=== PATIENT | male | born 1950 | race Caucasian/White ===

== ENCOUNTER 2019-06-12 20:52 | Inpatient (IN) | payer OTHER, MEDICARE, SELFPAY ==
[2019-06-12 20:54] VITALS: BP 170/90; PULSE 85; RESP 18; TEMP 36.6; O2SAT 93; BMI 27.1
--- NOTE | 2019-06-12 21:01 | ED_ITS ---
Entered by Sherry Nick, acting as scribe for Jethro Pinto MD, [facility] [place] H[place] - Fall General: Chief Complaint: Fall Stated Complaint: Confusion/Fall Time Seen by Provider: 06/12/19 21:01 Source: patient Mode of arrival: EMS Limitations: no limitations History of Present Illness: HPI Narrative: 68 yo Male presents to ED with complaint of fall and altered mental status. Pt states that he is feeling bad and he thinks it is because of his left foot. Pt states that it isn't getting any blood and he is getting ready to have it cut off. Pt states that he is here to find out if he has blood poisoning. Pt states that he was supposed to go to the vascular surgeon on May 31 but it was the holidays so they didn't go. Pt states that he fell trying to transfer from the wheelchair to the bed because he is really weak. complaint: fall Fall from: wheelchair Fall witnessed: yes, by family Place fall occurred: home Loss of consciousness: None Prolonged down time: no Symptoms prior to fall: none Associated symptoms-after fall: Reports weakness Review of Systems General: Reports: 10 or more systems reviewed and unremarkable except in HPI and below Musc: Reports: extremity pain Neuro: Reports: weakness in extremities PFSH ED PFSH: Statuses (acute, chronic, etc) shown below reflect problem list status as previously entered and may not be historically accurate Medical History (Updated 06/12/19 @ 22:37 by Agustín Fritz DO) CAD (coronary artery disease) (Chronic) CHF (congestive heart failure) (Chronic) CVA (cerebral vascular accident) (Acute) Diabetes (Chronic) Gout (Acute) HTN (hypertension) (Chronic) Hyperkalemia (Acute) Myocardial infarction (Acute) Osteomyelitis (Chronic) Pneumonia (Acute) Renal failure (Chronic) Sickle cell disease (Acute) Surgical History (Updated 06/12/19 @ 21:20 by Sherry Nick) Hx of right BKA (Acute) Social History Smoking and tobacco status: never smoked Physical Exam Const: COMMON NORMALS: no apparent distress, average body habitus, oriented x3, no limitations, healthy appearing, alert and well nourished HENMT: COMMON NORMALS: normocephalic, head/scalp atraumatic, hearing grossly normal bilaterally, external ears normal, EAC's normal, TM's normal bilaterally, external nose normal, nasal mucous membranes and turbinates normal, moist oral mucous membranes, oropharynx normal, dentition normal and gingiva normal HEAD & SCALP: normocephalic and atraumatic NOSE: external nose normal and nasal mucous membranes and turbinates normal EXTERNAL EAR: Yes external ears normal EXTERNAL AUDITORY CANAL: EAC's normal TYMPANIC MEMBRANE: TM's normal bilaterally Eye: COMMON NORMALS: PERRL, EOMs intact bilaterally, conjunctivae normal, no scleral icterus, no papilledema, normal visual lanza by confrontation and fundi normal bilaterally CONJUNCTIVA: Yes conjunctivae normal PUPIL: Yes PERRL DIRECT OPHTHALMOSCOPY: Yes no papilledema and Yes fundi normal bilaterally Neck/C-Spine: COMMON NORMALS: full ROM, supple, no meningeal signs, no JVD and no carotid bruits Chest: COMMONS NORMALS: inspection of chest normal and palpation of chest normal Resp: COMMON NORMALS: normal respiratory effort, no retractions, no use of accessory muscles, clear to auscultation bilaterally and percussion normal AUSCULTATION: clear to auscultation bilaterally PERCUSSION: percussion normal Cardio: COMMON NORMALS: no JVD, regular rate, regular rhythm, S1 normal heart sound, S2 normal heart sound, no gallops, no clicks, no murmurs, no rub and peripheral pulses 2+ throughout RATE: regular rate RHYTHM: regular rhythm HEART SOUNDS: S1 normal and S2 normal PERIPHERAL PULSES: pulses 2+ throughout GI: COMMON NORMALS: normal to inspection, nondistended, normoactive bowel sounds, soft to palpation, non-tender, no hepatosplenomegaly, no masses and no bruits PALPATION: Yes soft and Yes no hepatosplenomegaly : COMMON NORMALS: Yes no CVA tenderness BLADDER/KIDNEY EXAM: Yes no CVA tenderness Back/Pelvis: COMMON NORMALS: no CVA tenderness Extremity: COMMON NORMALS: normal to inspection, full ROM, normal capillary refill, no joint enlargement, no clubbing, cyanosis or edema, no calf tenderness and no pedal edema RIGHT LOWER EXTREMITY: Yes lower leg (Right BKA) LEFT LOWER EXTREMITY: Yes lower leg (Left lower extremity is warm to touch when co mpared to the right, mildly tender. There is a necrotizing ulcer on the heel of the left foot with foul-smelling drainage. Dorsalis pedis difficult to palpate.) Neuro: COMMON NORMALS: oriented x3 SENSORIUM/ORIENTATION: Yes alert MENINGEAL SIGNS: Yes no meningeal signs Skin: COMMON NORMALS: no rashes or lesions noted, no wounds, skin turgor normal, no jaundice, no petechiae and no mottling GENERAL SKIN EXAM: no rashes or lesions noted and turgor normal Course Consultations: Consultation #1: Discussed with Dr. Fritz and she kindly accepted the patient to her service. Time: 22:33 Vital Signs: Vital signs: Vital Signs Temperature 97.8 F 06/12/19 20:54 Pulse Rate 84 06/12/19 21:25 Respiratory Rate 18 06/12/19 22:36 Blood Pressure 180/66 06/12/19 21:25 Pulse Oximetry 94 06/12/19 21:25 MDM - Fall MDM Narrative: Medical decision making narrative: Patient was brought into the emergency department with concerns of altered mental status. In the emergency department he was alert and oriented however he has a chronic ulcer on his left heel. On going through his records at [facility] I see he has had an arterial duplex as well as vascular evaluation of his aorta and lower extremity arteries. He does have blockage of the left popliteal, all the arteries above that are patent. I also saw an MRI from April which showed he has osteomyelitis of the calcaneus bone on the left. He apparently had been on antibiotics until recently. In the records he was advised to have a left below-knee amputation which the patient was open to but his apparently was hesitant. These nights the patient also told me that he believes he needs an amputation and he is ready for this. He is therefore admitted for IV antibiotics for the osteomyelitis and consultation with orthopedic surgery/podiatry for evaluation and to see if the patient is a candidate for a left below-knee amputation. The patient also has a history of end-stage renal disease and he is on hemodialysis Wednesdays and Fridays. No imaging was done of his lower extremity because he already has diagnosed peripheral artery disease as well as osteomyelitis. Medical Records: Attestation: I reviewed the patient's medical records. Medical records narrative: Percutaneous angiogram and intervention done on 05/03/2019 at [facility] in [place]. Angiographic findings include aorta are widely patent, renal artery origins are widely patent iliacs common iliac artery bilaterally widely patent, internal iliac arteries patent. Femoral vessels common femoral artery bilaterally widely patent, bilateral profunda femoral arteries widely patent left superficial femoral artery widely patent. Popliteal left severe stenosis right above knee joint. Tibial vessels left posterior tibial occluded, peroneal occluded. MRI of the ankle without contrast on the left performed at [facility] in [place] on 04/27/2019. Impression among other things include osteomyelitis involving the posterior superior lateral aspect of the posterior process of the calcaneus. Ultrasound duplex arterial of the left leg showed severe arterial insufficiency at rest involving the left lower extremity. Lab Data: Attestation: I reviewed the patient's lab results. Labs: Lab Results 06/12/19 06/12/19 06/12/19 Range/Units 21:18 21:18 21:18 WBC 8.2 (4.0-10.0) 10^3/ uL RBC 3.14 L (4.1-5.3) 10^6/u L Hgb 8.9 L (11.7-16.6) g/dL Hct 28.7 L (42.0-52.0) % MCV 91.4 (80-94) fL MCH 28.3 (28.0-34.0) pg MCHC 31.0 (30.0-36.0) g/dL RDW 14.4 (12.1-15.1) % Plt Count 200 (130-400) 10^3/c mm MPV 10.0 (7.4-10.4) fL Neut % (Auto) 81.5 % Lymph % (Auto) 6.0 % [place] % (Auto) 10.5 % Eos % (Auto) 1.1 % Baso % (Auto) 0.4 % Neut # (Auto) 6.7 (1.8-7.7) 10^3/u L Lymph # (Auto) 0.5 L (0.8-4.8) 10^3/u L [place] # (Auto) 0.9 (0.2-0.9) 10^3/u L Eos # (Auto) 0.1 (0.0-0.8) 10^3/u L Baso # (Auto) 0.0 (0.0-0.1) 10^3/u L Nucleated RBC % (a uto) 0 % Nucleated RBCs # 0.0 /100WBC Sodium 146 H (136-145) mmol/L Potassium 4.4 (3.5-5.1) mmol/L Chloride 96 L (98-107) mmol/L Carbon Dioxide 27 (22-29) mmol/L Anion Gap 27.4 H (5-19) BUN 48 H (8-23) mg/dL Creatinine 6.4 H* (0.7-1.2) mg/dL GFR Calculation 8.7 L (90-130) mL/min Glucose 140 H (74-106) mg/dL Lactate 2.7 H (0.5-2.2) mmol/L Calcium 9.7 (8.8-10.2) mg/Dl Total Bilirubin 0.4 (0.15-1.2) mg/dL AST 18 (0-40) U/L ALT 11 (0-41) U/L Alkaline Phosphata se 181 H (40-130) IU/L C-Reactive Protein 120.9 H (0.0-4.9) mg/L Total Protein 7.5 (6.6-8.7) g/dL Albumin 3.7 (3.5-5.2) g/dL Globulin 3.8 (1.3-4.6) g/dL Discharge Plan Discharge Admit Provider: Agustín Fritz Prescriptions: No Action Adult Low Dose Aspirin 81 mg Tablet,Delayed Release (Dr/Ec) 81 mg PO DAILY RF: 0 clopidogrel 75 mg Tablet 75 mg PO DAILY RF: 0 sevelamer HCl 800 mg Tablet 800 mg PO TID RF: 0 tramadol 50 mg Tablet 50 mg PO Q4H PRN (Reason: Pain) RF: 0 isosorbide mononitrate 120 mg Tablet Extended Release 24 Hr 120 mg PO DAILY RF: 0 pravastatin 80 mg Tablet 80 mg PO BEDTIME RF: 0 amlodipine 10 mg Tablet 10 mg PO DAILY RF: 0 levofloxacin 750 mg Tablet 750 mg PO DAILY RF: 0 naloxone 4 mg/actuation [place],Non-Aerosol 4 mg INTRANASAL UNK RF: 0 Coding Level of Care Code ED Tailercpa for Chg Fwd Exam Problem Focused The documentation recorded by the Sandoval hennessy Carmen, accurately reflects the service I personally performed and the decisions made by Millie bee Adegoke I, MD, [facility] [place] Jun 12, 2019 20:52
[2019-06-12 21:25] VITALS: BP 180/66; PULSE 84; RESP 21; O2SAT 94
[2019-06-12 21:41] LABS: Basophils % 0.4 %; Eosinophils # 0.1 10^3/uL (0.0-0.8); Eosinophils % 1.1 %; Hematocrit 28.7 % (42.0-52.0); Hemoglobin 8.9 g/dL (11.7-16.6); Lymphocytes # 0.5 10^3/uL (0.8-4.8); Mean Corpuscular Hemoglobin 28.3 pg (28.0-34.0); Mean Corpuscular Volume 91.4 fL (80-94); Monocytes # 0.9 10^3/uL (0.2-0.9); Monocytes % 10.5 %; Neutrophils # 6.7 10^3/uL (1.8-7.7); Neutrophils % 81.5 %; Nucleated Red Blood Cells % 0 %; Platelet Count 200 10^3/cmm (130-400); Red Blood Count 3.14 10^6/uL (4.1-5.3); Red Cell Distribution Width 14.4 % (12.1-15.1); White Blood Count 8.2 10^3/uL (4.0-10.0)
[2019-06-12 22:01] LABS: Lactate (Lactic Acid level) 2.7 mmol/L (0.5-2.2)
[2019-06-12 22:02] LABS: Alanine Aminotransferase 11 U/L (0-41); Albumin Level 3.7 g/dL (3.5-5.2); Alkaline Phosphatase 181 IU/L (40-130); Anion Gap 27.4 (5-19); Aspartate Amino Transferase 18 U/L (0-40); Blood Urea Nitrogen 48 mg/dL (8-23); C Reactive Protein 120.9 mg/L (0.0-4.9); Calcium 9.7 mg/Dl (8.8-10.2); Carbon Dioxide 27 mmol/L (22-29); Chloride 96 mmol/L (98-107); Globulin 3.8 g/dL (1.3-4.6); Glomerular Filtration Rate 8.7 mL/min (90-130); Glucose 140 mg/dL (74-106); Potassium 4.4 mmol/L (3.5-5.1); Sodium 146 mmol/L (136-145); Total Bilirubin 0.4 mg/dL (0.15-1.2); Total Protein 7.5 g/dL (6.6-8.7)
--- NOTE | 2019-06-12 22:15 | PC.NURSE ---
Spoke with pt over the phone. Home medication list collected - NKDA. Pt states pt has had an increase of confusion over the past 2-3 days with nausea and poor appetite. unsure if pt hit head during fall, pt was found in floor by and pt is poor historian. states pt is being seen in [facility] [place] by surgeon for pending left foot amputation. states last dialysis treatment was Thursday, and is due for dialysis tomorrow.
--- NOTE | 2019-06-12 22:34 | P.HP_ITS ---
Providers/Chief Complaint Chief Complaint: OSTEOMYELITIS RIGHT CALCANEOUS History of Present Illness Neel Austin is a 68 year old male with past medical history of ESRD on hemodialysis MWF, CHF, hypertension, COPD, DMII, severe peripheral vascular disease status post right BKA and severe peripheral vascular disease on the left, recently diagnosed osteomyelitis on antibiotics since April presents with left foot nonhealing ulcer. Patient was advised to get left BKA at his previous facility but his initially declined. Patient was diagnosed with Osteomyelitis of the left foot based on an MRI done in April and has been on antibiotics since (ran out yesterday as per report). Patient now presents with altered mental status and left heel ulcer that is foul-smelling. Patient unable to give proper history so history obtained from chart and EMR. As per ED, patient's found him on the floor very confused. He has been more altered than his baseline for the past couple of days. Noted to have sepsis with elevated lactate and foul-smelling ulcer on the left foot Review of Systems Narrative: Unable to obtain due to mental status refer to HPI Medications/Allergies Home Medications Medication Instructions Recorded Confirmed Last Taken Type amlodipine 10 mg PO DAILY 06/12/19 06/12/19 Unknown History aspirin [Adult Low Dose Aspirin] 81 mg PO DAILY 06/12/19 06/12/19 Unknown History clopidogrel 75 mg PO DAILY 06/12/19 06/12/19 Unknown History isosorbide mononitrate 120 mg PO DAILY 06/12/19 06/12/19 Unknown History levofloxacin 750 mg PO DAILY 06/12/19 06/12/19 1 Day Ago History ~06/11/19 naloxone 4 mg INTRANASAL UNK 06/12/19 06/12/19 Unknown History pravastatin 80 mg PO BEDTIME 06/12/19 06/12/19 Unknown History sevelamer HCl 800 mg PO TID 06/12/19 06/12/19 Unknown History tramadol 50 mg PO Q4H PRN 06/12/19 06/12/19 Unknown History Allergies Allergy/AdvReac Type Severity Reaction Status Date / Time No Known Allergies Allergy Verified 06/12/19 21:29 PFSH Acute PFSH: Statuses (acute, chronic, etc) shown below reflect problem list status as previously entered and may not be historically accurate Medical History CAD (coronary artery disease) (Chronic) CHF (congestive heart failure) (Chronic) CVA (cerebral vascular accident) (Acute) Diabetes (Chronic) Gout (Acute) HTN (hypertension) (Chronic) Hyperkalemia (Acute) Myocardial infarction (Acute) Osteomyelitis (Chronic) Pneumonia (Acute) Renal failure (Chronic) Sickle cell disease (Acute) Surgical History Hx of right BKA (Acute) Social History Smoking and tobacco status: never smoked Vitals/I&O/Wt Last Vital Signs Temp 97.8 F 06/12/19 20:54 Pulse 84 06/12/19 21:25 Resp 21 H 06/12/19 21:25 BP 180/66 06/12/19 21:25 Pulse Ox 94 06/12/19 21:25 Weight last 48 hrs Weight 90.718 kg Physical Exam Const: COMMON NORMALS: no apparent distress EXAM LIMITATIONS: altered mental status Neck/C-Spine: COMMON NORMALS: supple Resp: COMMON NORMALS: normal respiratory effort AUSCULTATION: clear to auscultation bilaterally Cardio: RATE: tachycardic HEART SOUNDS: S1 normal and S2 normal GI: COMMON NORMALS: normal to inspection, nondistended, normoactive bowel sounds Extremity: OTHER: + Right BKA,+ left heel ulcer foul-smelling and black, erythematous Skin: OTHER: + + L foot ulcer black and foul smelling Data : 06/12/19 21:18 06/12/19 21:18 Micro: Microbiology 06/12/19 21:22 Blood Culture - Preliminary Blood SPECIMEN COLLECTED 06/12/19 21:18 Blood Culture - Preliminary Blood SPECIMEN COLLECTED A&P Assessment and plan (1) CAD (coronary artery disease): Status: Chronic Code(s): I25.10 - Atherosclerotic heart disease of [place] coronary artery without angina pectoris (2) CHF (congestive heart failure): Status: Chronic Code(s): I50.9 - Heart failure, unspecified (3) Diabetes: Status: Chronic Code(s): E11.9 - Type 2 diabetes mellitus without complications (4) Renal failure: Status: Chronic Code(s): N19 - Unspecified kidney failure (5) Osteomyelitis: Status: Chronic Code(s): M86.9 - Osteomyelitis, unspecified (6) HTN (hypertension): Status: Chronic Code(s): I10 - Essential (primary) hypertension (7) Sepsis: #Altered mental status 2/2 osteomyelitis of the left heel with sepsis (elevated lactate, tachycardia, altered mental status) ?IV Vanco and Zosyn ?ESR CRP ?Podiatry follow-up for amputation of left leg Trend lactate ?IV fluids with caution in setting of ESRD and CHF #ESRD on hemodialysis Thursday ?Dialysis tomorrow #Hypertension ?Continue with home medication #DMII - ISS #Continue with rest of chronic home medications # DVT ppx: Heparing subq Status: Acute Code(s): A41.9 - Sepsis, unspecified organism Attestations Medical Necessity Statement*: Patient requires more than 2 midnights of hospitalization inpatient for osteomyelitis of the left foot and altered mental status Coding Level of Care Code Acute [employer] for [facility] Diagnoses CAD (coronary artery disease) I25.10 CHF (congestive heart failure) I50.9 Diabetes E11.9 Renal failure N19 Osteomyelitis M86.9 HTN (hypertension) I10 Sepsis A41.9
[2019-06-12 22:36] VITALS: RESP 18
[2019-06-12] MEDS: morphine 4 mg/mL SDV 1 mL 6 MG IVP (22:36)
[2019-06-12] MEDS: cefTRIAXone 2,000 MG in sodium chloride 0.9% (plus) 50 ML 100 MG IV (22:55)
[2019-06-12] MEDS: vancomycin 1,000 MG in sodium chloride 0.9% 250 ML 250 MG IV (23:29)
--- NOTE | 2019-06-12 23:50 | PC.NURSE ---
PT ARRIVED TO ROOM VIA GURNEY FROM ER. INTRODUCTION OF STAFF AND AIDET. ADMISSION AND PHYSICAL ASSESSMENTS COMPLETED AT THIS TIME. PT ORIENTED TO ROOM, BED, TV, AND CALL LIGHT SYSTEMS. NOTED THAT PT HAS LARGE ABRASION TO LEFT ELBOW, SEVERAL ABRASIONS TO LEFT KNEE, TOP OF FOOT AND TOES. ALSO NOTED THAT PT HAS A FULLY INVOLVED PRESSURE SORE TO LEFT HEEL, NECROTIC TISSUE NOTED COVERING HEEL. NO DRAINAGE NOTED AT THIS TIME, BUT DOES HAVE A FOUL ODOR EMITTING FROM HEEL. PT ALSO NOTED WITH RIGHT BELOW THE KNEE AMPUTATION.
[2019-06-12 23:53] VITALS: BP 166/93; PULSE 80; RESP 18; TEMP 36.8; O2SAT 92
[2019-06-13] VITALS (7 sets, daily range): BP systolic 171–205; BP diastolic 77–119; PULSE 79–87; RESP 18–20; TEMP 36.6–37.1; O2SAT 90–96
--- NOTE | 2019-06-13 00:31 | PC.PHAR ---
This dialysis patient received Vancomycin 1gm IVPB in ER on 06/12/19 and will receive 1gm Vancomycin IVPB after his dialysis session on Thursday06/13/19 and then will have a Vancomycin level obtained before his dialysis session on 06/15/19 to determine if dosage adjustment is needed.
[2019-06-13] MEDS: atorvastatin 40 mg Tablet 20 MG PO ×2 (04:11→22:41)
[2019-06-13] MEDS: sodium chloride 0.9% 1,000 ML 75 ML IV (04:12)
[2019-06-13] MEDS: heparin 5,000 unit/mL INJ 1 mL 5000 UNIT SUBCUT ×3 (04:12→22:43)
[2019-06-13 06:23] LABS: Basophils % 0.3 %; Eosinophils # 0.1 10^3/uL (0.0-0.8); Eosinophils % 0.7 %; Hemoglobin 9.6 g/dL (11.7-16.6); Lymphocytes # 0.6 10^3/uL (0.8-4.8); Lymphocytes % 6.9 %; Mean Corpuscular Hemoglobin 29.2 pg (28.0-34.0); Mean Corpuscular Volume 94.2 fL (80-94); Mean Platelet Volume 9.9 fL (7.4-10.4); Monocytes # 0.8 10^3/uL (0.2-0.9); Monocytes % 8.9 %; Neutrophils # 7.3 10^3/uL (1.8-7.7); Neutrophils % 82.5 %; Nucleated Red Blood Cells % 0 %; Platelet Count 201 10^3/cmm (130-400); Red Blood Count 3.29 10^6/uL (4.1-5.3); Red Cell Distribution Width 14.2 % (12.1-15.1); White Blood Count 8.8 10^3/uL (4.0-10.0)
[2019-06-13 06:34] LABS: Alanine Aminotransferase 90 U/L (0-41); Albumin Level 3.6 g/dL (3.5-5.2); Alkaline Phosphatase 158 IU/L (40-130); Anion Gap 24.7 (5-19); Aspartate Amino Transferase 127 U/L (0-40); Blood Urea Nitrogen 51 mg/dL (8-23); Calcium 9.7 mg/Dl (8.8-10.2); Carbon Dioxide 25 mmol/L (22-29); Chloride 89 mmol/L (98-107); Globulin 3.1 g/dL (1.3-4.6); Glomerular Filtration Rate 7.7 mL/min (90-130); Glucose 95 mg/dL (74-106); Potassium 4.7 mmol/L (3.5-5.1); Sodium 134 mmol/L (136-145); Total Bilirubin 0.6 mg/dL (0.15-1.2); Total Protein 6.7 g/dL (6.6-8.7)
[2019-06-13 08:20] LABS: Vancomycin Trough 14.4 ug/mL (10-15)
[2019-06-13] MEDS: sevelamer 800 mg Tablet PO ×3 (09:00→22:40)
[2019-06-13] MEDS: isosorbide mononitrate 20 mg Tablet 120 MG PO (09:01)
[2019-06-13] MEDS: clopidogrel 75 mg Tablet PO (09:01)
[2019-06-13] MEDS: amlodipine 10 mg Tablet PO (09:01)
[2019-06-13] MEDS: aspirin 81 mg EC Tablet PO (09:01)
[2019-06-13] MEDS: piperacillin-tazobactam 3.375 GM in sodium chloride 0.9% (plus) 50 ML IV ×2 (09:08→22:40)
--- NOTE | 2019-06-13 13:47 | P.PN_ITS ---
Subjective Subjective: Interval history: admitted overnight. NO acute events. Denies any CP, N/V, headache. States he is waiting for his leg to be chopped off. Vitals/I&O/Wt Last Vital Signs Temp 98.0 F 06/13/19 11:46 Pulse 86 06/13/19 11:46 Resp 20 H 06/13/19 11:46 BP 175/89 06/13/19 11:46 Pulse Ox 91 06/13/19 11:46 06/12/19 06/13/19 06/13/19 22:59 06:59 14:59 Intake Total 50 / 50 Balance 50 / 50 Weight last 48 hrs Weight 89.386 kg Weight 87.317 kg Weight 90.718 kg Physical Exam Narrative: EXAM NARRATIVE: General: No acute distress, AO x3 HEENT: PERRLA, pupils bilaterally equal and reactive Chest: Normal vesicular breath sounds, no added sounds, equal good air entry bilaterally CVS: S1-S2 regular, no murmurs, no tachycardia, no gallops, no rubs Abdomen: Soft, nontender, no organomegaly, bowel sounds present Neuro: No focal deficits, no facial deformity, AO x3, power 5/5 in all limbs Ext: right BKA, left heel bandaged. Pulses faint, foot dry. Data Micro: Micro: Microbiology 06/12/19 21:22 Blood Culture - Pr eliminary Blood SPE[facility]IMEN [facility] 06/12/19 21:18 Blood Culture - Pr eliminary Blood SPECIMEN [facility] Imaging^: Echo: Radiologist's impression: 06/19 FINDINGS Left Ventricle Diffuse hypokinesia left ventricle with ejection fraction around 40%. Moderate concentric left ventricular hypertrophy.Grade III/IV diastolic dysfunction (restrictive filling pattern), severely elevated filling pressures. Right Ventricle The right ventricle is normal in size and function. Right Atrium The right atrium is normal in size. Left Atrium Mildly increased left atrial size. Mitral Valve Thickened mitral valve. Moderate mitral annular calcification. Mild to moderate mitral valve regurgitation. Aortic Valve Thickened and stenotic aortic valve.trace aortic valve regurgitation. Aortic valve sclerosis. Tricuspid Valve Trace to mild tricuspid valve regurgitation. Estimated pulmonary artery peak systolic pressure of 39 mmHg Pulmonic Valve Structurally normal pulmonic valve without significant stenosis. There is no pulmonic regurgitation. Pericardium Normal pericardium without effusion. Aorta Normal ascending aorta dimension. CONCLUSIONS #1. Normal LV size with a diminished ejection fraction of 40%. #2. Wall motion abnormality as mentioned above. #3. Moderate concentric left hypertrophy. #4. Features of grade 3 left ventricular diastolic dysfunction. #5. Mild left atrial enlargement. #6. Moderate mitral annular calcification with a mild to moderate mitral regurgitation. #7. Features of aortic valve sclerosis. #8. Trace to mild tricuspid with a trace of aortic valve regurgitation. There is no pericardial effusion. There are no intracardiac masses. No previous study is available for comparison. Other Data: Other data: Cathh 06/19 Diagnostic Cath Status: Elective Diagnostic Findings The left main was a medium caliber vessel with a diffuse disease. The distal left main was found to have around 30% narrowing. The left and descending artery is a medium caliber vessel which appears to wrap around the LV apex minimally. The mid LAD was found to have around 60% diffuse narrowing. The left internal mammary artery graft was found to be attached distal to the lesion. Competitive blood flow was noted in the distal LAD. The first to diagonal branch was found to have for mild to moderate diffuse disease. The artery gives off multiple small septal perforators which were found to have moderate to severe disease, in the proximal segments, involving the ostium. There is a high diagonal branch, appears to be intermedius artery, found to have around 95% segmental stenosis in the mid segment. Moderate diffuse disease was noted in the proximal segment of the artery. The left circumflex artery was found to have moderately severe diffuse disease in the proximal and midsegment. Just before the first obtuse marginal branch, there was a high-grade around 80% lesion. The first obtuse marginal artery was found to have moderate diffuse disease in the proximal segment. The distal circumflex artery was found to have moderate to severe diffuse disease. The right coronary artery was found to be extensively stented in the proximal and mid segments. Overlapping stents were noted proximally. There is an area of in stent stenosis of around 50%, in the proximal stented segment of the artery. The PDA branch was found to have moderate to severe diffuse disease .Mld to moderate diffuse disease was noted in the PLV branch of the right coronary artery. The BURLESON to the LAD was found to be patent. No significant stenotic lesions were noted in the BURLESON. The LAD distal to the anastomosis was found to have mild diffuse disease. The LVEDP was around 23 mmHg.. LM: Mild 30% stenosis, JAYDEN: 3 flow. mLAD to dLAD: Moderate 60% stenosis, JAYDEN: 3 flow. Proximal Circumflex Coronary Artery: Severe 90% stenosis, JAYDEN: 2 flow. Proximal Circumflex Coronary Artery: Severe 85% stenosis, JAYDEN: 2 flow. Mid Circumflex Coronary Artery to dCIRC: Moderate 70% stenosis, JAYDEN: 3 flow. 1st OM: Moderate 50% stenosis, JAYDEN: 3 flow. Ramus: Severe 95% stenosis, JAYDEN: 3 flow. pRCA to dRCA: Minimal luminal irregularities, JAYDEN: 3 flow. RPDA: Moderate 65% stenosis, JAYDEN: 3 flow. One graft visualized. BURLESON to dLAD: patent. Coronary angiography shows right dominance. PCI Status: Elective PCI Indication: NSTE - ACS Interventional Findings Successful balloon angioplasty followed by drug-eluting stent placement in proximal and mid left circumflex artery. These were tight calcified lesions with napkin ring nature. Both lesions were treated first with AB TREK 2.0X12 mm balloon followed by [place] 2.5x12 and 2.5x8 mm stent placement in mid and proximal segment of the Left Circumflex artery. Conclusions -year-old white male with history of coronary disease, status post single vessel coronary to bypass surgery in June 2017, end stage renal disease, on hemodialysis, presented wi an episode of syncope/hypotension. Elevated troponin I. Abnormal myocardial perfusion imaging. Cardiac catheterization revealing the following. There is severe coronary artery disease with five vessel disease. 30% stenosis in the distal left main. Cystoscopy percent diffuse narrowing in the mid LAD. High-grade lesion in the proximal to mid left circumflex artery. High-grade lesion in the intermedius artery(high diagonal branch), off around 95%. Moderately severe diffuse disease in the distal circumflex artery of around 60-70%. Mild to moderate diffuse disease in the other vessels. Patent BURLESON to the distal LAD. LVEDP around 23 mmHg. Recommendations I discussed and reviewed the cardiac catheterization data with Dr. Arthur. It was thought to be appropriate to consider PCI of the circumflex artery lesions and possible intervention of the intermedius artery. Dr. Arthur took over further management of this patient this point. Diagnostic RX Recommendation: PCI w/o planned CABG A&P Assessment and plan (1) Osteomyelitis: Status: Acute Code(s): M86.9 - Osteomyelitis, unspecified (2) Renal failure: Status: Acute Code(s): N19 - Unspecified kidney failure (3) Sepsis: Status: Acute Code(s): A41.9 - Sepsis, unspecified organism (4) Renal failure: Status: Chronic Code(s): N19 - Unspecified kidney failure (5) Diabetes: Status: Chronic Code(s): E11.9 - Type 2 diabetes mellitus without complications (6) CHF (congestive heart failure): Status: Chronic Code(s): I50.9 - Heart failure, unspecified (7) CAD (coronary artery disease): Status: Chronic Code(s): I25.10 - Atherosclerotic heart disease of [place] coronary artery without angina pectoris (8) HTN (hypertension): Status: Chronic Code(s): I10 - Essential (primary) hypertension Additional A&P Information Additional A&P Information: Altered mental status improved, patient back at baseline. Doubt that chronic osteomyelitis (>1 year) was contributing to the picture of metabolic encephalopathy. Most likely dehydration, elevated sugars and CKD. Chronic left heel osteomyelitis. With exposure of tendons and bones. With h/o CAD can have significant PAD as well. Will get RAFAEL and arterial duplex. Consult podiatry. Pt wants BKA as does not want to have this lifestyle anymore. #ESRD on hemodialysis Thursday ?Dialysis per nephrology. #Hypertension ?Continue with home medication #DMII fingersticks are currently well controlled. HbA1c in the morning. - ISS #Continue with rest of chronic home medications # DVT ppx: Heparing subq Attestations Medical Necessity Statement*: Chronic osteo Time Spent in Patient Care: 16 - 35 minutes Coding Level of Care Code Acute Instructor Bridge for g Fwd Diagnoses Osteomyelitis M86.9 Renal failure N19 Sepsis A41.9 Renal failure N19 Diabetes E11.9 CHF (congestive heart failure) I50.9 CAD (coronary artery disease) I25.10 HTN (hypertension) I10
[2019-06-13 13:54] LABS: Glucose Point of Care 78 mg/dL (70-110)
--- NOTE | 2019-06-13 14:09 | XR_ITS ---
WS: [id number] FOOT LEFT TECHNIQUE: 2 views of the left foot CLINICAL INFORMATION: r/o osteo COMPARISON: None. FINDINGS: Osteopenia. Amputation second digit. No evidence of osteomyelitis. Degenerative arthritis midfoot and IP joints. Vascular calcification. Plantar calcaneal spurring. XR/XR foot LT 2V [id number] IMPRESSION: Amputation second digit. No evidence of osteomyelitis.
--- NOTE | 2019-06-13 14:11 | USCV_ITS ---
Neel Austin Age: 68 Gender: M : 1950 Exam Date: 06/13/2019 15:14 Ordering Phys: Yimi Pollack MD Technologist: Bautista Garcia [place] [facility] [place] Risk Factors: Previous Vascular Surgery: RIGHT LEFT BP: 130.0 / 80.00 BP: 130.0/ 80.00 0 0 Waveform Velocity (cm/s) Velocity (cm/s) Waveform Iliac Prox 76.9 Biphasic Iliac Mid 80.0 Biphasic Iliac Distal 74.6 Biphasic CAR LOT ATTENDANT 72.2 Biphasic SFA Prox 66.0 Monophasic SFA Mid 80.0 Monophasic SFA Dist 73.0 Biphasic POP 81.6 Monophasic CHARGE ENTRY CLERK 22.5 60 DPA 76.1 90 RAFAEL 0.7 FINDINGS Abnormal resting RAFAEL on the left side Monophasic, low velocity continuous waveform in the posterior tibial artery on the left side CONCLUSIONS Diminished resting RAFAEL on the left side, suggestive of moderate peripheral artery disease. Features of collateral filling in the posterior tibial artery on the left side Dr Anna Stubbs MD FACC (Electronically Signed) Final Date: 13 June 2019 19:16 S
--- NOTE | 2019-06-13 14:52 | PM.CONSULT ---
Providers/Reason For Consult Consulting Physican/Specialty*: shanda menchaca md telenephrology Reason for Consult*: ESRD management Attending Physician: Yimi Pollack MD History of Present Illness History of Present Illness Neel Austin is a 68 year old male admitted w/ Left foot OM. pt has ESRD on HD MWF, he has htn, dm, both systolic and diastolic CHF. Pt here w/ weakness and left foot OM Review of Systems Eyes: Reports: blurry vision ENMT: Reports: other Card: Reports: palpitations, edema and swelling of feet/ankles Resp: Reports: shortness of breath GI: Reports: nausea, constipation and other Musc: Reports: extremity swelling and joint pain Psych: Reports: anxiety and depression Meds/Allergies Home Medications and Allergies Home Medications Medication Instructions Recorded Confirmed Type amlodipine 10 mg PO DAILY 06/12/19 06/12/19 History aspirin [Adult Low Dose Aspirin] 81 mg PO DAILY 06/12/19 06/12/19 History clopidogrel 75 mg PO DAILY 06/12/19 06/12/19 History isosorbide mononitrate 120 mg PO DAILY 06/12/19 06/12/19 History levofloxacin 750 mg PO DAILY 06/12/19 06/12/19 History naloxone 4 mg INTRANASAL UNK 06/12/19 06/12/19 History pravastatin 80 mg PO BEDTIME 06/12/19 06/12/19 History sevelamer HCl 800 mg PO TID 06/12/19 06/12/19 History tramadol 50 mg PO Q4H PRN 06/12/19 06/12/19 History Allergies Allergy/AdvReac Type Severity Reaction Status Date / Time No Known Allergies Allergy Verified 06/12/19 21:29 Current Medications Current Medications Generic Name Dose Route Start Last Admin Trade Name Freq PRN Reason Stop Dose Admin Amlodipine Besylate 10 mg 06/13/19 09:00 06/13/19 09:01 Norvasc PO 10 mg DAILY MONSTER Administration Aspirin 81 mg 06/13/19 09:00 06/13/19 09:01 Aspirin Ec PO 81 mg DAILY MONSTER Administration Atorvastatin Calcium 20 mg 06/13/19 00:15 06/13/19 04:11 Lipitor PO 20 mg BEDTIME MONSTER Administration Clopidogrel Bisulfate 75 mg 06/13/19 09:00 06/13/19 09:01 Plavix PO 75 mg DAILY MONSTER Administration Heparin Sodium (Beef Lung) 5,000 unit 06/13/19 00:15 06/13/19 12:46 Heparin SUBCUT 5,000 unit Q12H MONSTER Administration Isosorbide Mononitrate 120 mg 06/13/19 09:00 06/13/19 09:01 Ismo PO 120 mg DAILY MONSTER Administration Sevelamer Carbonate 800 mg 06/13/19 09:00 06/13/19 09:00 Renvela PO 800 mg TID MONSTER Administration PFSH Acute PFSH: Statuses (acute, chronic, etc) shown below reflect problem list status as previously entered and may not be historically accurate Medical History CAD (coronary artery disease) (Chronic) CHF (congestive heart failure) (Chronic) CVA (cerebral vascular accident) (Acute) Diabetes (Chronic) Gout (Acute) HTN (hypertension) (Chronic) Hyperkalemia (Acute) Myocardial infarction (Acute) Osteomyelitis (Chronic) Pneumonia (Acute) Renal failure (Chronic) Sickle cell disease (Acute) Surgical History Hx of right BKA (Acute) Social History Smoking and tobacco status: never smoked Vitals/I&O/Wt Last Vital Signs Temp 98.0 F 06/13/19 11:46 Pulse 86 06/13/19 11:46 Resp 20 H 06/13/19 11:46 BP 175/89 06/13/19 11:46 Pulse Ox 91 06/13/19 11:46 06/12/19 06/13/19 06/13/19 22:59 06:59 14:59 Intake Total 50 / 50 Balance 50 / 50 Weight last 48 hrs Weight 89.386 kg Weight 87.317 kg Weight 90.718 kg Physical Exam Narrative: EXAM NARRATIVE: obese, nard Const: COMMON NORMALS: oriented x3 HENMT: COMMON NORMALS: normocephalic HEAD & SCALP: normocephalic FACE & SINUS: normal facial exam Neck/C-Spine: COMMON NORMALS: no JVD Chest: COMMONS NORMALS: inspection of chest normal Resp: COMMON NORMALS: normal respiratory effort AUSCULTATION: crackles Cardio: COMMON NORMALS: no JVD, regular rate, S1 normal heart sound, S2 normal heart sound and no clicks RATE: regular rate HEART SOUNDS: S1 normal, S2 normal and murmur Extremity: NARRATIVE EXTREMITY EXAM: lle bandaged. b/l legs 1+ edema Neuro: COMMON NORMALS: oriented x3 Data Micro: Micro: Microbiology 06/12/19 21:22 Blood Culture - Pr eliminary Blood SPECIMEN [facility] 06/12/19 21:18 Blood Culture - Pr eliminary Blood SPE[facility] A&P Additional A&P Information Additional A&P Information: 1. ESRD- HJD MWF- hd now 3.5 hrs, 3k, rmeove 2.5 l 2. leg infection per pmd 3. monitor bp, phos, and hgb Coding Level of Care Code Acute Vascular Physician for Angel Winn
[2019-06-13 15:46] LABS: Iron 106 ug/dL (59-158); Percent Saturation 58.5 % (20-50); Total Iron Binding Capacity 181 mg/dL; Unsaturated Iron Binding 75 ug/dL (112-347)
[2019-06-13] MEDS: vancomycin 1,000 MG in sodium chloride 0.9% 250 ML 250 MG IV (15:51)
[2019-06-13 16:22] LABS: Lactic Acid 3.2 mmol/L (0.5-2.2)
[2019-06-13 16:57] LABS: Erythrocyte Sedimentation Rate 55 mm/hr (0-10)
[2019-06-13 17:18] LABS: Hepatitis B Surface Antigen. Non-Reactive (Nonreactive)
[2019-06-13 17:54] LABS: Hepatitis C Virus Antibody Non-Reactive (Nonreactive)
--- NOTE | 2019-06-13 19:13 | PC.NURSE ---
Introduction of staff to family, report received, aidet. Pt continues to be dialysis at this time.
--- NOTE | 2019-06-13 20:54 | PC.NURSE ---
Pt back to room at this time. No complaints of pain voiced.
[2019-06-13 22:39] LABS: Glucose Point of Care 72 mg/dL (70-110)
[2019-06-14] VITALS: BP 199/64; PULSE 79; RESP 22; TEMP 36.4; O2SAT 93
[2019-06-14 03:27] LABS: Glucose Point of Care 77 mg/dL (70-110)
[2019-06-14 03:37] LABS: Alanine Aminotransferase 389 U/L (0-41); Albumin Level 3.7 g/dL (3.5-5.2); Alkaline Phosphatase 162 IU/L (40-130); Anion Gap 20.5 (5-19); Aspartate Amino Transferase 467 U/L (0-40); Blood Urea Nitrogen 31 mg/dL (8-23); Calcium 9.6 mg/Dl (8.8-10.2); Carbon Dioxide 25 mmol/L (22-29); Chloride 94 mmol/L (98-107); Globulin 3.7 g/dL (1.3-4.6); Glomerular Filtration Rate 12.1 mL/min (90-130); Glucose 80 mg/dL (74-106); Potassium 4.5 mmol/L (3.5-5.1); Sodium 135 mmol/L (136-145); Total Bilirubin 0.6 mg/dL (0.15-1.2); Total Protein 7.4 g/dL (6.6-8.7)
[2019-06-14 03:56] LABS: Basophils % 0.5 %; Eosinophils # 0.1 10^3/uL (0.0-0.8); Eosinophils % 1.8 %; Hematocrit 31.6 % (42.0-52.0); Hemoglobin 9.9 g/dL (11.7-16.6); Lymphocytes # 0.5 10^3/uL (0.8-4.8); Lymphocytes % 6.4 %; Mean Corpuscular HGB Conc 31.3 g/dL (30.0-36.0); Mean Corpuscular Volume 92.7 fL (80-94); Mean Platelet Volume 10.6 fL (7.4-10.4); Monocytes # 0.6 10^3/uL (0.2-0.9); Monocytes % 7.7 %; Neutrophils # 6.5 10^3/uL (1.8-7.7); Neutrophils % 82.8 %; Nucleated Red Blood Cells % 0 %; Platelet Count 197 10^3/cmm (130-400); Red Blood Count 3.41 10^6/uL (4.1-5.3); Red Cell Distribution Width 14.5 % (12.1-15.1); White Blood Count 7.8 10^3/uL (4.0-10.0)
[2019-06-14 04:00] VITALS: BP 184/108; PULSE 79; RESP 20; TEMP 36.6; O2SAT 94
[2019-06-14] MEDS: TRAMadol 50 mg Tablet PO ×2 (04:28)
[2019-06-14 06:38] LABS: Glucose Point of Care 87 mg/dL (70-110)
--- NOTE | 2019-06-14 06:56 | P.PN_ITS ---
Subjective Subjective: Interval history: c/o foot pain and nausea w/ pain meds. Medications: Reviewed: Yes Vitals/I&O/Wt Last Vital Signs Temp 97.9 F 06/14/19 04:00 Pulse 79 06/14/19 04:00 Resp 20 H 06/14/19 04:00 BP 184/108 06/14/19 04:00 Pulse Ox 94 06/14/19 04:00 06/13/19 06/13/19 06/14/19 14:59 22:59 06:59 Intake Total 730 / 730 500 / 1230 Balance 730 / 730 500 / 1230 Weight last 48 hrs Weight 84.822 kg Weight 89.386 kg Weight 87.317 kg Weight 90.718 kg Physical Exam Narrative: EXAM NARRATIVE: comfortable, nard Const: GENERAL APPEARANCE: cooperative, comfortable and well kempt NUTRITIONAL APPEARANCE: overweight ORIENTATION/CONSCIOUSNESS: Yes awake, Yes oriented to person, Yes oriented to place and Yes oriented to time HENMT: COMMON NORMALS: normocephalic HEAD & SCALP: normocephalic Neck/C-Spine: COMMON NORMALS: full ROM and no JVD Resp: COMMON NORMALS: normal respiratory effort, no use of accessory muscles and clear to auscultation bilaterally AUSCULTATION: clear to auscultation bilaterally Cardio: COMMON NORMALS: no JVD, regular rate, regular rhythm, S1 normal heart sound and S2 normal heart sound RATE: regular rate RHYTHM: regular rhythm HEART SOUNDS: S1 normal, S2 normal and no murmurs GI: COMMON NORMALS: normal to inspection, nondistended, normoactive bowel sounds, soft to palpation, non-tender and no hepatosplenomegaly AUSCULTATION: Yes normoactive bowel sounds PALPATION: Yes soft and Yes no hepatosplenomegaly Extremity: NARRATIVE EXTREMITY EXAM: rt bka, left foot bandaged Neuro: SENSORIUM/ORIENTATION: Yes oriented to person, Yes oriented to place and Yes oriented to time Psych: APPEARANCE: Yes well kempt Data Micro: Micro: Microbiology 06/12/19 21:22 Blood Culture - Pr eliminary Blood NEGATIVE TO ASTRID E 06/12/19 21:18 Blood Culture - Pr eliminary Blood NEGATIVE TO ASTRID E A&P Additional A&P Information 1. esrd- hd in am 2. anemia- epo. high iron sat 3. htn- 4. monitor phos 5. OM- vanco by levels. keep trough under 19 6. DM control Attestations Medical Necessity Statement*: dm w/ OM -iv abx Time Spent in Patient Care: 16 - 35 minutes Coding Level of Care Code Acute Sales Development Representative for Angel Winn
--- NOTE | 2019-06-14 07:25 | PC.NURSE ---
Patient refused to let staff take his Vitals
--- NOTE | 2019-06-14 08:08 | P.CONIM_ITS ---
Providers/Reason For Consult Consulting Physican/Specialty*: Dr. Pollack Reason for Consult*: Chronic left heel ulcer Attending Physician: Selin Tracey MD History of Present Illness History of Present Illness Neel Austin is a 68 year old diabetic male with chronic nonhealing wound left heel exposed to tendon and bone. Patient also has history of right below-knee amputation approximately 3 years ago. Left second toe amputation approximately 5 years ago. He states he was recently hospitalized at [facility] where he received an MRI confirming osteomyelitis at his left heel. He has been receiving antibiotics since April 2019. Patient reports pain, drainage and foul odor from his left heel wound. Of note patient has end-stage renal failure dialysis Thursday and Thursday, congestive heart failure, hypertension, COPD. He was admitted to [facility] through emergency department for altered mental status his found him on the floor. Review of Systems Const: Denies: fever, chills or change in appetite Eyes: Denies: eye discharge Card: Reports: leg pain with exertion; Denies: chest pain or palpitations GI: Reports: diarrhea; Denies: nausea Musc: Reports: extremity pain, limited range of motion and deformity Skin/Breast: Reports: sores (Left heel ulcer), changes in skin color, dry skin and nail changes Neuro: Reports: numbness in extremities, changes in sensation and difficulty walking Psych: Reports: homicidal ideation Meds/Allergies Home Medications and Allergies Home Medications Medication Instructions Recorded Confirmed Type amlodipine 10 mg PO DAILY 06/12/19 06/12/19 History aspirin [Adult Low Dose Aspirin] 81 mg PO DAILY 06/12/19 06/12/19 History clopidogrel 75 mg PO DAILY 06/12/19 06/12/19 History isosorbide mononitrate 120 mg PO DAILY 06/12/19 06/12/19 History levofloxacin 750 mg PO DAILY 06/12/19 06/12/19 History naloxone 4 mg INTRANASAL UNK 06/12/19 06/12/19 History pravastatin 80 mg PO BEDTIME 06/12/19 06/12/19 History sevelamer HCl 800 mg PO TID 06/12/19 06/12/19 History tramadol 50 mg PO Q4H PRN 06/12/19 06/12/19 History Allergies Allergy/AdvReac Type Severity Reaction Status Date / Time No Known Allergies Allergy Verified 06/12/19 21:29 Current Medications Current Medications Generic Name Dose Route Start Last Admin Trade Name Freq PRN Reason Stop Dose Admin Amlodipine Besylate 10 mg 06/13/19 09:00 06/13/19 09:01 Norvasc PO 10 mg DAILY MONSTER Administration Aspirin 81 mg 06/13/19 09:00 06/13/19 09:01 Aspirin Ec PO 81 mg DAILY MONSTER Administration Atorvastatin Calcium 20 mg 06/13/19 00:15 06/13/19 22:41 Lipitor PO 20 mg BEDTIME MONSTER Administration Clopidogrel Bisulfate 75 mg 06/13/19 09:00 06/13/19 09:01 Plavix PO 75 mg DAILY MONSTER Administration Heparin Sodium (Beef Lung) 5,000 unit 06/13/19 00:15 06/13/19 22:43 Heparin SUBCUT 5,000 unit Q12H MONSTER Administration Piperacillin Sod/Tazobactam 50 mls @ 12.5 mls/hr 06/13/19 21:00 06/13/19 22:40 Sod 3.375 gm/ Sodium Chloride IV 12.5 mls/hr Q12H MONSTER Administration Protocol Vancomycin HCl 1,000 mg/ 250 mls @ 250 mls/hr 06/13/19 14:15 06/13/19 17:00 Sodium Chloride IV Infused QMWF MONSTER Infusion Protocol Insulin Aspart 0 unit 06/13/19 21:00 06/13/19 22:50 Novolog SUBCUT Not Given BEDTIME MONSTER Protocol Insulin Aspart 0 unit 06/13/19 18:00 06/13/19 21:21 Novolog SUBCUT Not Given TIDWM MONSTER Protocol Isosorbide Mononitrate 120 mg 06/13/19 09:00 06/13/19 09:01 Ismo PO 120 mg DAILY MONSTER Administration Sevelamer Carbonate 800 mg 06/13/19 09:00 06/13/19 22:40 Renvela PO 800 mg TID MONSTER Administration Tramadol HCl 50 mg 06/13/19 23:42 06/14/19 04:28 Ultram PO 50 mg Q4H PRN Administration MODERATE PAIN PFSH Acute PFSH: Statuses (acute, chronic, etc) shown below reflect problem list status as previously entered and may not be historically accurate Medical History (Updated 06/14/19 @ 08:42 by Wally Lyle DPM) CAD (coronary artery disease) (Chronic) CHF (congestive heart failure) (Chronic) CVA (cerebral vascular accident) (Acute) Diabetes (Chronic) Gout (Acute) HTN (hypertension) (Chronic) Hyperkalemia (Acute) Myocardial infarction (Acute) Osteomyelitis (Chronic) Pneumonia (Acute) Renal failure (Chronic) Sickle cell disease (Acute) Surgical History Hx of right BKA (Acute) Social History Smoking and tobacco status: never smoked Vitals/I&O/Wt Last Vital Signs Temp 97.9 F 06/14/19 04:00 Pulse 79 06/14/19 04:00 Resp 20 H 06/14/19 04:00 BP 184/108 06/14/19 04:00 Pulse Ox 94 06/14/19 04:00 06/13/19 06/14/19 06/14/19 22:59 06:59 14:59 Intake Total 730 / 730 500 / 1230 Balance 730 / 730 500 / 1230 Weight last 48 hrs Weight 187 lb Weight 197 lb 1 oz Weight 192 lb 8 oz Weight 200 lb Physical Exam Narrative: EXAM NARRATIVE: GENERAL: Patient is alert and oriented ?3 and in no acute distress. The following is a focused left lower extremity exam. VASCULAR: Dorsalis pedis and posterior tibial arteries nonpalpable.. Faintly palpable popliteal pulse left Capillary refill time less than 5 seconds to the distal hallux bilaterally. Calf is supple and nontender proximally and distally. Decreased pedal hair growth left lower extremity. NEUROLOGICAL: Protective sensation intact 0/10 sites, tested with Eldora Korey carl monofilament to bilateral feet. DERMATOLOGICAL: Full-thickness wound exposed to Achilles tendon and bone posterior calcaneus left lower extremity. Epithelialized wound margin no periwound erythema or proximal lymphangitic streaking at this time. Mild purulence with malodor. Lower extremity integument is diffusely dry, thin and atrophic. Dystrophic toenails 1, 3, 4 and 5 left foot. MUSCULOSKELETAL: Tenderness to palpation at the left posterior heel wound. Status post right below-knee amputation. Status post left second toe amputation. Remaining lesser toes have digital contractures with sagittal plane dominance. Ankle joint dorsiflexion to neutral left. 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 Had a dennys conversation with the patient regarding his left heel wound which has been nonhealing since April. Discussed his arterial studies concerning for monophasic waveforms at left lower extremity popliteal artery and posterior tibial artery and RAFAEL of 0.7 consistent with moderate peripheral arterial disease. Discussed limb salvage efforts which would require partial calcanectomy, surgical debridement of Achilles tendon and wound VAC application, with bone biopsy for culture to guide IV antibiotic therapy long-term. Patient is very [id number] about the situation. States he does not wish to pursue any limb salvage efforts. He does not wish to prolong the process any further. He would like to avoid any unnecessary hospitalization, clinical visits or further limb salvage treatment. He is requesting a left below-knee amputation. He states that his right below-knee amputation has been a durable amputation and has served him well and he would like the left to match. 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
[2019-06-14] MEDS: isosorbide mononitrate 20 mg Tablet 120 MG PO (08:27)
[2019-06-14] MEDS: sevelamer 800 mg Tablet PO ×3 (08:27→20:48)
[2019-06-14] MEDS: aspirin 81 mg EC Tablet PO (08:27)
[2019-06-14] MEDS: piperacillin-tazobactam 3.375 GM in sodium chloride 0.9% (plus) 50 ML IV ×2 (08:28→20:49)
[2019-06-14] MEDS: clopidogrel 75 mg Tablet PO (08:28)
[2019-06-14] MEDS: amlodipine 10 mg Tablet PO (08:28)
[2019-06-14 09:43] LABS: Glucose Point of Care 98 mg/dL (70-110)
[2019-06-14 11:08] VITALS: BP 140/68; PULSE 62; RESP 18; TEMP 36.9; O2SAT 98
[2019-06-14 11:23] LABS: Glucose Point of Care 114 mg/dL (70-110)
[2019-06-14 15:00] VITALS: BP 165/82; PULSE 81; RESP 18; TEMP 36.6; O2SAT 94
--- NOTE | 2019-06-14 15:07 | PC.CHAP ---
Pastoral Care Encounter/Spiritual Assessment Type of Contact [] Declined behavioral health consultant visit [] Patient/Family/Request visit [] Outpatient visits Pastoral Care Encounter/Spiritual Assessment Type of Contact [] Declined behavioral health consultant visit [] Patient/Family/Request visit [] Outpatient visit [x] Follow-up visit [] Physician referral [] Code/Alert [] Routine visit [] Staff referral [] Actively dying [] Patient sleeping [] Family support [] [] Out of room [] Palliative care [] [] Receiving care in room [] Pre-surgical visit [] Trauma [] Long length of stay [] ICU visit [] Other: Relational/Emotional Strength [] Patient feels connected with others/family/visitors/staff [] Distress [] Loneliness/isolation [] Abandonment Spirituality of Patient [] Person of Polina [] Attends Restorationism of their Polina [] Believes in Prayer [] Reads Bible or Anabaptist materials [] There are Spiritual issues to be addressed Ross Lift Operator Interventions [] Prayer [] Active listening [] Non-anxious presence [] Spiritual/emotional support [] Crisis/trauma care [] Spiritual counseling [] Bereavement support [] Provided bereavement packet [] Provided Bible/devotional materials [] Provided toy/stuffed animal, coloring book to patient or family member [] Completed spiritual assessment [] Provided Communion [] Anointing/[place] [] Salvation [] Other: Impact on Illness or Injury [] Angry [] Fearful [] Anxious [] Often cries [] Exhaustion [] Unable to work [] Unable to attend congregational [] Unable to walk/stand [] Unable to read [] Unable to drive [] Unable to eat/drink [] Unable to sleep [] Unable to be with family [] Other: Summary patient asleep needs follow up [place] Time spent with patient x[x] Follow-up visit [] Physician referral [] Code/Alert [] Routine visit [] Staff referral [] Actively dying [] Patient sleeping [] Family support [] [] Out of room [] Palliative care [] [] Receiving care in room [] Pre-surgical visit [] Trauma [] Long length of stay [] ICU visit [] Other: Relational/Emotional Strength [] Patient feels connected with others/family/visitors/staff [] Distress [] Loneliness/isolation [] Abandonment Spirituality of Patient [] Person of Polina [] Attends Restorationism of their [place]ina [] Believes in Prayer [] Reads Bible or Anabaptist materials [] There are Spiritual issues to be addressed Ross Lift Operator Interventions [] Prayer [] Active listening [] Non-anxious presence [] Spiritual/emotional support [] Crisis/trauma care [] Spiritual counseling [] Bereavement support [] Provided bereavement packet [] Provided Bible/devotional materials [] Provided toy/stuffed animal, coloring book to patient or family member [] Completed spiritual assessment [] Provided Communion [] Anointing/[place] [] Salvation [] Other: Impact on Illness or Injury [] Angry [] Fearful [] Anxious [] Often cries [] Exhaustion [] Unable to work [] Unable to attend congregational [] Unable to walk/stand [] Unable to read [] Unable to drive [] Unable to eat/drink [] Unable to sleep [] Unable to be with family [] Other: Summary Time spent with patient
[2019-06-14 16:32] LABS: Glucose Point of Care 144 mg/dL (70-110)
--- NOTE | 2019-06-14 17:27 | P.CONIM_ITS ---
Providers/Reason For Consult Consulting Physican/Specialty*: Dr. Tracey Reason for Consult*: Nonhealing left calcaneal ulcer with peripheral vascular disease and end-stage renal disease on hemodialysis Attending Physician: Selin Tracey MD History of Present Illness History of Present Illness Neel Austin is a 68 year old male with end-stage renal disease on hemodialysis Thursday and Thursday. He has a nonhealing left calcaneal ulcer for over 1 year with previous documentation for osteomyelitis. This has failed to hear by medical management. He has requested below-knee amputation. He does have peripheral vascular disease with his last RAFAEL being noted at 0.6. His other history which is significant includes diabetes mellitus, COPD, hypertension, congestive heart failure, and prior right below-knee amputation. He was initially felt to have been presented in sepsis with altered mental status was placed on vancomycin and Zosyn. Initially podiatric medicine was consulted to consider amputation, they requested that I be consulted. Review of Systems Const: Reports: fever; Denies: chills Card: Denies: chest pain or palpitations Resp: Denies: shortness of breath GI: Denies: abdominal pain Neuro: Denies: headache Psych: Denies: anxiety or depression Meds/Allergies Home Medications and Allergies Home Medications Medication Instructions Recorded Confirmed Type amlodipine 10 mg PO DAILY 06/12/19 06/12/19 History aspirin [Adult Low Dose Aspirin] 81 mg PO DAILY 06/12/19 06/12/19 History clopidogrel 75 mg PO DAILY 06/12/19 06/12/19 History isosorbide mononitrate 120 mg PO DAILY 06/12/19 06/12/19 History levofloxacin 750 mg PO DAILY 06/12/19 06/12/19 History naloxone 4 mg INTRANASAL UNK 06/12/19 06/12/19 History pravastatin 80 mg PO BEDTIME 06/12/19 06/12/19 History sevelamer HCl 800 mg PO TID 06/12/19 06/12/19 History tramadol 50 mg PO Q4H PRN 06/12/19 06/12/19 History Allergies Allergy/AdvReac Type Severity Reaction Status Date / Time No Known Allergies Allergy Verified 06/12/19 21:29 Current Medications Current Medications Generic Name Dose Route Start Last Admin Trade Name Freq PRN Reason Stop Dose Admin Amlodipine Besylate 10 mg 06/13/19 09:00 06/14/19 08:28 Norvasc PO 10 mg DAILY MONSTER Administration Aspirin 81 mg 06/13/19 09:00 06/14/19 08:27 Aspirin Ec PO 81 mg DAILY MONSTER Administration Atorvastatin Calcium 20 mg 06/13/19 00:15 06/13/19 22:41 Lipitor PO 20 mg BEDTIME MONSTER Administration Clopidogrel Bisulfate 75 mg 06/13/19 09:00 06/14/19 08:28 Plavix PO 75 mg DAILY MONSTER Administration Heparin Sodium (Beef Lung) 5,000 unit 06/13/19 00:15 06/14/19 15:59 Heparin SUBCUT Not Given Q12H MONSTER Piperacillin Sod/Tazobactam 50 mls @ 12.5 mls/hr 06/13/19 21:00 06/14/19 08:28 Sod 3.375 gm/ Sodium Chloride IV 12.5 mls/hr Q12H MONSTER Administration Protocol Vancomycin HCl 1,000 mg/ 250 mls @ 250 mls/hr 06/13/19 14:15 06/13/19 17:00 Sodium Chloride IV Infused QMWF MONSTER Infusion Protocol Insulin Aspart 0 unit 06/13/19 21:00 06/13/19 22:50 Novolog SUBCUT Not Given BEDTIME MONSTER Protocol Insulin Aspart 0 unit 06/13/19 18:00 06/14/19 12:08 Novolog SUBCUT Not Given TIDWM [facility] Protocol Isosorbide Mononitrate 120 mg 06/13/19 09:00 06/14/19 08:27 Ismo PO 120 mg DAILY MONSTER Administration Sevelamer Carbonate 800 mg 06/13/19 09:00 06/14/19 15:57 Renvela PO 800 mg TID MONSTER Administration Tramadol HCl 50 mg 06/13/19 23:42 06/14/19 04:28 Ultram PO 50 mg Q4H PRN Administration MODERATE PAIN PFSH Acute PFSH: Statuses (acute, chronic, etc) shown below reflect problem list status as previously entered and may not be historically accurate Social History Smoking and tobacco status: never smoked Vitals/I&O/Wt Last Vital Signs Temp 97.9 F 06/14/19 15:00 Pulse 81 06/14/19 15:00 Resp 18 06/14/19 15:00 BP 165/82 06/14/19 15:00 Pulse Ox 94 06/14/19 15:00 06/14/19 06/14/19 06/14/19 06:59 14:59 22:59 Intake Total 550 / 1280 480 / 480 Balance 550 / 1280 480 / 480 Weight last 48 hrs Weight 187 lb Weight 197 lb 1 oz Weight 192 lb 8 oz Weight 200 lb Physical Exam Const: COMMON NORMALS: no apparent distress and average body habitus GENERAL APPEARANCE: cooperative, comfortable and well developed ORIENTATION/CONSCIOUSNESS: Yes awake, Yes oriented to person, Yes oriented to place and Yes oriented to time HENMT: COMMON NORMALS: normocephalic HEAD & SCALP: normal to inspection and normocephalic Neck/C-Spine: COMMON NORMALS: negative for full ROM GENERAL: No JVD Chest: COMMONS NORMALS: negative for inspection of chest normal (Prior sternotomy with CABG and subsequent localized breakdown requiring pectoral flap) Resp: COMMON NORMALS: normal respiratory effort, no retractions, no use of accessory muscles and clear to auscultation bilaterally EFFORT & INSPECTION: Yes symmetric chest movement AUSCULTATION: clear to auscultation bilaterally Cardio: COMMON NORMALS: regular rate and regular rhythm RATE: regular rate RHYTHM: regular rhythm HEART SOUNDS: murmur (Left parasternal border 3/6) Extremity: OTHER: Left foot and ankle are wrapped and had been previously recorded to have gangrenous changes with localized erythema and nonhealing calcaneal ulcer He also has some eschared regions in the mid leg region, though I do feel there is a line available to consider left BKA. Right lower extremity has well-healed BKA Neuro: SENSORIUM/ORIENTATION: Yes oriented to person, Yes oriented to place and Yes oriented to time Data Micro: Micro: Microbiology 06/13/19 14:15 MRSA Culture - Fin al Nose 06/12/19 21:22 Blood Culture - Pr eliminary Blood NEGATIVE TO ASTRID E 06/12/19 21:18 Blood Culture - Pr eliminary Blood NEGATIVE TO ASTRID E A&P Assessment and plan (1) Osteomyelitis: 68-year-old gentleman with multiple medical problem including end-stage renal disease on hemodialysis, osteomyelitis of the left calcaneus, diabetes mellitus, peripheral vascular disease, CHF, and prior right BKA. Left BKA has been recommended due to nonhealing calcaneal ulcer for over 1 year. Rationale for this was carefully discussed with Mr. Austin. Increased risk for wound complications and failure related to severe peripheral vascular disease, end- stage renal disease requiring hemodialysis, active ulceration, and diabetes mellitus were frankly discussed. He states understanding and wishes to proceed with plans for surgery. Status: Acute Code(s): M86.9 - Osteomyelitis, unspecified Consult Attestations Medical Necessity Statement: Nonhealing left calcaneal ulcer with severe peripheral vascular disease and diabetes mellitus Time Spent in Patient Care: Greater than 35 minutes Coding Level of Care Code Acute Hand Spring Former for Chg Fwd History Detailed Exam Detailed Medical Decision Making Moderate Complexity Diagnoses Osteomyelitis M86.9 Time Spent (min) 45
--- NOTE | 2019-06-14 17:41 | XR_ITS ---
WS: [id number] PORTABLE CHEST HISTORY: preop left bka COMPARISON: 07/19/2018 RIGHT dialysis catheter with tips overlying the RIGHT heart. Mild interstitial thickening throughout both lungs. Small LEFT pleural effusion similar to the prior study. Pulmonary vasculature is very minimally prominent. Cardiac size: Moderately enlarged cardiac silhouette. Mediastinum/Aorta: Normal mediastinum. No osseous abnormality seen. XR/XR chest 1V portable [id number] IMPRESSION: 1. Small LEFT pleural effusion and mild cardiomegaly. Similar to the prior gerhard dy. 2. Mild interstitial edema. Slightly progressed since 07/19/2018.
--- NOTE | 2019-06-14 18:09 | PM.PN ---
Subjective Subjective: Interval history: Acute events overnight. Patient was seen by audio visual aids director. Option of salvage and further management by way of debridement wound VAC antibiotics based on bone biopsy cultures etc. were discussed with the patient, however he is more keen on undergoing a left-sided below-knee amputation as he feels this will be better for his quality of life overall. Surgery was consulted for further assessment for BKA, hyper is recommended to also consult vascular surgery as patient is known to have peripheral artery disease. Medications: Reviewed: Yes Vitals/I&O/Wt Last Vital Signs Temp 97.9 F 06/14/19 15:00 Pulse 81 06/14/19 15:00 Resp 18 06/14/19 15:00 BP 165/82 06/14/19 15:00 Pulse Ox 94 06/14/19 15:00 06/14/19 06/14/19 06/14/19 06:59 14:59 22:59 Intake Total 550 / 1280 480 / 480 Output Total 375 / 375 Balance 550 / 1280 480 / 480 -375 / 105 Weight last 48 hrs Weight 84.822 kg Weight 89.386 kg Weight 87.317 kg Weight 90.718 kg Physical Exam Narrative: EXAM NARRATIVE: General: No acute distress, AO x3 HEENT: PERRLA, pupils bilaterally equal and reactive Chest: Normal vesicular breath sounds, no added sounds, equal good air entry bilaterally CVS: S1-S2 regular, no murmurs, no tachycardia, no gallops, no rubs Abdomen: Soft, nontender, no organomegaly, bowel sounds present Neuro: No focal deficits Ext: right BKA, left heel bandaged, exam per podiatry note. Not opened for examination by me today. Data Micro: Micro: Microbiology 06/13/19 14:15 MRSA Culture - Fin al Nose 06/12/19 21:22 Blood Culture - Pr eliminary Blood NEGATIVE TO ASTRID E 06/12/19 21:18 Blood Culture - Pr eliminary Blood NEGATIVE TO ASTRID E A&P Assessment and plan (1) Osteomyelitis: Status: Acute Code(s): M86.9 - Osteomyelitis, unspecified (2) Renal failure: Status: Acute Code(s): N19 - Unspecified kidney failure (3) Sepsis: Status: Acute Code(s): A41.9 - Sepsis, unspecified organism (4) Diabetes: Status: Chronic Code(s): E11.9 - Type 2 diabetes mellitus without complications (5) CHF (congestive heart failure): Status: Chronic Code(s): I50.9 - Heart failure, unspecified (6) CAD (coronary artery disease): Status: Chronic Code(s): I25.10 - Atherosclerotic heart disease of [place] coronary artery without angina pectoris (7) HTN (hypertension): Status: Chronic Code(s): I10 - Essential (primary) hypertension Additional A&P Information Altered mental status improved today, patient back at baseline. Doubt that chronic osteomyelitis (>1 year) was contributing to the picture of sepsis. More likely it was related to uremia and patient's mental status is currently back to baseline after undergoing dialysis earlier today. Chronic left heel osteomyelitis. With exposure of tendons and bones. Extensive discussion between patient and podiatry team today. Options of limb salvage with I&D wound VAC placement and culture directed antibiotic prolonged treatment was discussed. At this time patient states that he has been undergoing antibiotic treatment for about a year now with no significant improvement, and in fact worsening in the size of the ulcer. According to him this impacts his quality of life tremendously and he would prefer to undergo a below-knee amputation rather than attempt to salvage the limb. For this reason surgery service was consulted today for possible BKA. It was recommended to get vascular surgery on board for the amputation in view of known peripheral artery disease. #ESRD on hemodialysis Thursday ?Dialysis by nephrology. #Hypertension ?Continue with home medication #DMII fingersticks are currently well controlled. HbA1c in the morning. - ISS #Continue with rest of chronic home medications # DVT ppx: Heparing subq Attestations Medical Necessity Statement*: Admitted for evaluation of left heel osteomyelitis and possible BKA Coding Level of Care Code Acute Channel Worker for [facility] Fwd Diagnoses Osteomyelitis M86.9 Renal failure N19 Sepsis A41.9 Diabetes E11.9 CHF (congestive heart failure) I50.9 CAD (coronary artery disease) I25.10 HTN (hypertension) I10
[2019-06-14 20:00] VITALS: BP 146/72; PULSE 78; RESP 20; TEMP 36.3; O2SAT 92
[2019-06-14] MEDS: atorvastatin 40 mg Tablet 20 MG PO (20:48)
[2019-06-14 21:37] LABS: Glucose Point of Care 198 mg/dL (70-110)
[2019-06-15] VITALS (20 sets, daily range): BP systolic 112–201; BP diastolic 56–95; PULSE 65–103; RESP 15–24; TEMP 36.3–37.1; O2SAT 91–99
[2019-06-15 06:10] LABS: Basophils # 0.1 10^3/uL (0.0-0.1); Basophils % 0.5 %; Eosinophils # 0.2 10^3/uL (0.0-0.8); Eosinophils % 1.4 %; Hematocrit 33.5 % (42.0-52.0); Hemoglobin 10.2 g/dL (11.7-16.6); Lymphocytes # 0.5 10^3/uL (0.8-4.8); Lymphocytes % 4.4 %; Mean Corpuscular HGB Conc 30.4 g/dL (30.0-36.0); Mean Corpuscular Hemoglobin 28.9 pg (28.0-34.0); Mean Corpuscular Volume 94.9 fL (80-94); Mean Platelet Volume 10.4 fL (7.4-10.4); Monocytes # 1.1 10^3/uL (0.2-0.9); Monocytes % 10.6 %; Neutrophils # 8.7 10^3/uL (1.8-7.7); Neutrophils % 82.4 %; Nucleated Red Blood Cells % 0.2 %; Platelet Count 201 10^3/cmm (130-400); Red Blood Count 3.53 10^6/uL (4.1-5.3); Red Cell Distribution Width 14.5 % (12.1-15.1); White Blood Count 10.6 10^3/uL (4.0-10.0)
[2019-06-15 06:34] LABS: Alanine Aminotransferase 289 U/L (0-41); Albumin Level 3.5 g/dL (3.5-5.2); Alkaline Phosphatase 158 IU/L (40-130); Anion Gap 24.5 (5-19); Aspartate Amino Transferase 123 U/L (0-40); Blood Urea Nitrogen 50 mg/dL (8-23); Calcium 9.9 mg/Dl (8.8-10.2); Carbon Dioxide 22 mmol/L (22-29); Chloride 94 mmol/L (98-107); Globulin 3.8 g/dL (1.3-4.6); Glomerular Filtration Rate 8.2 mL/min (90-130); Glucose 152 mg/dL (74-106); Magnesium 2.4 mg/dL (1.7-2.3); Potassium 4.5 mmol/L (3.5-5.1); Sodium 136 mmol/L (136-145); Total Bilirubin 0.6 mg/dL (0.15-1.2); Total Protein 7.3 g/dL (6.6-8.7); Vancomycin Random 13.9 ug/mL (20.0-40.0)
--- NOTE | 2019-06-15 06:44 | P.PN_ITS ---
Subjective Subjective: Interval history: Mr. Austin was sleeping on rounds this morning. Nursing service reports no concerns overnight. Vitals/I&O/Wt Last Vital Signs Temp 97.8 F 06/15/19 03:50 Pulse 71 06/15/19 03:50 Resp 18 06/15/19 03:50 BP 186/95 06/15/19 03:50 Pulse Ox 92 06/15/19 03:50 06/14/19 06/14/19 06/15/19 14:59 22:59 06:59 Intake Total 530 / 530 610 / 1140 50 / 1190 Output Total 375 / 375 0 / 375 Balance 530 / 530 235 / 765 50 / 815 Weight last 48 hrs Weight 190 lb 3 oz Weight 187 lb Physical Exam Narrative: EXAM NARRATIVE: Left foot remains with dressing in place. The left leg below the knee remains warm, though it is now that he has substantial peripheral vascular disease. 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 I have discussed this previously with Mr. Austin who is eager to have this performed due to the chronic nature of this left calcaneal ulcer. Potential for wound complications were frankly discussed. He stated understanding. 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
[2019-06-15 06:46] LABS: Glucose Point of Care 180 mg/dL (70-110)
--- NOTE | 2019-06-15 06:55 | PM.PN ---
Subjective Subjective: Interval history: foot pain, confusion. for Left BKA today Vitals/I&O/Wt Last Vital Signs Temp 97.8 F 06/15/19 03:50 Pulse 71 06/15/19 03:50 Resp 18 06/15/19 03:50 BP 186/95 06/15/19 03:50 Pulse Ox 92 06/15/19 03:50 06/14/19 06/14/19 06/15/19 14:59 22:59 06:59 Intake Total 530 / 530 610 / 1140 50 / 1190 Output Total 375 / 375 0 / 375 Balance 530 / 530 235 / 765 50 / 815 Weight last 48 hrs Weight 86.268 kg Weight 84.822 kg Physical Exam Narrative: EXAM NARRATIVE: comfortable in bed, nard vs noted- bp elevated heent- nc/at, eomi neck supple, no jvp lungs- cta b/l heart reg, +YOSHI abd soft nt, nd, +BS ext left foot bandaged neuro- a,a,o x 1, moves all ext dialysis access is Rt IJ PC no rashes mood normal Data Micro: Micro: Microbiology 06/13/19 14:15 MRSA Culture - Fin al Nose A&P Additional A&P Information 1. left foot om abx renal dose -redose vanco 1 gm today -for BKA -dm control 2. phos binders 3. anemia 4. ESRD- hd today- timing to be worked out w/ Dr. Goode 3.5 hrs, 2k, remove 2l Attestations Medical Necessity Statement*: per hospitalist and surgery. 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
[2019-06-15 06:57] LABS: Estmated Average Glucose 148; Hemoglobin A1C 6.8 % (4.0-6.0)
[2019-06-15] MEDS: isosorbide mononitrate 20 mg Tablet 120 MG PO (08:45)
[2019-06-15] MEDS: piperacillin-tazobactam 3.375 GM in sodium chloride 0.9% (plus) 50 ML IV (08:46)
[2019-06-15] MEDS: amlodipine 10 mg Tablet PO (08:46)
--- NOTE | 2019-06-15 08:57 | P.PN_ITS ---
Subjective Subjective: Interval history: Planned for L BKA today. No acute overnight events Medications: Reviewed: Yes Vitals/I&O/Wt Last Vital Signs Temp 97.6 F 06/15/19 08:00 Pulse 80 06/15/19 08:00 Resp 20 H 06/15/19 08:00 BP 173/89 06/15/19 08:00 Pulse Ox 91 06/15/19 08:00 06/14/19 06/15/19 06/15/19 22:59 06:59 14:59 Intake Total 610 / 1140 50 / 1190 Output Total 375 / 375 0 / 375 Balance 235 / 765 50 / 815 Weight last 48 hrs Weight 86.268 kg Weight 84.822 kg Physical Exam Narrative: EXAM NARRATIVE: General: No acute distress HEENT: PERRLA, pupils bilaterally equal and reactive Chest: Normal vesicular breath sounds, no added sounds, equal good air entry bilaterally CVS: S1-S2 regular, no murmurs, no tachycardia, no gallops, no rubs Abdomen: Soft, nontender, no organomegaly, bowel sounds present Neuro: No focal deficits Ext: right BKA, left heel bandaged Data Micro: Micro: Microbiology 06/13/19 14:15 MRSA Culture - Fin al Nose A&P Assessment and plan (1) Osteomyelitis: Status: Acute Code(s): M86.9 - Osteomyelitis, unspecified (2) Renal failure: Status: Acute Code(s): N19 - Unspecified kidney failure (3) Sepsis: Status: Acute Code(s): A41.9 - Sepsis, unspecified organism (4) Diabetes: Status: Chronic Code(s): E11.9 - Type 2 diabetes mellitus without complications (5) CHF (congestive heart failure): Status: Chronic Code(s): I50.9 - Heart failure, unspecified (6) CAD (coronary artery disease): Status: Chronic Code(s): I25.10 - Atherosclerotic heart disease of [place] coronary artery without angina pectoris (7) HTN (hypertension): Status: Chronic Code(s): I10 - Essential (primary) hypertension Additional A&P Information Altered mental status improved, patient back at baseline. Doubt that chronic osteomyelitis (>1 year) was contributing to the picture of metabolic encephalopathy. Chronic left heel osteomyelitis. With exposure of tendons and bones. Patient elected to proceed with left-sided BKA for better quality of life according to him. He declined attempts at limb salvage. He is planned for left BKA today. Continue antibiotics for now. #ESRD on hemodialysis Thursday ?Dialysis per nephrology. #Hypertension ?Continue with home medication #DMII fingersticks are currently well controlled. HbA1c in the morning. - ISS #Continue with rest of chronic home medications # DVT ppx: Heparing subq Attestations Medical Necessity Statement*: Left BKA today. 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
--- NOTE | 2019-06-15 09:37 | P.ANES_ITS ---
Pre-Anesthetic Assessment Pre-Anesthetic Assessment: Height/Weight: Height 1.83 m Weight 86.268 kg Temp Pulse Resp BP Pulse Ox 97.6 F 80 20 H 173/89 91 06/15/19 08:00 06/15/19 08:00 06/15/19 08:00 06/15/19 08:00 06/15/19 08:00 Preop Diagnosis: left nonhealing calcaneous ulcer Proposed Procedure: Operation Date: 06/15/19 11:30 Proposed Procedures p BKA (Below Knee Amputation)(Left) - Jonathan Goode MD Last intake: Intake Last Liquid Date 06/14/19 Last Liquid Time 23:00 Last Solid Date 06/14/19 Last Solid Time 20:00 Last Intake: 18:00 Exam: Pre-Anes Outpt Exam: alert and oriented x 3 Airway: Submandibular: WNL Cervical ROM: Other MP: 2 CV/HEM: CV/HEM: CAD, CHF and HTN Comments: s/p CABG : : Chronic renal failure Comments: dialysis x 2 years, dialyzed 06/13 Metabolic: Metabolic: DM Comments: rx'd x 50 years, normally 120-180 Neuropsych: Neuropsych: 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) Anesthetic Plan: ASA status: III Anesthesia: General Meds/Allergies Current Medications: Current Medications Generic Name Dose Route Start Last Admin Trade Name Marcela PRN Reason Stop Dose Admin Amlodipine Besylat e 10 mg 06/13/19 09:00 06/15/19 08:46 Norvasc PO 10 mg DAILY MONSTER Administration Aspirin 81 mg 06/13/19 09:00 06/15/19 08:51 Aspirin Ec PO Not Given DAILY MONSTER Atorvastatin Calci um 20 mg 06/13/19 00:15 06/14/19 20:48 Lipitor PO 20 mg BEDTIME MONSTER Administration Clopidogrel Bisulf ate 75 mg 06/13/19 09:00 06/14/19 08:28 Plavix PO 75 mg DAILY MONSTER Administration Heparin Sodium (Be ef Lung) 5,000 unit 06/13/19 00:15 06/14/19 15:59 Heparin SUBCUT Not Given Q12H MONSTER Piperacillin Sod/T azobactam 50 mls @ 12.5 mls /hr 06/13/19 21:00 06/15/19 08:46 Sod 3.375 gm/ So dium Chloride IV 12.5 mls/hr Q12H MONSTER Administration Protocol Vancomycin HCl 1,0 00 mg/ 250 mls @ 250 mls /hr 06/13/19 14:15 06/13/19 17:00 Sodium Chloride IV Infused QMWF MONSTER Infusion Protocol Insulin Aspart 0 unit 06/13/19 21:00 06/14/19 22:44 Novolog SUBCUT Not Given BEDTIME MONSTER Protocol Insulin Aspart 0 unit 06/13/19 18:00 06/15/19 08:05 Novolog SUBCUT Not Given TIDWM MONSTER Protocol Isosorbide Mononit rate 120 mg 06/13/19 09:00 06/15/19 08:45 Ismo PO 120 mg DAILY MONSTER Administration Sevelamer Carbonat e 800 mg 06/13/19 09:00 06/15/19 08:51 Renvela PO Not Given TID MONSTER Tramadol HCl 50 mg 06/13/19 23:42 06/14/19 04:28 Ultram PO 50 mg Q4H PRN Administration MODERATE PAIN PFSH Anesthesia PFSH: Social History Smoking and tobacco status: never smoked Data Anesthesia CBC & Chem 7: 06/15/19 05:25 06/15/19 05:25 Other Labs: Laboratory Results - last 48 hr 06/13/19 06/13/19 06/13/19 05:48 05:48 13:51 WBC RBC Hgb Hct MCV MCH MCHC RDW Plt Count MPV Neut % (Auto) Lymph % (Auto) [place] % (Auto) Eos % (Auto) Baso % (Auto) Neut # (Auto) Lymph # (Auto) [place] # (Auto) Eos # (Auto) Baso # (Auto) Nucleated RBC % (auto) Nucleated RBCs # ESR Sodium Potassium Chloride Carbon Dioxide Anion Gap BUN Creatinine GFR Calculation Glucose POC Glucose 78 Estimat Average Glucose Hemoglobin A1c Lactic Acid Calcium Phosphorus Magnesium Iron TIBC % Saturation Unsat Iron Binding Total Bilirubin AST ALT Alkaline Phosphatase Total Protein Albumin Globulin Random Vancomycin Hep Bs Antigen Non-reactive Hep B Core Total Ab Non-reactive Hepatitis C Antibody Non-reactive Blood Type Antibody Screen Crossmatch 06/13/19 06/13/19 06/13/19 14:24 14:24 15:45 WBC RBC Hgb Hct MCV MCH MCHC RDW Plt Count MPV Neut % (Auto) Lymph % (Auto) [place] % (Auto) Eos % (Auto) Baso % (Auto) Neut # (Auto) Lymph # (Auto) [place] # (Auto) Eos # (Auto) Baso # (Auto) Nucleated RBC % (auto) Nucleated RBCs # ESR 55 H Sodium Potassium Chloride Carbon Dioxide Anion Gap BUN Creatinine GFR Calculation Glucose POC Glucose Estimat Average Glucose Hemoglobin A1c Lactic Acid 3.2 H Calcium Phosphorus Magnesium Iron 106 TIBC 181 % Saturation 58.5 H Unsat Iron Binding 75 L Total Bilirubin AST ALT Alkaline Phosphatase Total Protein Albumin Globulin Random Vancomycin Hep Bs Antigen Hep B Core Total Ab Hepatitis C Antibody Blood Type Antibody Screen Crossmatch 06/13/19 06/14/19 06/14/19 22:17 02:36 02:36 WBC 7.8 RBC 3.41 L Hgb 9.9 L Hct 31.6 L MCV 92.7 MCH 29.0 MCHC 31.3 RDW 14.5 Plt Count 197 MPV 10.6 H Neut % (Auto) 82.8 Lymph % (Auto) 6.4 [place] % (Auto) 7.7 Eos % (Auto) 1.8 Baso % (Auto) 0.5 Neut # (Auto) 6.5 Lymph # (Auto) 0.5 L [place] # (Auto) 0.6 Eos # (Auto) 0.1 Baso # (Auto) 0.0 Nucleated RBC % (auto) 0 Nucleated RBCs # 0.0 ESR Sodium 135 L Potassium 4.5 Chloride 94 L Carbon Dioxide 25 Anion Gap 20.5 H BUN 31 H Creatinine 4.8 H GFR Calculation 12.1 L Glucose 80 POC Glucose 72 Estimat Average Glucose Hemoglobin A1c Lactic Acid Calcium 9.6 Phosphorus Magnesium Iron TIBC % Saturation Unsat Iron Binding Total Bilirubin 0.6 AST 467 H ALT 389 H Alkaline Phosphatase 162 H Total Protein 7.4 Albumin 3.7 Globulin 3.7 Random Vancomycin Hep Bs Antigen Hep B Core Total Ab Hepatitis C Antibody Blood Type Antibody Screen Crossmatch 06/14/19 06/14/19 06/14/19 03:23 06:35 09:41 WBC RBC Hgb Hct MCV MCH MCHC RDW Plt Count MPV Neut % (Auto) Lymph % (Auto) [place] % (Auto) Eos % (Auto) Baso % (Auto) Neut # (Auto) Lymph # (Auto) [place] # (Auto) Eos # (Auto) Baso # (Auto) Nucleated RBC % (auto) Nucleated RBCs # ESR Sodium Potassium Chloride Carbon Dioxide Anion Gap BUN Creatinine GFR Calculation Glucose POC Glucose 77 87 98 Estimat Average Glucose Hemoglobin A1c Lactic Acid Calcium Phosphorus Magnesium Iron TIBC % Saturation Unsat Iron Binding Total Bilirubin AST ALT Alkaline Phosphatase Total Protein Albumin Globulin Random Vancomycin Hep Bs Antigen Hep B Core Total Ab Hepatitis C Antibody Blood Type Antibody Screen Crossmatch 06/14/19 06/14/19 06/14/19 11:07 16:17 18:49 WBC RBC Hgb Hct MCV MCH MCHC RDW Plt Count MPV Neut % (Auto) Lymph % (Auto) [place] % (Auto) Eos % (Auto) Baso % (Auto) Neut # (Auto) Lymph # (Auto) [place] # (Auto) Eos # (Auto) Baso # (Auto) Nucleated RBC % (auto) Nucleated RBCs # ESR Sodium Potassium Chloride Carbon Dioxide Anion Gap BUN Creatinine GFR Calculation Glucose POC Glucose 114 144 Estimat Average Glucose Hemoglobin A1c Lactic Acid Calcium Phosphorus Magnesium Iron TIBC % Saturation Unsat Iron Binding Total Bilirubin AST ALT Alkaline Phosphatase Total Protein Albumin Globulin Random Vancomycin Hep Bs Antigen Hep B Core Total Ab Hepatitis C Antibody Blood Type A Negative Antibody Screen Negative Crossmatch See Detail 06/14/19 06/15/19 06/15/19 21:23 05:25 05:25 WBC 10.6 H RBC 3.53 L Hgb 10.2 L Hct 33.5 L MCV 94.9 H MCH 28.9 MCHC 30.4 RDW 14.5 Plt Count 201 MPV 10.4 Neut % (Auto) 82.4 Lymph % (Auto) 4.4 [place] % (Auto) 10.6 Eos % (Auto) 1.4 Baso % (Auto) 0.5 Neut # (Auto) 8.7 H Lymph # (Auto) 0.5 L [place] # (Auto) 1.1 H Eos # (Auto) 0.2 Baso # (Auto) 0.1 Nucleated RBC % (auto) 0.2 Nucleated RBCs # 0.0 ESR Sodium 136 Potassium 4.5 Chloride 94 L Carbon Dioxide 22 Anion Gap 24.5 H BUN 50 H Creatinine 6.7 H* GFR Calculation 8.2 L Glucose 152 H POC Glucose 198 Estimat Average Glucose Hemoglobin A1c Lactic Acid Calcium 9.9 Phosphorus 5.0 H Magnesium 2.4 H Iron TIBC % Saturation Unsat Iron Binding Total Bilirubin 0.6 AST 123 H ALT 289 H Alkaline Phosphatase 158 H Total Protein 7.3 Albumin 3.5 Globulin 3.8 Random Vancomycin 13.9 L Hep Bs Antigen Hep B Core Total Ab Hepatitis C Antibody Blood Type Antibody Screen Crossmatch 06/15/19 06/15/19 05:25 06:38 WBC RBC Hgb Hct MCV MCH MCHC RDW Plt Count MPV Neut % (Auto) Lymph % (Auto) [place] % (Auto) Eos % (Auto) Baso % (Auto) Neut # (Auto) Lymph # (Auto) [place] # (Auto) Eos # (Auto) Baso # (Auto) Nucleated RBC % (auto) Nucleated RBCs # ESR Sodium Potassium Chloride Carbon Dioxide Anion Gap BUN Creatinine GFR Calculation Glucose POC Glucose 180 Estimat Average Glucose 148 Hemoglobin A1c 6.8 H Lactic Acid Calcium Phosphorus Magnesium Iron TIBC % Saturation Unsat Iron Binding Total Bilirubin AST ALT Alkaline Phosphatase Total Protein Albumin Globulin Random Vancomycin Hep Bs Antigen Hep B Core Total Ab Hepatitis C Antibody Blood Type Antibody Screen Crossmatch Micro: Microbiology 06/13/19 14:15 MRSA Culture - Final Nose Cardiac Studies: No Data to Display
--- NOTE | 2019-06-15 10:48 | PC.SOCIAL ---
IMM Not Given Attempted to give page 2 of IMM, however patient is off the unit in surgery. SS to follow up.
[2019-06-15] MEDS: vancomycin 1,000 MG SDV 1000 MG IRRIGATION (12:16)
[2019-06-15] MEDS: HYDROcodone-acetaminophen 5-325 mg Tablet 1 TAB PO ×2 (13:46→22:02)
[2019-06-15] MEDS: morphine 4 mg/mL SDV 1 mL 2 MG IVP ×3 (13:46→22:46)
--- NOTE | 2019-06-15 13:50 | PC.NURSE ---
Pt arrived back to the floor at 1325. and daughter at bedside. LBKA dressing clean, dry, and intact. Covered with bulky justice dressing and brace. Hemovac in place. Pt requesting pain medication. Daughter requesting pt to receive home dose of ativan. Dr. Tracey made aware. PRN morphine and norco administered as ordered. Post op SpO2 86%. Placed on 2 LPM via NC. Sats above 92%.
[2019-06-15] MEDS: sevelamer 800 mg Tablet PO ×2 (14:17→22:01)
[2019-06-15 14:18] LABS: Vancomycin Trough 13.5 ug/mL (10-15)
--- NOTE | 2019-06-15 14:30 | PC.SOCIAL ---
IMM Page 2 of IMM explained to and signed by patient's family. Patient/family verbalize understanding. Initialed, dated, and timed and placed in chart. Copy provided to patient.
[2019-06-15 16:51] LABS: Glucose Point of Care 110 mg/dL (70-110)
--- NOTE | 2019-06-15 19:00 | PC.NURSE ---
Pt off unit in dialysis at this time.
--- NOTE | 2019-06-15 19:58 | P.OP_ITS ---
Operative Report Date of procedure: 06/15/19 Preop Diagnosis: left nonhealing calcaneous ulcer Post-op diagnosis: same Procedure Done: Left below-knee amputation Implants: Hemovac drain Specimens removed/disposition: Left below-knee amputation delivered to pathology department Pathology: other (Left below-knee amputation) Surgeon: Jonathan Goode Anesthesia: general Estimated blood loss (mL): 150 IV fluids (mL): 500 Complications: None Condition: stable Disposition: PACU Brief History: Pleasant 68-year-old gentleman with history of peripheral vascular disease and a prior history for right below-knee amputation. He has a nonhealing left calcaneal ulcer which is been present for at least 1 year and ac tually has necrosis of bone. Likelihood of healing is felt to be quite low and after discussions, he wishes for a left below-knee amputation. Details and risks of the procedure were carefully and frankly discussed. Appropriate consents have been reviewed and signed. Procedure: His entire left lower extremity was sterilely prepped and draped. Marking pen was utilized to determine our lines of transection to include a generous posterior flap. #10 scalpel blade was utilized to incise the skin circumferentially along the previously placed planned line of transection. Saphenous vein was controlled medially and secured prior to division. This was continued down to the tibia where periosteal elevator was utilized to strip periosteum proximally. This was done circumferentially. Next, transection of the tibia was performed utilizing powered saw. Anterior surface of the tibia was beveled utilizing saw and rasp Scalpel blade was utilized continue further transection of musculature and fascia down to the fibula, which was also isolated and periosteum elevated proximally. Again, powered saw was utilized to perform transection proximally. Amputation was then completed utilizing amputation knife. Areas of bleeding were controlled utilizing careful case of cautery or suture ligature. Remaining bulk of musculature on the posterior flap was beveled to allow for appropriate closure with elevation to the anterior transection line. Wound was then irrigated with antibiotic solution and hemostasis confirmed. A large Hemovac drain was placed and secured. Fascia was reapproximated with interrupted 2-0 Vicryl suture. Subcutaneous layer was reapproximated with running 3-0 Vicryl suture. Skin was then reapproximated utilizing 3-0 m onofilament suture in an interrupted in interrupted mattress fashion. Xeroform gauze was applied followed by appropriate padded dressings. Knee was placed in an immobilizer. Mr. Austin was awakened from anesthesia and extubated without difficulty and taken to the postoperative care unit.
--- NOTE | 2019-06-15 20:55 | PC.NURSE ---
Pt retrieved from dialysis at this time. Pt noted with increased confusion. Pt keeps asking who gave you the right to cut my leg off and give it to someone else? Call the highway patrol, you're going to lose your job! I'm not going home! You're going to group home! Continues with his confusion and outbursts once placed in room. O2 per n/c placed. Attempt made to reorient pt without success.
[2019-06-15 21:27] LABS: Glucose Point of Care 103 mg/dL (70-110)
[2019-06-15] MEDS: atorvastatin 40 mg Tablet 20 MG PO (22:03)
[2019-06-15] MEDS: vancomycin 1,000 MG in sodium chloride 0.9% 250 ML 250 MG IV (22:04)
[2019-06-16] VITALS (11 sets, daily range): BP systolic 118–144; BP diastolic 60–88; PULSE 68–88; RESP 17–24; TEMP 36.6–37.1; O2SAT 92–98
[2019-06-16] MEDS: morphine 4 mg/mL SDV 1 mL 2 MG IVP ×4 (01:25→14:19)
--- NOTE | 2019-06-16 02:15 | PC.PHAR ---
Renal dosing for Levaquin 750mg daily to 500 mg Q48H due to crcl of 11
[2019-06-16 06:44] LABS: Glucose Point of Care 97 mg/dL (70-110)
[2019-06-16] MEDS: amlodipine 10 mg Tablet PO (08:03)
[2019-06-16] MEDS: isosorbide mononitrate 20 mg Tablet 120 MG PO (08:03)
[2019-06-16] MEDS: levoFLOXacin 500 mg Tablet PO (08:03)
[2019-06-16] MEDS: aspirin 81 mg EC Tablet PO (08:03)
[2019-06-16] MEDS: HYDROcodone-acetaminophen 5-325 mg Tablet 1 TAB PO ×3 (08:04→22:20)
[2019-06-16] MEDS: sevelamer 800 mg Tablet PO ×3 (08:04→21:09)
--- NOTE | 2019-06-16 09:08 | P.PN_ITS ---
Subjective Subjective: Interval history: Postop day #1 status post left below-knee amputation Surgical dressings remain in place. Hemovac drain output, as reported by nurses, only 10 cc overnight Vitals/I&O/Wt Last Vital Signs Temp 98.7 F 06/16/19 07:48 Pulse 78 06/16/19 07:48 Resp 18 06/16/19 08:04 BP 144/88 06/16/19 07:48 Pulse Ox 95 06/16/19 07:48 06/15/19 06/16/19 06/16/19 22:59 06:59 14:59 Intake Total 730 / 730 240 / 240 Balance 730 / 580 240 / 240 Weight last 48 hrs Weight 184 lb 4 oz Weight 190 lb 3 oz Physical Exam Extremity: OTHER: Surgical dressings and splint remain in place on left BKA A&P Assessment and plan (1) Status post below-knee amputation of left lower extremity: I will plan to remove surgical dressings and splint this evening and remove the Hemovac drain as it has low output. Status: Acute Code(s): Z89.512 - Acquired absence of left leg below knee Attestations Medical Necessity Statement*: Nonhealing left calcaneal wound, postop day #1 status post left below-knee amputation. 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
--- NOTE | 2019-06-16 10:34 | P.PN_ITS ---
Subjective Subjective: Interval history: confused. s/p left bka- leg hurts. not eating well. no sob. Medications: Reviewed: Yes Vitals/I&O/Wt Last Vital Signs Temp 98.7 F 06/16/19 07:48 Pulse 78 06/16/19 07:48 Resp 18 06/16/19 08:04 BP 144/88 06/16/19 07:48 Pulse Ox 95 06/16/19 07:48 06/15/19 06/16/19 06/16/19 22:59 06:59 14:59 Intake Total 730 / 730 240 / 240 Balance 730 / 580 240 / 240 Weight last 48 hrs Weight 83.574 kg Weight 86.268 kg Physical Exam Narrative: EXAM NARRATIVE: vss noted comfortable in bed, nard heent- nc/at, eomi neck no jvp lungs clear b/l heart reg, no rubs, +YOSHI abd soft, + bs ext left bka rt 1+ edema neuro- a,a, o x 1+ no rash Const: GENERAL APPEARANCE: cooperative, comfortable and well kempt NUTRITIONAL APPEARANCE: overweight ORIENTATION/CONSCIOUSNESS: Yes awake and Yes oriented to person HENMT: COMMON NORMALS: normocephalic HEAD & SCALP: normocephalic FACE & SINUS: normal facial exam Neck/C-Spine: COMMON NORMALS: full ROM and no JVD Chest: COMMONS NORMALS: inspection of chest normal Resp: COMMON NORMALS: normal respiratory effort, no use of accessory muscles and clear to auscultation bilaterally AUSCULTATION: clear to auscultation bilaterally and crackles Cardio: COMMON NORMALS: no JVD, regular rate, regular rhythm, S1 normal heart sound, S2 normal heart sound and no clicks RATE: regular rate RHYTHM: regular rhythm HEART SOUNDS: S1 normal, S2 normal and no murmurs GI: COMMON NORMALS: normal to inspection, nondistended, normoactive bowel sounds, soft to palpation, non-tender and no hepatosplenomegaly AUSCULTATION: Yes normoactive bowel sounds PALPATION: Yes soft and Yes no hepatosplenomegaly Extremity: NARRATIVE EXTREMITY EXAM: rt bka, left bka Neuro: SENSORIUM/ORIENTATION: Yes oriented to person Psych: APPEARANCE: Yes well kempt A&P Additional A&P Information 1. left foot om abx renal dose -s/p left Left BKA on 06/15/19 -redose vanco per level -dm control 2. phos binders 3. anemia - hgb okay -high iron sat hold epo for now 4. ESRD- hd in am 3.5 hrs, 2k, remove 2l 5. bp stable Attestations Medical Necessity Statement*: esrd, pvd s/p left bka Time Spent in Patient Care: 16 - 35 minutes Coding Level of Care Code Acute Assistance Specialist for [facility] Pa
--- NOTE | 2019-06-16 10:56 | PM.PN ---
Subjective Subjective: Interval history: s/p L BKA, POD 1. ~10cc output in hemovac drain. Noted to be drowsy, however wakes up easily to calling name and answers basic questions. Medications: Reviewed: Yes Vitals/I&O/Wt Last Vital Signs Temp 98.7 F 06/16/19 07:48 Pulse 78 06/16/19 07:48 Resp 18 06/16/19 08:04 BP 144/88 06/16/19 07:48 Pulse Ox 95 06/16/19 07:48 06/15/19 06/16/19 06/16/19 22:59 06:59 14:59 Intake Total 730 / 730 240 / 240 Balance 730 / 580 240 / 240 Weight last 48 hrs Weight 83.574 kg Weight 86.268 kg Physical Exam Narrative: EXAM NARRATIVE: General: Asleep when first seen, wakes up easily to calling name, answers simple questions pertaining to pain, etc. HEENT: PERRLA, pupils bilaterally equal and reactive Chest: Normal vesicular breath sounds, no added sounds, equal good air entry bilaterally CVS: S1-S2 regular, no murmurs, no tachycardia, no gallops, no rubs Abdomen: Soft, nontender, no organomegaly, bowel sounds present Neuro: No focal deficits Ext: right BKA, left BKA POD 1, surgicalwound not opened for exam. hemovac+. A&P Assessment and plan (1) Osteomyelitis: Status: Acute Code(s): M86.9 - Osteomyelitis, unspecified (2) Renal failure: Status: Acute Code(s): N19 - Unspecified kidney failure (3) Sepsis: Status: Acute Code(s): A41.9 - Sepsis, unspecified organism (4) Diabetes: Status: Chronic Code(s): E11.9 - Type 2 diabetes mellitus without complications (5) CHF (congestive heart failure): Status: Chronic Code(s): I50.9 - Heart failure, unspecified (6) CAD (coronary artery disease): Status: Chronic Code(s): I25.10 - Atherosclerotic heart disease of [place] coronary artery without angina pectoris (7) HTN (hypertension): Status: Chronic Code(s): I10 - Essential (primary) hypertension Additional A&P Information Chronic left heel osteomyelitis. With exposure of tendons and bones. Patient elected to undergo left BKA in spite of being offered limb salvage options as he beleived that his quality of life will be better. he has previously had a R BKA for the same reason and feels that he has been more comfortable since getting BKA and does not wish to go through repeated cycles of I&D, antibiotics etc. S/P L BKA POD 1. Drain and wound management per surgical team. Pain adequately controlled. Patient has underlying CKD, will need to be careful and conservative with opiates. He appears to be oversedated today. pupils are not pinpoint. Stop iv morphine. Reduce [place] frequency from q4h prn to q8h prn Prefer to use po Tramadol with prn iv tylenol if needed #ESRD on hemodialysis Thursday ?Dialysis per nephrology. #Hypertension ?Continue with home medication. Currently controlled. #DMII fingersticks are currently well controlled. HbA1c in the morning. - ISS #Continue with rest of chronic home medications # DVT ppx: Heparing subq Attestations Medical Necessity Statement*: s/p BKA POD 1, ongoing monitoring Coding Level of Care Code Acute Printed Circuit Board Assembly Repairer for g Fwd Diagnoses Osteomyelitis M86.9 Renal failure N19 Sepsis A41.9 Diabetes E11.9 CHF (congestive heart failure) I50.9 CAD (coronary artery disease) I25.10 HTN (hypertension) I10
[2019-06-16 11:16] LABS: Glucose Point of Care 110 mg/dL (70-110)
--- NOTE | 2019-06-16 11:43 | PC.NURSE ---
IV to left forearm/wrist area removed intact. Tolerated well. Covered with 2x2 and coban. New IV to left forearm. Attempted x1 with 20 gauge. Pt tolerated well. Covered with venaguard and coban.
--- NOTE | 2019-06-16 12:45 | ANE.PACU ---
 Inpatient post-anesthesia follow up: Airway intact: Yes Vital signs: Temperature 97.9 F Pulse Rate [Left D orsalis 87 Pedis] Pulse Rate [Bilate ral Radial] 74 Pulse Rate [Monito r] 82 Pulse Rate 72 Respiratory Rate 18 Blood Pressure [Ri ght Arm] 126/74 Blood Pressure 166/93 Pulse Oximetry 98 Oxygen Delivery Me thod [ Nasal Cannula Current Rate & Del panda] Oxygen Delivery Me thod Room Air Oxygen Flow Rate [ Current Rate 3 & Delivery] Fraction of Inspir ed Oxygen Hydration adequate: Yes Nausea and vomiting: No Mental status: Baseline
[2019-06-16 16:08] LABS: Glucose Point of Care 94 mg/dL (70-110)
[2019-06-16] MEDS: atorvastatin 40 mg Tablet 20 MG PO (21:09)
[2019-06-16 21:20] LABS: Glucose Point of Care 101 mg/dL (70-110)
[2019-06-17] VITALS (10 sets, daily range): BP systolic 117–167; BP diastolic 61–84; PULSE 68–91; RESP 16–19; TEMP 36.6–36.9; O2SAT 85–97; BMI 24.3
[2019-06-17] MEDS: HYDROcodone-acetaminophen 5-325 mg Tablet 1 TAB PO ×2 (04:56→13:50)
[2019-06-17 05:32] LABS: Basophils % 0.2 %; Eosinophils # 0.3 10^3/uL (0.0-0.8); Eosinophils % 2.5 %; Hematocrit 24.9 % (42.0-52.0); Hemoglobin 7.5 g/dL (11.7-16.6); Lymphocytes # 0.6 10^3/uL (0.8-4.8); Lymphocytes % 5.7 %; Mean Corpuscular HGB Conc 30.1 g/dL (30.0-36.0); Mean Corpuscular Hemoglobin 28.2 pg (28.0-34.0); Mean Corpuscular Volume 93.6 fL (80-94); Mean Platelet Volume 10.2 fL (7.4-10.4); Monocytes # 1.5 10^3/uL (0.2-0.9); Monocytes % 14.6 %; Neutrophils # 7.6 10^3/uL (1.8-7.7); Neutrophils % 76.4 %; Nucleated Red Blood Cells % 0 %; Platelet Count 208 10^3/cmm (130-400); Red Blood Count 2.66 10^6/uL (4.1-5.3); Red Cell Distribution Width 15.2 % (12.1-15.1)
[2019-06-17 05:50] LABS: Alanine Aminotransferase 261 U/L (0-41); Albumin Level 3.5 g/dL (3.5-5.2); Alkaline Phosphatase 118 IU/L (40-130); Anion Gap 22.4 (5-19); Aspartate Amino Transferase 113 U/L (0-40); Blood Urea Nitrogen 39 mg/dL (8-23); Calcium 9.4 mg/Dl (8.8-10.2); Carbon Dioxide 24 mmol/L (22-29); Chloride 96 mmol/L (98-107); Globulin 3.4 g/dL (1.3-4.6); Glomerular Filtration Rate 8.7 mL/min (90-130); Glucose 85 mg/dL (74-106); Potassium 4.4 mmol/L (3.5-5.1); Sodium 138 mmol/L (136-145); Total Bilirubin 0.5 mg/dL (0.15-1.2); Total Protein 6.9 g/dL (6.6-8.7)
[2019-06-17] MEDS: TRAMadol 50 mg Tablet PO ×3 (07:02→20:28)
[2019-06-17 07:08] LABS: Glucose Point of Care 113 mg/dL (70-110)
--- NOTE | 2019-06-17 09:23 | US_ITS ---
WS: [id number] ULTRASOUND ABDOMEN LIMITED CLINICAL INFORMATION: transaminitis COMPARISON: None. FINDINGS: Liver Size: Normal. Craniocaudal length: 15.2 cm. Echogenicity: Normal. Surface nodularity: None. Mass (size and location): None. Bile ducts Intrahepatic ducts: Normal. Common bile duct diameter: 2.7 mm. Gallbladder Mild wall thickening measuring 3.6 mm Gallstones: None. Gallbladder sludge: None. Gallbladder wall thickenin.6 mm Pericholecystic fluid: None. Sonographic Sahni sign: Absent. Pancreas Normal as visualized. Right kidney: Normal. Hydronephrosis: None. Size: 9.8 cm x 3.5 cm x 4.7 cm. Abdominal aorta and IVC Visualized portions are normal. Ascites: None. US/US abdomen limited [id number] IMPRESSION: 1. Liver is normal in appearance. 2. Mild gallbladder wall thickening measuring 3.6 mm. No pericholecystic fluid . No cholelithiasis. 3. Normal common bile duct. 4. No hydronephrosis in right kidney.
--- NOTE | 2019-06-17 09:27 | P.PN_ITS ---
Subjective Subjective: Interval history: seein in dialysis this morning. Reports 10/10 pain. Awake, alert and oriented this morning, likely due to reducing opiates. Medications: Reviewed: Yes Vitals/I&O/Wt Last Vital Signs Temp 97.8 F 06/17/19 04:00 Pulse 78 06/17/19 04:00 Resp 19 H 06/17/19 04:00 BP 129/61 06/17/19 04:00 Pulse Ox 91 06/17/19 04:00 06/16/19 06/17/19 06/17/19 22:59 06:59 14:59 Intake Total 240 / 720 500 / 1220 Balance 240 / 720 500 / 1220 Weight last 48 hrs Weight 81.25 kg Weight 83.574 kg Physical Exam Narrative: EXAM NARRATIVE: General: Asleep when first seen, wakes up easily to calling name, answers simple questions pertaining to pain, etc. HEENT: PERRLA, pupils bilaterally equal and reactive Chest: Normal vesicular breath sounds, no added sounds, equal good air entry bilaterally CVS: S1-S2 regular, no murmurs, no tachycardia, no gallops, no rubs Abdomen: Soft, nontender, no organomegaly, bowel sounds present Neuro: No focal deficits Ext: right BKA, left BKA POD 2, surgicalwound healing well, sutures intact, no discharge Data : 06/17/19 14:35 06/17/19 05:13 A&P Assessment and plan (1) Osteomyelitis: Status: Acute Code(s): M86.9 - Osteomyelitis, unspecified (2) Renal failure: Status: Acute Code(s): N19 - Unspecified kidney failure (3) Sepsis: Status: Acute Code(s): A41.9 - Sepsis, unspecified organism (4) Diabetes: Status: Chronic Code(s): E11.9 - Type 2 diabetes mellitus without complications (5) CHF (congestive heart failure): Status: Chronic Code(s): I50.9 - Heart failure, unspecified (6) CAD (coronary artery disease): Status: Chronic Code(s): I25.10 - Atherosclerotic heart disease of [place] coronary artery without angina pectoris (7) HTN (hypertension): Status: Chronic Code(s): I10 - Essential (primary) hypertension Additional A&P Information Chronic left heel osteomyelitis. With exposure of tendons and bones. Patient elected to undergo left BKA in spite of being offered limb salvage options as he beleived that his quality of life will be better. he has previously had a R BKA for the same reason and feels that he has been more comfortable since getting BKA and does not wish to go through repeated cycles of I&D, antibiotics etc. S/P L BKA POD 2.Drain removed. Wound appears to be healing well Pain this morning, morphine given 1mg x 1 with relief. Patient has underlying CKD, will need to be careful and conservative with opiates. Prefer to use po Tramadol Transaminitis on labs since 06/14, appears to have stabilized. RUQ USG to ascertain cause #ESRD on hemodialysis Thursday ?Dialysis per nephrology. #Hypertension ?Continue with home medication. Currently controlled. #DMII fingersticks are currently well controlled. ISS #Continue with rest of chronic home medications # DVT ppx: Heparing subq Attestations Medical Necessity Statement*: post op monitoring, getting HD today Coding Level of Care Code Acute Asphalt Machine Operator for g Fwd Diagnoses Osteomyelitis M86.9 Renal failure N19 Sepsis A41.9 Diabetes E11.9 CHF (congestive heart failure) I50.9 CAD (coronary artery disease) I25.10 HTN (hypertension) I10
[2019-06-17] MEDS: morphine 4 mg/mL SDV 1 mL 1 MG IVP (09:30)
--- NOTE | 2019-06-17 09:56 | PC.OT ---
PATIENT IN DIALYSIS THIS MORNING; UNAVAILABLE FOR SKILLED OT TREATMENT
--- NOTE | 2019-06-17 10:15 | PC.NURSE ---
Pt in dialysis at this time. Dr. Tracey rounding and assessed pt LLE. Dressing changed per order by this nurse. One unit of PRBC retrieved from lab and handed off to SAMPSON Morton in dialysis. Double checks completed and blood administration performed by Selene.
[2019-06-17 12:10] LABS: Glucose Point of Care 80 mg/dL (70-110)
[2019-06-17] MEDS: isosorbide mononitrate 20 mg Tablet 120 MG PO (12:11)
[2019-06-17] MEDS: amlodipine 10 mg Tablet PO (12:12)
[2019-06-17] MEDS: sevelamer 800 mg Tablet PO ×2 (12:13→22:35)
[2019-06-17] MEDS: aspirin 81 mg EC Tablet PO (12:14)
--- NOTE | 2019-06-17 12:22 | PC.NURSE ---
Pt arrived back to floor from dialysis requesting pain medication. This nurse at [facility] retrieving medication. PIPE COVERER entered room to check pt blood sugar. Pt began cursing and yelling at PIPE COVERER. Allowed for her to complete blood sugar check. US arrived for abd. Pt refused stating I want my pain medicine first and lunch . Pt educated that he cannot eat until the ultrasound is completed. Pain medication administered as ordered. Pt continues to yell obscenities stating you're a fucking bitch and liar and you'll listen to me .
--- NOTE | 2019-06-17 12:44 | PM.PN ---
Subjective Subjective: Interval history: Just returned from hemodialysis. No specific complaints. Vitals/I&O/Wt Last Vital Signs Temp 98.4 F 06/17/19 10:45 Pulse 70 06/17/19 10:15 Resp 16 06/17/19 10:45 BP 167/64 06/17/19 10:45 Pulse Ox 91 06/17/19 04:00 06/16/19 06/17/19 06/17/19 22:59 06:59 14:59 Intake Total 240 / 720 500 / 1220 Balance 240 / 720 500 / 1220 Weight last 48 hrs Weight 179 lb 2 oz Weight 184 lb 4 oz Data : 06/17/19 05:13 06/17/19 05:13 A&P Assessment and plan (1) Status post below-knee amputation of left lower extremity: Dressings remain in place. Dressings were changed earlier and reviewed by Dr. Tracey and nursing staff. No concerns noted. I have conferred with Dr. Tracey patient may be discharged, and has refused SNF. I will confirm that home health is arranged to allow for incision inspection and dressing changes as needed. He will be at increased risk for refusing custodial care. Status: Acute Code(s): Z89.512 - Acquired absence of left leg below knee Attestations Medical Necessity Statement*: Status post left BKA Time Spent in Patient Care: less than 15 minutes Coding Level of Care Code Acute Gusset Maker for Chg Fwd Diagnoses Status post below-knee amputation of left lower extremity Z89.512
--- NOTE | 2019-06-17 12:46 | PC.NURSE ---
Pt continues to yell in his room and call this nurse a fucking liar and bitch stating you said something about shoving something up your ass . This nurse attempted to reorientated pt to situation. Pt stated take me back to my room . This nurse explained that he was in his room and had received his pain medication. Continues to yell at this nurse. This nurse exited room. Dr. Tracey made aware.
[2019-06-17 14:48] LABS: Hematocrit 25.7 % (42.0-52.0); Hemoglobin 7.8 g/dL (11.7-16.6)
--- NOTE | 2019-06-17 14:56 | DCPLANNER ---
*IMM* Updated, signed by screen writer and placed in the chart.
[2019-06-17 16:16] LABS: Glucose Point of Care 89 mg/dL (70-110)
--- NOTE | 2019-06-17 17:09 | PC.NURSE ---
THIS NURSE ANSWERED HIS CALL LIGHT AND PT STATED HE WANTED FOOD, ANTIBIOTICS, AND PAIN MEDICATION THIS NURSE STATED SHE WOULD SEE WHEN HIS NEXT MEDICATIONS ARE DUE AND WILL LET HIM KNOW, HE THEN PRECEDED TO ASK THIS NURSE IF SHE WAS TOO DUMB THAT YOU HAD TO WAIT ON THE DR TO TELL YOU WHAT TO FEED PEOPLE , THIS NURSE HAD PREVIOUSLY STATED THAT I WAS WAITING FOR THE DR TO CHANGE ORDERS FOR FOOD. HE STATED I WAS STARVING HIM AND HE NEEDED FOOD, THIS HOSPITAL WAS HORRIBLE , AND HE WANTED ME TO BE THERE WHEN HE TOLD THE DR.
--- NOTE | 2019-06-17 19:07 | PM.PN ---
Subjective Subjective: Interval history: He's confused, but he appears to be generally comfortable. No edema. Received dialysis today. BPs look good Vitals/I&O/Wt Last Vital Signs Temp 98.4 F 06/17/19 16:00 Pulse 80 06/17/19 16:00 Resp 17 06/17/19 16:00 BP 142/80 06/17/19 16:00 Pulse Ox 97 06/17/19 16:00 06/17/19 06/17/19 06/17/19 06:59 14:59 22:59 Intake Total 500 / 1220 Balance 500 / 1220 Weight last 48 hrs Weight 81.25 kg Weight 83.574 kg Physical Exam Const: COMMON NORMALS: no apparent distress Neck/C-Spine: COMMON NORMALS: no JVD Lymph: LYMPHATIC: no lymphadenopathy noted and no lymphedema noted Chest: COMMONS NORMALS: inspection of chest normal and palpation of chest normal Resp: COMMON NORMALS: normal respiratory effort and no retractions Cardio: COMMON NORMALS: no JVD and regular rate RATE: regular rate : COMMON NORMALS: Yes no CVA tenderness and Yes external exam normal BLADDER/KIDNEY EXAM: Yes no CVA tenderness Back/Pelvis: COMMON NORMALS: no CVA tenderness Data : 06/17/19 14:35 06/17/19 05:13 A&P Additional A&P Information 1. ESRD - MWF schedule - dose meds for eGFR < 15 on dialysis 2. S/p BKA - per ortho - analgesics - PT/OT 3. Anemia - will give EPO 4. Hemodynamics look good Attestations Medical Necessity Statement*: eval and mgmt of ESRD Coding Level of Care Code Acute Distribution Center Administrator for [facility]
[2019-06-17] MEDS: atorvastatin 40 mg Tablet 20 MG PO (20:23)
[2019-06-17 21:33] LABS: Glucose Point of Care 144 mg/dL (70-110)
[2019-06-18] VITALS (7 sets, daily range): BP systolic 122–160; BP diastolic 67–81; PULSE 67–77; RESP 18–19; TEMP 36.4–36.8; O2SAT 90–99
[2019-06-18 06:40] LABS: Glucose Point of Care 129 mg/dL (70-110)
[2019-06-18] MEDS: aspirin 81 mg EC Tablet PO (08:55)
[2019-06-18] MEDS: isosorbide mononitrate 20 mg Tablet 120 MG PO (08:55)
[2019-06-18] MEDS: sevelamer 800 mg Tablet PO ×3 (08:55→22:09)
[2019-06-18] MEDS: levoFLOXacin 500 mg Tablet PO (08:55)
[2019-06-18] MEDS: amlodipine 10 mg Tablet PO (08:55)
--- NOTE | 2019-06-18 10:27 | P.PN_ITS ---
Subjective Subjective: Interval history: Postop day #3 status post left BKA. Nursing service reports some intermittent episodes of confusion, though on my conversation with him this morning, he did seem to be appropriate. He has initially refused shelter care. I spoke with that to him this morning, and he now is agreeable to skilled care. Dressing change was performed on his left BKA. The flap closure looks very good. Vitals/I&O/Wt Last Vital Signs Temp 98 F 06/18/19 07:52 Pulse 71 06/18/19 07:52 Resp 18 06/18/19 07:52 BP 160/81 06/18/19 07:52 Pulse Ox 97 06/18/19 07:52 06/17/19 06/18/19 06/18/19 22:59 06:59 14:59 Intake Total 0 / 0 240 / 240 Output Total 0 / 0 Balance 0 / 0 240 / 240 Weight last 48 hrs Weight 179 lb 2 oz Physical Exam Extremity: COMMON NORMALS: normal to inspection NARRATIVE EXTREMITY EXAM: Left BKA closure appears to be intact with only modest edema. Flap looks very good. Incision line remains intact. Dressing was replaced. Data : 06/17/19 14:35 06/17/19 05:13 Micro: Microbiology 06/12/19 21:22 Blood Culture - Final Blood NO GROWTH AFTER 5 DAYS 06/12/19 21:18 Blood Culture - Final Blood NO GROWTH AFTER 5 DAYS A&P Assessment and plan (1) Status post below-knee amputation of left lower extremity: Postop #3 status post left BKA closure. Patient has agreed to shelter care at discharge Daily dressing changes to be performed by nursing service. Status: Acute Code(s): Z89.512 - Acquired absence of left leg below knee Attestations Medical Necessity Statement*: Postop day #3 status post left BKA due to nonhealing chronic left foot ulcer Coding Level of Care Code Acute Fire Extinguisher Sprinkler Inspector for [facility] Fwd Diagnoses Status post below-knee amputation of left lower extremity Z89.512
[2019-06-18 12:36] LABS: Glucose Point of Care 281 mg/dL (70-110)
[2019-06-18 13:12] LABS: Basophils % 0.1 %; Eosinophils # 0.2 10^3/uL (0.0-0.8); Eosinophils % 2.3 %; Hematocrit 25.8 % (42.0-52.0); Hemoglobin 7.9 g/dL (11.7-16.6); Lymphocytes # 0.4 10^3/uL (0.8-4.8); Lymphocytes % 4.4 %; Mean Corpuscular HGB Conc 30.6 g/dL (30.0-36.0); Mean Corpuscular Hemoglobin 27.7 pg (28.0-34.0); Mean Corpuscular Volume 90.5 fL (80-94); Mean Platelet Volume 10.3 fL (7.4-10.4); Monocytes # 1.2 10^3/uL (0.2-0.9); Monocytes % 14.9 %; Neutrophils # 6.5 10^3/uL (1.8-7.7); Neutrophils % 77.7 %; Nucleated Red Blood Cells % 0 %; Platelet Count 202 10^3/cmm (130-400); Red Blood Count 2.85 10^6/uL (4.1-5.3); Red Cell Distribution Width 17.2 % (12.1-15.1); White Blood Count 8.3 10^3/uL (4.0-10.0)
[2019-06-18 13:19] LABS: Alanine Aminotransferase 177 U/L (0-41); Albumin Level 3.3 g/dL (3.5-5.2); Alkaline Phosphatase 153 IU/L (40-130); Anion Gap 18.9 (5-19); Aspartate Amino Transferase 50 U/L (0-40); Blood Urea Nitrogen 28 mg/dL (8-23); Calcium 9.2 mg/Dl (8.8-10.2); Carbon Dioxide 26 mmol/L (22-29); Chloride 93 mmol/L (98-107); Globulin 3.3 g/dL (1.3-4.6); Glomerular Filtration Rate 10.8 mL/min (90-130); Glucose 199 mg/dL (74-106); Potassium 3.9 mmol/L (3.5-5.1); Sodium 134 mmol/L (136-145); Total Bilirubin 0.5 mg/dL (0.15-1.2); Total Protein 6.6 g/dL (6.6-8.7)
[2019-06-18 17:11] LABS: Glucose Point of Care 105 mg/dL (70-110)
--- NOTE | 2019-06-18 17:27 | P.PN_ITS ---
Subjective Subjective: Interval history: Postop day #3 status post left BKA. Pain is currently well controlled. Patient is completely alert and awake this morning. Nursing staff has reported that he has been verbally abusive towards them and often cursing. Initially this has been attributed to confusion and some underlying dementia. I am uncertain if this is indeed confusion as patient has been completely alert awake and appropriate during all of my conversations with him. It is possible that he is exhibiting different behaviors with the nursing staff and with the physicians. Medications: Reviewed: Yes Vitals/I&O/Wt Last Vital Signs Temp 98.1 F 06/18/19 15:55 Pulse 70 06/18/19 15:55 Resp 18 06/18/19 15:55 BP 122/72 06/18/19 15:55 Pulse Ox 99 06/18/19 15:55 06/18/19 06/18/19 06/18/19 06:59 14:59 22:59 Intake Total 240 / 240 Output Total 0 / 0 Balance 240 / 240 Weight last 48 hrs Weight 81.25 kg Physical Exam Narrative: EXAM NARRATIVE: General: Alert awake oriented, family at bedside he is conversing appropriately HEENT: PERRLA, pupils bilaterally equal and reactive Chest: Normal vesicular breath sounds, no added sounds, equal good air entry bilaterally CVS: S1-S2 regular, no murmurs, no tachycardia, no gallops, no rubs Abdomen: Soft, nontender, no organomegaly, bowel sounds present Neuro: No focal deficits Ext: right BKA, left BKA POD 3, surgical wound healing well, sutures intact Data : 06/18/19 12:36 06/18/19 12:36 Micro: Microbiology 06/12/19 21:22 Blood Culture - Final Blood NO GROWTH AFTER 5 DAYS 06/12/19 21:18 Blood Culture - Final Blood NO GROWTH AFTER 5 DAYS A&P Assessment and plan (1) Osteomyelitis: Status: Acute Code(s): M86.9 - Osteomyelitis, unspecified (2) Renal failure: Status: Acute Code(s): N19 - Unspecified kidney failure (3) Sepsis: Status: Acute Code(s): A41.9 - Sepsis, unspecified organism (4) Diabetes: Status: Chronic Code(s): E11.9 - Type 2 diabetes mellitus without complications (5) CHF (congestive heart failure): Status: Chronic Code(s): I50.9 - Heart failure, unspecified (6) CAD (coronary artery disease): Status: Chronic Code(s): I25.10 - Atherosclerotic heart disease of [place] coronary artery without angina pectoris (7) HTN (hypertension): Status: Chronic Code(s): I10 - Essential (primary) hypertension Additional A&P Information Chronic left heel osteomyelitis. With exposure of tendons and bones. Patient elected to undergo left BKA in spite of being offered limb salvage options as he beleived that his quality of life will be better. he has previously had a R BKA for the same reason and feels that he has been more comfortable since getting BKA and does not wish to go through repeated cycles of I&D, antibiotics etc. S/P L BKA POD 3. Wound appears to be healing well . Discontinue krys-op antibiotics today. Pain currently well controlled with Dilaudid Patient has underlying CKD, will need to be careful and conservative with opiates. Prefer to use po Tramadol Transaminitis on labs now improving. Unclear cause. Right upper quadrant ultrasound shows liver is normal in appearance. Mild gallbladder wall thickening 3.6 mm however no pericholecystic fluid to suggest cholecystitis. CBD is normal. #ESRD on hemodialysis Thursday ?Dialysis per nephrology. #Hypertension ?Continue with home medication. Currently controlled. #DMII fingersticks are currently well controlled. ISS #Continue with rest of chronic home medications # DVT ppx: Heparing subq Attestations Medical Necessity Statement*: Patient was initially planned for discharge to home today, however now after much counseling he has changed his mind and wishes to go to [facility] instead. Several facilities have been contacted; pending placement Coding Level of Care Code Acute Vest Front Presser for [facility] Fwd Diagnoses Osteomyelitis M86.9 Renal failure N19 Sepsis A41.9 Diabetes E11.9 CHF (congestive heart failure) I50.9 CAD (coronary artery disease) I25.10 HTN (hypertension) I10
[2019-06-18] MEDS: HYDROcodone-acetaminophen 5-325 mg Tablet 1 TAB PO (18:27)
[2019-06-18 21:51] LABS: Glucose Point of Care 266 mg/dL (70-110)
[2019-06-18] MEDS: atorvastatin 40 mg Tablet 20 MG PO (22:09)
[2019-06-19] VITALS: BP 133/73; PULSE 63; RESP 17; TEMP 36.7; O2SAT 95
[2019-06-19 04:00] VITALS: BP 128/74; PULSE 68; RESP 18; TEMP 36.6; O2SAT 94
[2019-06-19 06:42] LABS: Glucose Point of Care 158 mg/dL (70-110)
[2019-06-19 07:41] VITALS: BP 131/77; PULSE 67; RESP 18; TEMP 36.8; O2SAT 90
--- NOTE | 2019-06-19 07:43 | PC.NURSE ---
pt is refusing to wear telemetry, okayed this and stated she did not believe he needed it.
[2019-06-19] MEDS: aspirin 81 mg EC Tablet PO (08:57)
[2019-06-19] MEDS: amlodipine 10 mg Tablet PO (08:57)
[2019-06-19] MEDS: sevelamer 800 mg Tablet PO ×3 (08:57→21:56)
[2019-06-19] MEDS: isosorbide mononitrate ER 60 mg Tablet 120 MG PO (08:58)
[2019-06-19] MEDS: HYDROcodone-acetaminophen 5-325 mg Tablet 1 TAB PO (09:01)
--- NOTE | 2019-06-19 09:36 | PC.SOCIAL ---
Pg [facility] of [facility] was updated with patient and a copy provided. He verbalized understanding and had no questions.
[2019-06-19 11:13] VITALS: BP 133/75; PULSE 79; RESP 18; TEMP 37.2; O2SAT 94
--- NOTE | 2019-06-19 11:15 | P.PN_ITS ---
Subjective Subjective: Interval history: POD#4 s/p left bka. Receiving physical therapy on rounds this morning. Nurses report no concerns about bka. Pt. states no concerns or substantial pain. Vitals/I&O/Wt Last Vital Signs Temp 98.3 F 06/19/19 07:41 Pulse 67 06/19/19 07:41 Resp 18 06/19/19 07:41 BP 131/77 06/19/19 07:41 Pulse Ox 90 06/19/19 07:41 06/18/19 06/19/19 06/19/19 22:59 06:59 14:59 Intake Total 240 / 240 240 / 480 480 / 480 Output Total 0 / 0 0 / 0 Balance 240 / 240 240 / 480 480 / 480 Weight last 48 hrs Weight 187 lb 9 oz Data : 06/18/19 12:36 06/18/19 12:36 A&P Assessment and plan (1) Status post below-knee amputation of left lower extremity: POD#4 s/p bka. progressing well Status: Acute Code(s): Z89.512 - Acquired absence of left leg below knee Attestations Medical Necessity Statement*: s/p bka Time Spent in Patient Care: less than 15 minutes Coding Level of Care Code Acute Data Warehouse Manager for [facility] Fwd Diagnoses Status post below-knee amputation of left lower extremity Z89.512
--- NOTE | 2019-06-19 11:25 | PM.PN ---
Subjective Subjective: Interval history: POD#4 s/p left bka. More lucid today; conversant, no issues, feels good. Pain is controlled, pending placement Medications: Reviewed: Yes Vitals/I&O/Wt Last Vital Signs Temp 98.9 F 06/19/19 11:13 Pulse 79 06/19/19 11:13 Resp 18 06/19/19 11:13 BP 133/75 06/19/19 11:13 Pulse Ox 94 06/19/19 11:13 06/18/19 06/19/19 06/19/19 22:59 06:59 14:59 Intake Total 240 / 240 240 / 480 480 / 480 Output Total 0 / 0 0 / 0 Balance 240 / 240 240 / 480 480 / 480 Weight last 48 hrs Weight 85.077 kg Physical Exam Const: COMMON NORMALS: no apparent distress Neck/C-Spine: COMMON NORMALS: no JVD Lymph: LYMPHATIC: no lymphadenopathy noted and no lymphedema noted Chest: COMMONS NORMALS: inspection of chest normal and palpation of chest normal Resp: COMMON NORMALS: normal respiratory effort and no retractions Cardio: COMMON NORMALS: no JVD and regular rate RATE: regular rate : COMMON NORMALS: Yes no CVA tenderness and Yes external exam normal BLADDER/KIDNEY EXAM: Yes no CVA tenderness Back/Pelvis: COMMON NORMALS: no CVA tenderness Data : 06/18/19 12:36 06/18/19 12:36 A&P Additional A&P Information 1. ESRD - MWF schedule - 3.5hrs, 2L, 3K bath - dose meds for eGFR < 15 on dialysis 2. S/p BKA - per ortho - analgesics - PT/OT 3. Anemia - will give EPO MWF 4. Hemodynamics look good Attestations Medical Necessity Statement*: eval for ESRD mgmt Coding Level of Care Code Acute Die Trouble Shooter for [facility]
--- NOTE | 2019-06-19 15:53 | PC.NURSE ---
PATIENT REFUSED TO WHERE TELEMETRY. STATED THAT HE DIDN'T NEED TO WEAR ONE .
[2019-06-19 16:00] VITALS: BP 134/67; PULSE 73; RESP 18; TEMP 36.8; O2SAT 90
--- NOTE | 2019-06-19 16:51 | PM.PN ---
Subjective Subjective: Interval history: POD#4 s/p left bka. Medications: Reviewed: Yes Vitals/I&O/Wt Last Vital Signs Temp 98.2 F 06/19/19 16:00 Pulse 73 06/19/19 16:00 Resp 18 06/19/19 16:00 BP 134/67 06/19/19 16:00 Pulse Ox 90 06/19/19 16:00 06/19/19 06/19/19 06/19/19 06:59 14:59 22:59 Intake Total 240 / 480 480 / 480 Output Total 0 / 0 Balance 240 / 480 480 / 480 Weight last 48 hrs Weight 85.077 kg Physical Exam Narrative: EXAM NARRATIVE: General: Alert awake oriented, family at bedside he is conversing appropriately HEENT: PERRLA, pupils bilaterally equal and reactive Chest: Normal vesicular breath sounds, no added sounds, equal good air entry bilaterally CVS: S1-S2 regular, no murmurs, no tachycardia, no gallops, no rubs Abdomen: Soft, nontender, no organomegaly, bowel sounds present Neuro: No focal deficits Ext: right BKA, left BKA POD 3, surgical wound healing well, sutures intact Data : 06/18/19 12:36 06/18/19 12:36 A&P Assessment and plan (1) Osteomyelitis: Status: Acute Code(s): M86.9 - Osteomyelitis, unspecified (2) Renal failure: Status: Acute Code(s): N19 - Unspecified kidney failure (3) Sepsis: Status: Acute Code(s): A41.9 - Sepsis, unspecified organism (4) Diabetes: Status: Chronic Code(s): E11.9 - Type 2 diabetes mellitus without complications (5) CHF (congestive heart failure): Status: Chronic Code(s): I50.9 - Heart failure, unspecified (6) CAD (coronary artery disease): Status: Chronic Code(s): I25.10 - Atherosclerotic heart disease of [place] coronary artery without angina pectoris (7) HTN (hypertension): Status: Chronic Code(s): I10 - Essential (primary) hypertension Additional A&P Information Chronic left heel osteomyelitis. With exposure of tendons and bones. Patient elected to undergo left BKA in spite of being offered limb salvage options as he beleived that his quality of life will be better. he has previously had a R BKA for the same reason and feels that he has been more comfortable since getting BKA and does not wish to go through repeated cycles of I&D, antibiotics etc. S/P L BKA POD 4. Wound appears to be healing well . Pain currently well controlled with Dilaudid Patient has underlying CKD, will need to be careful and conservative with opiates. Prefer to use po Tramadol Transaminitis improving #ESRD on hemodialysis Thursday ?Dialysis per nephrology. #Hypertension ?Continue with home medication. Currently controlled. #DMII fingersticks are currently well controlled. ISS #Continue with rest of chronic home medications # DVT ppx: Heparing subq Attestations Medical Necessity Statement*: Ready for discharge, pending placement at care home facility. Coding Level of Care Code Acute Infection Control Specialist for Angel Winn Diagnoses Osteomyelitis M86.9 Renal failure N19 Sepsis A41.9 Diabetes E11.9 CHF (congestive heart failure) I50.9 CAD (coronary artery disease) I25.10 HTN (hypertension) I10
[2019-06-19 17:13] LABS: Glucose Point of Care 118 mg/dL (70-110)
[2019-06-19 20:00] VITALS: BP 142/63; PULSE 75; RESP 18; TEMP 36.7; O2SAT 90
[2019-06-19 20:51] LABS: Glucose Point of Care 191 mg/dL (70-110)
[2019-06-19] MEDS: atorvastatin 40 mg Tablet 20 MG PO (21:55)
[2019-06-20] VITALS (8 sets, daily range): BP systolic 133–179; BP diastolic 60–98; PULSE 41–94; RESP 18; TEMP 36.7–36.9; O2SAT 92–96
[2019-06-20] MEDS: HYDROcodone-acetaminophen 5-325 mg Tablet 1 TAB PO ×2 (01:33→10:45)
[2019-06-20 06:02] LABS: Basophils % 0.3 %; Eosinophils # 0.2 10^3/uL (0.0-0.8); Eosinophils % 3.1 %; Hematocrit 28.6 % (42.0-52.0); Hemoglobin 8.7 g/dL (11.7-16.6); Lymphocytes # 0.6 10^3/uL (0.8-4.8); Lymphocytes % 7.9 %; Mean Corpuscular HGB Conc 30.4 g/dL (30.0-36.0); Mean Corpuscular Hemoglobin 27.4 pg (28.0-34.0); Mean Corpuscular Volume 90.2 fL (80-94); Mean Platelet Volume 10.8 fL (7.4-10.4); Monocytes # 0.8 10^3/uL (0.2-0.9); Monocytes % 11.5 %; Neutrophils # 5.6 10^3/uL (1.8-7.7); Neutrophils % 76.8 %; Nucleated Red Blood Cells % 0 %; Platelet Count 234 10^3/cmm (130-400); Red Blood Count 3.17 10^6/uL (4.1-5.3); Red Cell Distribution Width 16.9 % (12.1-15.1); White Blood Count 7.3 10^3/uL (4.0-10.0)
--- NOTE | 2019-06-20 06:25 | PM.PN ---
Subjective Subjective: Interval history: feels well. no n/v/f/c/cp/griffith/ diarrhea. legs okat Medications: Medication Review Details: Current Medications Hydrocodone Bitart/Acetaminophen ([place] 5-325 Mg) 1 tab PO Q8H PRN PRN Reason: MODERATE PAIN Last Admin: 06/20/19 01:33 Dose: 1 tab Documented by: Alteplase, Recombinant (Cathflo) 2 mg INTRACATH PRN PRN PRN Reason: DIALYSIS USE ONLY Amlodipine Besylate (Norvasc) 10 mg PO DAILY COUNTS INCLUDE 234 BEDS AT THE [facility] Last Admin: 06/19/19 08:57 Dose: 10 mg Documented by: Aspirin (Aspirin Ec) 81 mg PO DAILY COUNTS INCLUDE 234 BEDS AT THE [facility] Last Admin: 06/19/19 08:57 Dose: 81 mg Documented by: Atorvastatin Calcium (Lipitor) 20 mg PO BEDTIME COUNTS INCLUDE 234 BEDS AT THE [facility] Last Admin: 06/19/19 21:55 Dose: 20 mg Documented by: Dextrose (D50w) 25 ml IVP ONCE PRN; Protocol PRN Reason: hypoglycemia protocol Dextrose (D50w) 50 ml IVP PRN PRN; Protocol PRN Reason: hypoglycemia protocol Glucagon (Glucagen) 1 mg IM ONCE PRN; Protocol PRN Reason: Adult Acute Hypoglycemia Prot. Dextrose (D5w) 500 mls @ 100 mls/hr IV ONCE PRN; Protocol PRN Reason: Adult Acute Hypoglycemia Prot Insulin Aspart (Novolog) 0 unit SUBCUT BEDTIME COUNTS INCLUDE 234 BEDS AT THE [facility]; Protocol Last Admin: 06/19/19 21:56 Dose: 2 unit Documented by: Insulin Aspart (Novolog) 0 unit SUBCUT TIDWM COUNTS INCLUDE 234 BEDS AT THE [facility]; Protocol Last Admin: 06/19/19 17:19 Dose: Not Given Documented by: Isosorbide Mononitrate (Imdur) 120 mg PO DAILY COUNTS INCLUDE 234 BEDS AT THE [facility] Last Admin: 06/19/19 08:58 Dose: 120 mg Documented by: Non-Formulary Medication (Naloxone) 4 mg INTRANASAL UNK COUNTS INCLUDE 234 BEDS AT THE [facility] Ondansetron HCl (Zofran) 4 mg IVP Q6H PRN PRN Reason: NAUSEA AND VOMITING Sevelamer Carbonate (Renvela) 800 mg PO TID COUNTS INCLUDE 234 BEDS AT THE [facility] Last Admin: 06/19/19 21:56 Dose: 800 mg Documented by: Tramadol HCl (Ultram) 50 mg PO Q4H PRN PRN Reason: MODERATE PAIN Last Admin: 06/17/19 20:28 Dose: 50 mg Documented by: Vitals/I&O/Wt Last Vital Signs Temp 98.1 F 06/20/19 04:00 Pulse 41 L 06/20/19 04:00 Resp 18 06/20/19 04:00 BP 148/65 06/20/19 04:00 Pulse Ox 92 06/20/19 04:00 06/19/19 06/19/19 06/20/19 14:59 22:59 06:59 Intake Total 480 / 480 200 / 680 Output Total 100 / 100 Balance 480 / 480 -100 / 380 200 / 580 Weight last 48 hrs Weight 84.867 kg Weight 85.077 kg Physical Exam Narrative: EXAM NARRATIVE: vss noted comfortable in bed, nard heent- nc/at, eomi neck no jvp lungs clear b/l heart reg, no rubs, +YOSHI abd soft, + bs ext b/l bka rt 1+ edema neuro- a,a, o x 3 no rash Const: COMMON NORMALS: oriented x3 GENERAL APPEARANCE: well kempt ORIENTATION/CONSCIOUSNESS: Yes oriented to person Extremity: NARRATIVE EXTREMITY EXAM: rt bka, left bka Neuro: COMMON NORMALS: oriented x3 SENSORIUM/ORIENTATION: Yes oriented to person Psych: APPEARANCE: Yes well kempt Data : 06/20/19 04:43 06/18/19 12:36 A&P Additional A&P Information 1. ESRD - MWF schedule - 3.5hrs, 2L, 3K bath - dose meds for eGFR < 15 on dialysis 2. S/p BKA - per aurgery - analgesics - PT/OT 3. Anemia - will give EPO MWF 4. htn- bp controlled- dec norvasc 5. bone- mineral- metabolism- phos binder Attestations Medical Necessity Statement*: s/p bka as per hospitalist and surgery. hd today Time Spent in Patient Care: 16 - 35 minutes (>than 50% of time spent in counselling and/or direct pt care on unit). Coding Level of Care Code Acute Software Test Developer for Angel Winn
[2019-06-20 06:29] LABS: Alanine Aminotransferase 100 U/L (0-41); Alkaline Phosphatase 192 IU/L (40-130); Anion Gap 24.3 (5-19); Aspartate Amino Transferase 23 U/L (0-40); Blood Urea Nitrogen 56 mg/dL (8-23); Carbon Dioxide 20 mmol/L (22-29); Chloride 95 mmol/L (98-107); Globulin 3.8 g/dL (1.3-4.6); Glucose 142 mg/dL (74-106); Potassium 4.3 mmol/L (3.5-5.1); Sodium 135 mmol/L (136-145); Total Bilirubin 0.4 mg/dL (0.15-1.2); Total Protein 6.8 g/dL (6.6-8.7)
[2019-06-20] MEDS: aspirin 81 mg EC Tablet PO (10:45)
[2019-06-20] MEDS: isosorbide mononitrate ER 60 mg Tablet 120 MG PO (10:45)
[2019-06-20] MEDS: amlodipine 10 mg Tablet PO (10:45)
[2019-06-20] MEDS: sevelamer 800 mg Tablet PO ×2 (10:45→14:23)
[2019-06-20 12:02] LABS: Glucose Point of Care 108 mg/dL (70-110)
--- NOTE | 2019-06-20 12:12 | PM.DCS ---
Discharge Providers Date of Admission: 06/12/19 22:56 Date of Discharge: 06/20/19 Attending Provider at Admission: Agustín Fritz DO Attending Provider at Discharge: Yimi Pollack MD Consults: Podiatry: Dr. Lyle Vascular Surgery: Dr. Goode Diagnoses at Discharge Discharge Diagnosis (1) Osteomyelitis: Status: Acute (2) Renal failure: Status: Acute (3) Sepsis: Status: Acute (4) Diabetes: Status: Chronic (5) CHF (congestive heart failure): Status: Chronic (6) CAD (coronary artery disease): Status: Chronic (7) HTN (hypertension): Status: Chronic Reason for Visit Reason for Visit: Reason For Visit: OSTEOMYELITIS RIGHT CALCANEOUS Hospital Course Discharge Summary: Neel Austin is a 68 year old male with past medical history of ESRD on hemodialysis MWF, CHF, hypertension, COPD, DMII, severe peripheral vascular disease status post right BKA three years ago and severe peripheral vascular disease on the left, recently diagnosed osteomyelitis on antibiotics since a year who presented with left foot nonhealing ulcer. He has ESRD on HD and was initially confused on admission, but returned to baseline after his dialysis. He subsequently elected to undergo a Left BKA in spite of being offered salvage procedures including I&D, wound vac, bone biosy and directed [facility] as he believed a BKA would offer him better quality of life overall. He underwent this procedure on 06/15/18. There were no immediate krys op complications. HE tolerated procedure well. Post op course was notable for Transaminitis on labs now improving. Unclear cause. Right upper quadrant ultrasound shows liver is normal in appearance. Mild gallbladder wall thickening 3.6 mm however no pericholecystic fluid to suggest cholecystitis. CBD is normal. Physical Exam Narrative: EXAM NARRATIVE: General: Alert awake oriented HEENT: PERRLA, pupils bilaterally equal and reactive Chest: Normal vesicular breath sounds, no added sounds, equal good air entry bilaterally CVS: S1-S2 regular, no murmurs, no tachycardia, no gallops, no rubs Abdomen: Soft, nontender, no organomegaly, bowel sounds present Neuro: No focal deficits Ext: right BKA, left BKA, surgical wound healing well, sutures intact Discharge Data Data Completed and Pending: Completed Studies During Hospitalization Category Date Time Status XR chest 1V jada ble [id number] Routine Exams 06/14/19 17:41 Completed XR foot LT 2V 736 20 Routine Exams 06/13/19 14:09 Completed Pathology: Surgic al [PTH] Routine Pth 06/15/19 11:15 [place] [id number] Rout ine Ultrasound 06/13/19 14:11 Com[place] d [id number] Routine Ultrasound 06/17/19 09:23 Completed Pending at discharge Category Date Time Status C. DIFF BY PCR St at Lab 06/13/19 15:19 Uncollected Complete Blood Co unt w/Auto AM LABS Lab 06/21/19 04:00 Ordered Complete Blood Co unt w/Auto AM LABS Lab 06/22/19 04:00 Ordered Complete Blood Co unt w/Auto AM LABS Lab 06/23/19 04:00 Ordered Comprehensive Met abolic Panel AM LA BS Lab 06/21/19 04:00 Ordered Comprehensive Met abolic Panel AM LA BS Lab 06/22/19 04:00 Ordered Comprehensive Met abolic Panel AM LA BS Lab 06/23/19 04:00 Ordered Magnesium AM LABS Lab 06/21/19 04:00 Ordered Magnesium AM LABS Lab 06/22/19 04:00 Ordered Magnesium AM LABS Lab 06/23/19 04:00 Ordered Phosphorus AM LAB S Lab 06/21/19 04:00 Ordered Phosphorus AM LAB S Lab 06/22/19 04:00 Ordered Phosphorus AM LAB S Lab 06/23/19 04:00 Ordered Labs from last 24 hours 06/20/19 06/20/19 06/20/19 11:51 04:43 04:43 WBC 7.3 RBC 3.17 L Hgb 8.7 L Hct 28.6 L MCV 90.2 MCH 27.4 L MCHC 30.4 RDW 16.9 H Plt Count 234 MPV 10.8 H Neut % (Auto) 76.8 Lymph % (Auto) 7.9 [place] % (Auto) 11.5 Eos % (Auto) 3.1 Baso % (Auto) 0.3 Neut # (Auto) 5.6 Lymph # (Auto) 0.6 L [place] # (Auto) 0.8 Eos # (Auto) 0.2 Baso # (Auto) 0.0 Nucleated RBC % (a uto) 0 Nucleated RBCs # 0.0 Sodium 135 L Potassium 4.3 Chloride 95 L Carbon Dioxide 20 L Anion Gap 24.3 H BUN 56 H Creatinine 7.7 H* GFR Calculation 7.0 L Glucose 142 H POC Glucose 108 Calcium 9.0 Total Bilirubin 0.4 AST 23 ALT 100 H Alkaline Phosphata se 192 H Total Protein 6.8 Albumin 3.0 L Globulin 3.8 Crossmatch 06/19/19 06/19/19 06/14/19 20:42 17:10 18:49 WBC RBC Hgb Hct MCV MCH MCHC RDW Plt Count MPV Neut % (Auto) Lymph % (Auto) [place] % (Auto) Eos % (Auto) Baso % (Auto) Neut # (Auto) Lymph # (Auto) [place] # (Auto) Eos # (Auto) Baso # (Auto) Nucleated RBC % (a uto) Nucleated RBCs # Sodium Potassium Chloride Carbon Dioxide Anion Gap BUN Creatinine GFR Calculation Glucose POC Glucose 191 118 Calcium Total Bilirubin AST ALT Alkaline Phosphata se Total Protein Albumin Globulin Crossmatch See Detail Vitals: Last Vital Signs Temp 98.0 F 06/20/19 11:47 Pulse 94 06/20/19 11:47 Resp 18 06/20/19 11:47 BP 179/98 06/20/19 11:47 Pulse Ox 94 06/20/19 11:51 Discharge Plan Discharge Patient Disposition: Xfer SNF Condition: Stable Prescriptions: New hydrocodone-acetaminophen 5-325 mg Tablet 1 tab PO Q8H PRN (Reason: Moderate Pain) 10 Days Qty: 30 RF: 0 Continued Adult Low Dose Aspirin 81 mg Tablet,Delayed Release (Dr/Ec) 81 mg PO DAILY RF: 0 clopidogrel 75 mg Tablet 75 mg PO DAILY RF: 0 sevelamer HCl 800 mg Tablet 800 mg PO TID RF: 0 tramadol 50 mg Tablet 50 mg PO Q4H PRN (Reason: Pain) RF: 0 isosorbide mononitrate 120 mg Tablet Extended Release 24 Hr 120 mg PO DAILY RF: 0 pravastatin 80 mg Tablet 80 mg PO BEDTIME RF: 0 amlodipine 10 mg Tablet 10 mg PO DAILY RF: 0 naloxone 4 mg/actuation [place],Non-Aerosol 4 mg INTRANASAL UNK RF: 0 Discontinued levofloxacin 750 mg Tablet 750 mg PO DAILY RF: 0 Discharge Orders: Discharge Order (Routine); Ordered 06/18/19 Ordered By: Selin Tracey Other Ambulatory Orders: DME: Cane/ Crutches (Order) Location: None Selected Ordered By: Selin Tracey Referrals: Jonathan Goode MD [Physician] - 2 weeks Dany Temple Jr, MD [Staff Physician] - 2 weeks [facility] [Staff [facility]] - 1 week Discharge Diet: Cardiac and Diabetic Discharge Activity: Use walker/crutches as instructed Discharge Attestations Time Spent in Discharge Care*: less than 30 min Specific Discharge Activities: Specific discharge activities: educating patient and discussing with leather case finisher/social workers/dc planners Status at Discharge: Cognitive status at discharge: cognitively intact, Behavioral status at discharge: cooperative, Functional status at discharge: wheelchair bound Overall status at discharge: patient is back to baseline Quality Metrics Clinical Quality Measures During this hospital stay, did patient experience: None Coding Level of Care Code Acute Dog Or Horse Racing Official for g Fwd Diagnoses Osteomyelitis M86.9 Renal failure N19 Sepsis A41.9 Diabetes E11.9 CHF (congestive heart failure) I50.9 CAD (coronary artery disease) I25.10 HTN (hypertension) I10
--- NOTE | 2019-06-20 16:07 | PC.NURSE ---
Report called to Seth Grant LPN at [facility].
== END 2019-06-20 16:45 | disposition skilled nursing facility (03) | DRG 853 ==
LOC: ER 21:15 → MEDSURG 22:57
PROVIDERS: Internal Medicine Nephrology; Student in an Organized Health Care Education/Training Program; Thoracic Surgery (Cardiothoracic Vascular Surgery); Admitting Provider Internal Medicine; Emergency Provider Family Medicine; Visit Provider Student in an Organized Health Care Education/Training Program
PROC: 0Y6J0Z1 Detachment at Left Lower Leg, High, Open Approach (ICD-10-PCS; CPT 27880; principal; 2019-06-15 11:30)
DX: A41.9 Sepsis, unspecified organism (principal); N18.6 End stage renal disease; I13.2 Hypertensive heart and chronic kidney disease with heart failure and with stage 5 chronic kidney disease, or end stage renal disease; L97.426 Non-pressure chronic ulcer of left heel and midfoot with bone involvement without evidence of necrosis; M86.172 Other acute osteomyelitis, left ankle and foot; N17.9 Acute kidney failure, unspecified; I50.40 Unspecified combined systolic (congestive) and diastolic (congestive) heart failure; I25.10 Atherosclerotic heart disease of native coronary artery without angina pectoris; M10.9 Gout, unspecified; I70.25 Atherosclerosis of native arteries of other extremities with ulceration; I25.2 Old myocardial infarction; Z99.2 Dependence on renal dialysis; E11.69 Type 2 diabetes mellitus with other specified complication; E11.22 Type 2 diabetes mellitus with diabetic chronic kidney disease; J44.9 Chronic obstructive pulmonary disease, unspecified; E11.51 Type 2 diabetes mellitus with diabetic peripheral angiopathy without gangrene; Z89.511 Acquired absence of right leg below knee; Z89.422 Acquired absence of other left toe(s); D64.9 Anemia, unspecified; Z99.3 Dependence on wheelchair
CPT/HCPCS: 12345; 36415; 36416; 71045; 73620; 76705; 80048; 80053; 80202; 82962; 83036; 83540; 83550; 83605; 83735; 84100; 85014; 85018; 85025; 85651; 86140; 86704; 86803; 86850; 86900; 87040; 87340; 87641; 88307; 90935; 93926; 96372; 96374; 96375; 97110; 97162; 97165; 97530; 97535; 99221; 99282; J0696; J1644; J1815; J2001; J2270; J2370; J2543; J2704; J3010; J3370; J3490; J7030; J7050; P9016; Q3014

== ENCOUNTER 2019-07-15 12:59 | Emergency (ER) | payer OTHER, SELFPAY ==
--- NOTE | 2019-07-15 13:03 | ED_ITS ---
Entered by Nella Aleman, acting as scribe for Hardy Morales DO HPI - SOB/Dyspnea General: Chief Complaint: Shortness of Breath/Dyspnea Stated Complaint: PNEUMONIA Time Seen by Provider: 07/15/19 13:02 Source: patient and EMS Mode of arrival: EMS Limitations: no limitations History of Present Illness: HPI Narrative: 68 yo male presents with shortness of breath. pt states he was recently DX with pneumonia and he has had diarrhea for 5 days. pt wears 3L of oxygen at home. pt states he is on antibiotics for the pneumonia. pt denies any other symptoms at this time. EMS reports when they arrived to the senior living is not is on oxygen and was in the 80s when I applied the oxygen per nasal cannula sats recovered and has remained stable since then. MD elicited complaint: shortness of breath Onset (ago): day(s) (3-5 days) Context: recent illness (recently DX with pneumonia) Timing: progressively worsening Severity: moderate Exacerbating factors: coughing and deep breaths Relieving factors: nothing Associated symptoms: Reports cough; Deny chest pain, dizziness, extremity pain, fever(s), palpitations, polydipsia, polyuria or syncope Treatment prior to arrival: oxygen (EMS) Related Data: Home oxygen amount: 3 liters Review of Systems Const: Denies: fever, chills, body aches, fatigue, malaise or night sweats Eyes: Denies: change in vision or blurry vision ENMT: Denies: throat pain, oral sores/lesions, dental pain, nasal discharge or nasal congestion Card: Denies: chest pain, palpitations, irregular heart rhythm, edema or syncope Resp: Reports: non-productive cough and wheezing GI: Reports: diarrhea : Denies: flank pain, difficulty urinating, painful urination, urinary frequency, urinary urgency, urinary incontinence or blood in urine Musc: Denies: neck pain, back pain, extremity pain, extremity swelling, joint pain or joint swelling Skin/Breast: Denies: rash, itching or redness Neuro: Denies: headache, numbness in extremities, weakness in extremities, changes in sensation, lack of coordination, difficulty walking, frequent falls, dizziness, vertigo or confusion Psych: Denies: anxiety, depression, loss of interest, visual hallucinations, auditory hallucinations, suicidal ideation or homicidal ideation Endo: Denies: excessive urination, excessive thirst, tired all the time or cold intolerance [place]/Lymph: Denies: easy bruising, easy bleeding, petechiae, enlarged lymph nodes or tender lymph nodes PFSH ED PFSH: Social History Smoking and tobacco status: never smoked Physical Exam Const: COMMON NORMALS: average body habitus, oriented x3 and alert GENERAL APPEARANCE: cooperative, comfortable, well kempt and well developed NUTRITIONAL APPEARANCE: obese ORIENTATION/CONSCIOUSNESS: Yes awake, Yes oriented to person and Yes oriented to place HENMT: COMMON NORMALS: normocephalic, head/scalp atraumatic, EAC's normal, TM's normal bilaterally, external nose normal, moist oral mucous membranes and oropharynx normal HEAD & SCALP: normocephalic and atraumatic NOSE: external nose normal EXTERNAL AUDITORY CANAL: EAC's normal TYMPANIC MEMBRANE: TM's normal bilaterally MOUTH: oral and palatal mucosa normal, lip normal and tongue normal THROAT: posterior oropharynx normal and tonsils normal Eye: COMMON NORMALS: PERRL, EOMs intact bilaterally, conjunctivae normal and no scleral icterus CONJUNCTIVA: Yes conjunctivae normal PUPIL: Yes PERRL Neck/C-Spine: COMMON NORMALS: full ROM, no lymphadenopathy, supple, no meningeal signs and thyroid normal THYROID: thyroid normal and asymmetrical Lymph: LYMPHATIC: no lymphadenopathy noted Resp: AUSCULTATION: crackles (greater on the right than the left) and wheezes (mid) Cardio: COMMON NORMALS: regular rate and regular rhythm RATE: regular rate RHYTHM: regular rhythm HEART SOUNDS: no murmurs GI: COMMON NORMALS: normal to inspection, nondistended, normoactive bowel soun ds, soft to palpation and no hepatosplenomegaly PALPATION: Yes soft and Yes no hepatosplenomegaly : COMMON NORMALS: Yes no CVA tenderness BLADDER/KIDNEY EXAM: Yes no CVA tenderness Back/Pelvis: COMMON NORMALS: no CVA tenderness LUMBAR SPINE/LOWER BACK: Yes normal to inspection Extremity: COMMON NORMALS: no clubbing, cyanosis or edema and no calf tenderness OTHER: scar on L stump- no drainage, no skin breakdown, no infection Neuro: COMMON NORMALS: oriented x3 SENSORIUM/ORIENTATION: Yes alert, Yes oriented to person and Yes oriented to place MENINGEAL SIGNS: Yes no meningeal signs Psych: APPEARANCE: Yes well kempt Skin: COMMON NORMALS: no rashes or lesions noted and skin turgor normal GENERAL SKIN EXAM: no rashes or lesions noted and turgor normal Course ED course: X-ray and labs reviewed. Oxygen sats remained stable since he arrived here. His creatinine is per pretty much at his baseline. We will go and send him back to the senior living continue previously prescribed antibiotics Vital Signs: Vital signs: Vital Signs Pulse Rate 71 07/15/19 15:45 Respiratory Rate 18 07/15/19 15:45 Blood Pressure 154/79 07/15/19 15:45 Pulse Oximetry 97 07/15/19 15:45 MDM - SOB/Dyspnea Lab Data: Labs: Lab Results 07/15/19 07/15/19 Range/Units 12:52 12:52 WBC 4.0 (4.0-10.0) 10^3/ uL RBC 3.72 L (4.1-5.3) 10^6/u L Hgb 10.0 L (11.7-16.6) g/dL Hct 33.5 L (42.0-52.0) % MCV 90.1 (80-94) fL MCH 26.9 L (28.0-34.0) pg MCHC 29.9 L (30.0-36.0) g/dL RDW 15.9 H (12.1-15.1) % Plt Count 204 (130-400) 10^3/c mm MPV 10.5 H (7.4-10.4) fL Neut % (Auto) 68.9 % Lymph % (Auto) 10.3 % [place] % (Auto) 14.5 % Eos % (Auto) 5.3 % Baso % (Auto) 1.0 % Neut # (Auto) 2.8 (1.8-7.7) 10^3/u L Lymph # (Auto) 0.4 L (0.8-4.8) 10^3/u L [place] # (Auto) 0.6 (0.2-0.9) 10^3/u L Eos # (Auto) 0.2 (0.0-0.8) 10^3/u L Baso # (Auto) 0.0 (0.0-0.1) 10^3/u L Nucleated RBC % (a uto) 0 % Nucleated RBCs # 0.0 /100WBC Sodium 137 (136-145) mmol/L Potassium 3.2 L (3.5-5.1) mmol/L Chloride 92 L (98-107) mmol/L Carbon Dioxide 30 H (22-29) mmol/L Anion Gap 18.2 (5-19) BUN 9 (8-23) mg/dL Creatinine 2.9 H (0.7-1.2) mg/dL GFR Calculation 21.7 L (90-130) mL/min Glucose 73 (65-115) mg/dL Calcium 9.2 (8.5-10.5) mg/dL Total Bilirubin 0.6 (0.15-1.2) mg/dL AST 16 (0-40) U/L ALT 6 (0-41) U/L Alkaline Phosphata se 144 H (40-130) IU/L Total Protein 7.4 (6.6-8.7) g/dL Albumin 3.6 (3.5-5.2) g/dL Globulin 3.8 (1.3-4.6) g/dL Imaging Data^: CXR: Radiologist's impression: [place] [address] XRay Report Signed Patient: Neel Austin #: [id number] : 1950Acct#:[id number] Age/Sex: 68 / MADM Date: 07/15/19 [facility] Attending Dr: Ordering Provider/Ordering MD: Hardy Morales DO Date of Service: 07/15/19 Procedure(s): XR chest 1V portable [id number] Accession Number(s): [id number] Report Number: [id number] WS: [id number] Portable AP upright chest, 07/15/2019 Clinical Data: dyspnea/cough Comparison: Portable chest, 06/14/2019 Findings: The dialysis catheter remains in same position. The pulmonary vascularity is increased. There are bilateral effusions. The heart remains enlarged. No nodules, masses or effusions are seen. XR/XR chest 1V portable [id number] Impression: 1. Increase in pulmonary vascular congestion with bilateral pleural effusions. 2. No change in cardiomegaly. Dictated By:Ele Mccarthy MD Signed By:Ele Mccarthy MDSigned Date/Time:07/15/19 1335 Discharge Plan Discharge Patient Disposition: [facility] Clinical Impression: COPD (chronic obstructive pulmonary disease), Hypoxia, Chronic kidney disease Condition: Stable Prescriptions: No Action Adult Low Dose Aspirin 81 mg Tablet,Delayed Release (Dr/Ec) 81 mg PO DAILY RF: 0 clopidogrel 75 mg Tablet 75 mg PO DAILY RF: 0 sevelamer HCl 800 mg Tablet 800 mg PO TID RF: 0 tramadol 50 mg Tablet 50 mg PO Q4H PRN (Reason: Pain) RF: 0 isosorbide mononitrate 120 mg Tablet Extended Release 24 Hr 120 mg PO DAILY RF: 0 pravastatin 80 mg Tablet 80 mg PO BEDTIME RF: 0 amlodipine 10 mg Tablet 10 mg PO DAILY RF: 0 naloxone 4 mg/actuation [place],Non-Aerosol 4 mg INTRANASAL UNK RF: 0 Discharge Orders: Discharge Order (Routine); Ordered 07/15/19 Ordered By: Hardy Morales Discharge Diet: Usual diet Discharge Activity: Resume usual activity Activity Restrictions/Additional Instructions: Continue current medications as previously prescribed by attending physician Discharge Date/Time: 07/15/19 16:22 Coding Level of Care Code ED Radiation Therapy Technologist for Chg Fwd Exam Problem Focused The documentation recorded by the Ash hennessy Bridget Annette, accurately reflects the service I personally performed and the decisions made by Andrew bee Curtis L, DO Jul 15, 2019 12:59
--- NOTE | 2019-07-15 13:12 | XR_ITS ---
WS: [id number] Portable AP upright chest, 07/15/2019 Clinical Data: dyspnea/cough Comparison: Portable chest, 06/14/2019 Findings: The dialysis catheter remains in same position. The pulmonary vascularity is increased. The re are bilateral effusions. The heart remains enlarged. No nodules, masses or effusions are seen. XR/XR chest 1V portable [id number] Impression: 1. Increase in pulmonary vascular congestion with bilateral pleural effusions. 2. No change in cardiomegaly.
[2019-07-15 13:20] VITALS: BP 149/79; PULSE 73; RESP 18; O2SAT 99; BMI 31.2
[2019-07-15 13:24] LABS: Eosinophils # 0.2 10^3/uL (0.0-0.8); Eosinophils % 5.3 %; Hematocrit 33.5 % (42.0-52.0); Lymphocytes # 0.4 10^3/uL (0.8-4.8); Lymphocytes % 10.3 %; Mean Corpuscular HGB Conc 29.9 g/dL (30.0-36.0); Mean Corpuscular Hemoglobin 26.9 pg (28.0-34.0); Mean Corpuscular Volume 90.1 fL (80-94); Mean Platelet Volume 10.5 fL (7.4-10.4); Monocytes # 0.6 10^3/uL (0.2-0.9); Monocytes % 14.5 %; Neutrophils # 2.8 10^3/uL (1.8-7.7); Neutrophils % 68.9 %; Nucleated Red Blood Cells % 0 %; Platelet Count 204 10^3/cmm (130-400); Red Blood Count 3.72 10^6/uL (4.1-5.3); Red Cell Distribution Width 15.9 % (12.1-15.1)
--- NOTE | 2019-07-15 13:25 | PC.NURSE ---
Patient is a bilateral below the knee amputee. Left is most recent and is still healing. Incision edges are approximated with scabbing noted and pinkness and warmth to the surrounding area. Scabbing/abrasions noted to the left knee.
[2019-07-15 13:39] LABS: Alanine Aminotransferase 6 U/L (0-41); Albumin Level 3.6 g/dL (3.5-5.2); Alkaline Phosphatase 144 IU/L (40-130); Anion Gap 18.2 (5-19); Aspartate Amino Transferase 16 U/L (0-40); Blood Urea Nitrogen 9 mg/dL (8-23); Calcium 9.2 mg/dL (8.5-10.5); Carbon Dioxide 30 mmol/L (22-29); Chloride 92 mmol/L (98-107); Globulin 3.8 g/dL (1.3-4.6); Glomerular Filtration Rate 21.7 mL/min (90-130); Glucose 73 mg/dL (65-115); Potassium 3.2 mmol/L (3.5-5.1); Sodium 137 mmol/L (136-145); Total Bilirubin 0.6 mg/dL (0.15-1.2); Total Protein 7.4 g/dL (6.6-8.7)
[2019-07-15] MEDS: FUROsemide 10 mg/mL SDV 4mL 40 MG IVP (13:47)
[2019-07-15] MEDS: potassium chloride oral liq 20 mEq/15 mL UDC 60 MEQ PO (15:13)
[2019-07-15 15:45] VITALS: BP 154/79; PULSE 71; RESP 18; O2SAT 97
== END 2019-07-15 16:22 | disposition skilled nursing facility (03) ==
PROVIDERS: Emergency Provider Family Medicine
DX: J44.9 Chronic obstructive pulmonary disease, unspecified (principal); R09.02 Hypoxemia; N18.9 Chronic kidney disease, unspecified; Z99.81 Dependence on supplemental oxygen; Z99.2 Dependence on renal dialysis
CPT/HCPCS: 71045; 80053; 85025; 96374; 96375; 99282; 99283; J1940

== ENCOUNTER 2019-07-19 14:15 | Emergency (ER) | payer OTHER, SELFPAY ==
[2019-07-19] VITALS (7 sets, daily range): BP systolic 138–152; BP diastolic 62–91; PULSE 68–77; RESP 18–24; TEMP 36.6; O2SAT 94–100; BMI 27.1
--- NOTE | 2019-07-19 14:36 | XR_ITS ---
WS: [id number] XR chest 1V portable [id number] REASON FOR EXAM: hypoxia FINDINGS: Atelectasis in the right middle lobe. A catheter is seen extending from the right side in good position. There is cardiomegaly seen. There is less congestion off the right hilum than previous exam. Comparisons were made to July 15, 2019. XR/XR chest 1V portable [id number] IMPRESSION: Atelectasis off the right middle lobe with thickening of the minor fissure. Cardiomegaly Central line extends from the right side a triple-lumen catheter.
--- NOTE | 2019-07-19 14:36 | CT_ITS ---
WS: [id number] CT HEAD NONCONTRAST HISTORY: confusion TECHNIQUE: Contiguous axial imaging performed through the brain in 2.5 mm imaging. Bone and soft tiss ue windows. Sagittal and coronal reformats reviewed. All CT scans at [facility] use at le ast one of these dose optimization techniques: automated exposure control; mA and/or kV adjustment pe r patient size (includes targeted exams where dose is matched to clinical indication); or iterative r econstruction. DLP: 768.27 mGy.cm COMPARISON: 06/10/2018 No acute intracranial hemorrhage, midline shift or mass effect. Mild atrophy and mild chronic microvascular ischemic disease. Ventricles: Normal size with no hydrocephalus. No inferior displacement of the cerebellar tonsils. Paranasal sinuses: As visualized are clear. Mastoid air cells: Fluid in the mastoid air cells bilaterally, RIGHT greater than LEFT. There is also increased soft tissue extending into the RIGHT inner ear. Calvarium and scalp: No fracture. There is calcification within the scalp which has been present on p rior studies. Additional scattered calcifications within the intracranial carotid arteries. CT/CT head wo con* [id number] IMPRESSION: 1. No acute intracranial hemorrhage. 2. Mild atrophy and moderate chronic microvascular ischemic disease. 3. Effusions in the mastoid air cells bilaterally, RIGHT greater than LEFT wit h extension into the RIGHT inner ear.
--- NOTE | 2019-07-19 14:37 | ECG_ITS ---
Measurements Intervals [place] Rate: 71 P: 21 MO: 191 QRS: 16 QRSD: 133 T: 72 QT: 445 QTc: 484 SINUS RHYTHM WITH FREQUENT VENTRICULAR PREMATURE COMPLEXES IN A BIGEMINAL PATTERN INTRAVENTRICULAR CONDUCTION DELAY [130+ ms QRS DURATION] INFERIOR MYOCARDIAL INFARCTION , PROBABLY OLD [40+ ms Q WAVE AND/OR ST/T ABN ABNORMALITY IN II/aVF] Compared to ECG 07/19/2018 22:44:43 Ventricular premature complex(es) now present Myocardial infarct finding still present Electronically Signed On 07-19-2019 16:55:58 PILING CUTTER by Heather King M.D. [email or web address]
[2019-07-19 14:54] LABS: Basophils % 0.8 %; Eosinophils # 0.2 10^3/uL (0.0-0.8); Eosinophils % 3.5 %; Hematocrit 34.1 % (42.0-52.0); Hemoglobin 9.9 g/dL (11.7-16.6); Lymphocytes # 0.5 10^3/uL (0.8-4.8); Lymphocytes % 9.1 %; Mean Corpuscular Volume 92.9 fL (80-94); Mean Platelet Volume 10.4 fL (7.4-10.4); Monocytes # 0.5 10^3/uL (0.2-0.9); Monocytes % 10.8 %; Neutrophils # 3.7 10^3/uL (1.8-7.7); Neutrophils % 75.6 %; Nucleated Red Blood Cells % 0 %; Platelet Count 184 10^3/cmm (130-400); Red Blood Count 3.67 10^6/uL (4.1-5.3); Red Cell Distribution Width 15.8 % (12.1-15.1); White Blood Count 4.9 10^3/uL (4.0-10.0)
[2019-07-19 15:05] LABS: D Dimer 1.25 ug/mIFEU (0-0.59)
[2019-07-19 15:11] LABS: Alanine Aminotransferase < 5 U/L (0-41); Albumin Level 3.6 g/dL (3.5-5.2); Alkaline Phosphatase 163 IU/L (40-130); Aspartate Amino Transferase 12 U/L (0-40); Blood Urea Nitrogen 17 mg/dL (8-23); C Reactive Protein 44.7 mg/L (0.0-4.9); Calcium 9.5 mg/dL (8.5-10.5); Carbon Dioxide 31 mmol/L (22-29); Chloride 93 mmol/L (98-107); Globulin 4.1 g/dL (1.3-4.6); Glomerular Filtration Rate 12.1 mL/min (90-130); Glucose 89 mg/dL (65-115); Sodium 137 mmol/L (136-145); Total Bilirubin 0.5 mg/dL (0.15-1.2); Total Protein 7.7 g/dL (6.6-8.7)
[2019-07-19 15:13] LABS: Lactate (Lactic Acid level) 1.5 mmol/L (0.5-2.2)
--- NOTE | 2019-07-19 15:50 | W.ED.AMS ---
HPI - Altered Mental Status General: Chief Complaint: Altered Mental Status Stated Complaint: HALLUNATIONS Time Seen by Provider: 07/19/19 14:27 History of Present Illness: HPI narrative: The patient is a 68-year-old gentleman with a history of coronary artery disease, congestive heart failure, diabetes, osteomyelitis status post left below-knee amputations. He is currently in in a long-term facility for rehabilitation. According to the report I obtained from EMS, the prison stated that the patient was hallucinating today. When EMS arrived the patient was saturating in the 60s, and they turned his oxygen up from 2 L to 15 L and he then became lucid and was not hallucinating again. According to the EMS when he turned his oxygen back down again the patient became confused and altered. The patient states that prison stenting here to cover up something bad that they did. When asked what what it was, he declined to tell me as he said he did not want to talk about it. He said they are trying to say I am crazy Associated symptoms: Reports visual hallucinations (says he saw lots of spiders on his wall in his room at the [facility]) Review of Systems General: Reports: 10 or more systems reviewed and unremarkable except in HPI and below Const: Denies: fever, chills or body aches Eyes: Denies: change in vision or blurry vision ENMT: Denies: throat pain, enlarged tonsils, painful swallowing, hoarseness, mouth pain or swelling of lips/tongue Card: Reports: chest pain; Denies: palpitations, irregular heart rhythm, edema or swelling of feet/ankles Resp: Denies: shortness of breath, productive cough or non-productive cough GI: Denies: abdominal pain, nausea or vomiting : Denies: flank pain, painful urination, urinary frequency, urinary urgency or urinary hesitancy Musc: Denies: neck pain, back pain or extremity swelling Skin/Breast: Denies: rash, itching or redness Neuro: Denies: headache, numbness in extremities or weakness in extremities Psych: Reports: mood swings and visual hallucinations (says he saw lots of spiders on his wall in his room at the [facility]) Endo: Denies: excessive urination, excessive thirst or tired all the time PFS ED PFSH: Social History Smoking and tobacco status: never smoked Physical Exam Const: COMMON NORMALS: no apparent distress, average body habitus, oriented x3, no limitations, healthy appearing, alert and well nourished HENMT: COMMON NORMALS: normocephalic, head/scalp atraumatic and moist oral mucous membranes HEAD & SCALP: normocephalic and atraumatic Eye: COMMON NORMALS: PERRL, EOMs intact bilaterally, conjunctivae normal and no scleral icterus CONJUNCTIVA: Yes conjunctivae normal PUPIL: Yes PERRL Neck/C-Spine: COMMON NORMALS: full ROM, supple, no meningeal signs, no JVD and no carotid bruits Chest: COMMONS NORMALS: inspection of chest normal and palpation of chest normal Resp: COMMON NORMALS: normal respiratory effort, no retractions, no use of accessory muscles, clear to auscultation bilaterally and percussion normal AUSCULTATION: clear to auscultation bilaterally PERCUSSION: percussion normal Cardio: COMMON NORMALS: no JVD, regular rate, regular rhythm, S1 normal heart sound, S2 normal heart sound, no gallops, no clicks, no rub and peripheral pulses 2+ throughout RATE: regular rate RHYTHM: regular rhythm HEART SOUNDS: S1 normal, S2 normal and murmur PERIPHERAL PULSES: pulses 2+ throughout GI: COMMON NORMALS: normal to inspection, nondistended, normoactive bowel sounds, soft to palpation, non-tender, no hepatosplenomegaly, no masses and no bruits PALPATION: Yes soft and Yes no hepatosplenomegaly : COMMON NORMALS: Yes no CVA tenderness BLADDER/KIDNEY EXAM: Yes no CVA tenderness Back/Pelvis: COMMON NORMALS: no CVA tenderness Extremity: COMMON NORMALS: full ROM, normal capillary refill, no calf tenderness and no pedal edema NARRATIVE EXTREMITY EXAM: Bilateral below-knee amputation. Left below-knee amputation with wound dressing on it. Neuro: COMMON NORMALS: oriented x3 SENSORIUM/ORIENTATION: Yes alert MENINGEAL SIGNS: Yes no meningeal signs Skin: COMMON NORMALS: no rashes or lesions noted, no wounds, skin turgor normal, no jaundice, no petechiae and no mottling GENERAL SKIN EXAM: no rashes or lesions noted and turgor normal Course Vital Signs: Vital signs: Vital Signs Temperature 97.9 F 02/ 14:22 Pulse Rate 73 02/18/20 19:24 Respiratory Rate 18 07/19/19 19:24 Blood Pressure 152/91 07/19/19 19:24 Pulse Oximetry 98 07/19/19 19:24 MDM - Altered Mental Status MDM Narrative: Medical decision making narrative: 68-year-old gentleman who is in a long-term facility status post left below-knee amputation presented to the emergency department with concerns for hallucination. According to the prison staff the patient was seen spiders that were not there, patient did tell me that he was seeing spiders in his room. Evaluation in the emergency department was unremarkable. He is not suicidal or homicidal. He is therefore discharged back to the prison with no new orders. Medical Records: Attestation: I reviewed the patient's medical records. Lab Data: Attestation: I reviewed the patient's lab results. Labs: Lab Results 07/19/19 07/19/19 07/19/19 Range/Units 14:47 14:47 14:47 WBC 4.9 (4.0-10.0) 10^3/ uL RBC 3.67 L (4.1-5.3) 10^6/u L Hgb 9.9 L (11.7-16.6) g/dL Hct 34.1 L (42.0-52.0) % MCV 92.9 (80-94) fL MCH 27.0 L (28.0-34.0) pg MCHC 29.0 L (30.0-36.0) g/dL RDW 15.8 H (12.1-15.1) % Plt Count 184 (130-400) 10^3/c mm MPV 10.4 (7.4-10.4) fL Neut % (Auto) 75.6 % Lymph % (Auto) 9.1 % [place] % (Auto) 10.8 % Eos % (Auto) 3.5 % Baso % (Auto) 0.8 % Neut # (Auto) 3.7 (1.8-7.7) 10^3/u L Lymph # (Auto) 0.5 L (0.8-4.8) 10^3/u L [place] # (Auto) 0.5 (0.2-0.9) 10^3/u L Eos # (Auto) 0.2 (0.0-0.8) 10^3/u L Baso # (Auto) 0.0 (0.0-0.1) 10^3/u L Nucleated RBC % (a uto) 0 % Nucleated RBCs # 0.0 /100WBC D-Dimer 1.25 H (0-0.59) ug/mIFE U Sodium 137 (136-145) mmol/L Potassium 4.0 (3.5-5.1) mmol/L Chloride 93 L (98-107) mmol/L Carbon Dioxide 31 H (22-29) mmol/L Anion Gap 17.0 (5-19) BUN 17 (8-23) mg/dL Creatinine 4.8 H (0.7-1.2) mg/dL GFR Calculation 12.1 L (90-130) mL/min Glucose 89 (65-115) mg/dL Lactate (0.5-2.2) mmol/L Calcium 9.5 (8.5-10.5) mg/dL Total Bilirubin 0.5 (0.15-1.2) mg/dL AST 12 (0-40) U/L ALT < 5 (0-41) U/L Alkaline Phosphata se 163 H (40-130) IU/L C-Reactive Protein 44.7 H (0.0-4.9) mg/L Total Protein 7.7 (6.6-8.7) g/dL Albumin 3.6 (3.5-5.2) g/dL Globulin 4.1 (1.3-4.6) g/dL 07/19/19 Range/Units 14:47 WBC (4.0-10.0) 10^3/ uL RBC (4.1-5.3) 10^6/u L Hgb (11.7-16.6) g/dL Hct (42.0-52.0) % MCV (80-94) fL MCH (28.0-34.0) pg MCHC (30.0-36.0) g/dL RDW (12.1-15.1) % Plt Count (130-400) 10^3/c mm MPV (7.4-10.4) fL Neut % (Auto) % Lymph % (Auto) % [place] % (Auto) % Eos % (Auto) % Baso % (Auto) % Neut # (Auto) (1.8-7.7) 10^3/u L Lymph # (Auto) (0.8-4.8) 10^3/u L [place] # (Auto) (0.2-0.9) 10^3/u L Eos # (Auto) (0.0-0.8) 10^3/u L Baso # (Auto) (0.0-0.1) 10^3/u L Nucleated RBC % (a uto) % Nucleated RBCs # /100WBC D-Dimer (0-0.59) ug/mIFE U Sodium (136-145) mmol/L Potassium (3.5-5.1) mmol/L Chloride (98-107) mmol/L Carbon Dioxide (22-29) mmol/L Anion Gap (5-19) BUN (8-23) mg/dL Creatinine (0.7-1.2) mg/dL GFR Calculation (90-130) mL/min Glucose (65-115) mg/dL Lactate 1.5 (0.5-2.2) mmol/L Calcium (8.5-10.5) mg/dL Total Bilirubin (0.15-1.2) mg/dL AST (0-40) U/L ALT (0-41) U/L Alkaline Phosphata se (40-130) IU/L C-Reactive Protein (0.0-4.9) mg/L Total Protein (6.6-8.7) g/dL Albumin (3.5-5.2) g/dL Globulin (1.3-4.6) g/dL Imaging Data^: CXR: Radiologist's impression: [address] [address] XRay Report Signed Patient: Neel Austin #: [id number] : 1950Acct#:[id number] Age/Sex: 68 / MADM Date: 07/19/19 Loc: ERRoom/Bed: Attending Dr: Ordering Provider/Ordering MD: Jethro Pinto MD, [facility] [place] Date of Service: 07/19/19 Procedure(s): XR chest 1V portable [id number] Accession Number(s): [id number] Report Number: [id number] WS: [id number] XR chest 1V portable [id number] REASON FOR EXAM: hypoxia FINDINGS: Atelectasis in the right middle lobe. A catheter is seen extending from the right side in good position. There is cardiomegaly seen. There is less congestion off the right hilum than previous exam. Comparisons were made to July 15, 2019. XR/XR chest 1V portable [id number] IMPRESSION: Atelectasis off the right middle lobe with thickening of the minor fissure. Cardiomegaly Central line extends from the right side a triple-lumen catheter. Dictated By:Ashwin Sahni DO Signed By:Ashwin Sahni DOSigned Date/Time Other Imaging: Radiologist's impression: [place] [address] Nuclear Medicine Report Signed Patient: Neel Austin #: [id number] : 1950Acct#:[id number] Age/Sex: 68 / MADM Date: 07/19/19 Loc: ERRoom/Bed: Attending Dr: Ordering Provider/Ordering MD: Jethro Pinto MD, [facility] [place] Date of Service: 07/19/19 Procedure(s): NM pul vent and perfus* [id number] Accession Number(s): [id number] Report Number: [id number] PROCEDURE INFORMATION: Exam: NM Lung Ventilation and Perfusion Imaging Exam date and time: 07/19/2019 4:04 PM Age: 68 years old Clinical indication: Shortness of breath; Patient HX: Hypoxia, copd, SOB, fatigue; Additional info: Hypoxia, end-stage renal disease TECHNIQUE: Imaging protocol: Nuclear pulmonary ventilation with aerosol was performed followed by perfusion. Views: Ventilation acquired with multiple projections. Perfusion acquired with multiple projections. Radiopharmaceutical: 31.5 mCi of Tc-99m DTPA, inhaled. 5.1 mCi of Tc-99m MAA, IV. COMPARISON: CR XR chest 1V portable [id number] 07/19/2019 2:57 PM FINDINGS: Ventilation: Mild central clumping of radionuclide tracheobronchial tree on ventilation images. Perfusion: Similar smaller perfusion/ventilation defect in the region of the right major fissure corresponding with chest x-ray. No segmental perfusion defects consistent with low probability for pulmonary embolus. Other findings: Prominent triangular shaped atelectasis or fluid within a fissure extending laterally from the right hilum on chest x-ray. NM/NM pul vent and perfus* [id number] IMPRESSION: 1. Prominent triangular shaped atelectasis or fluid within a fissure extending laterally from the right hilum on chest x-ray. 2. Similar smaller perfusion/ventilation defect in the region of the right major fissure corresponding with chest x-ray. 3. Mild central clumping of radionuclide tracheobronchial tree on ventilation images. 4. No segmental perfusion defects consistent with low probability for pulmonary embolus. Dictated By:George Daley MD Signed By:George Daleyigned Date/Time:07/19/19 184 EKG Data^: EKG 1: Attestation: I personally reviewed and interpreted this EKG as follows: EKG interpretation date: 07/19/19 EKG interpretation time: 14:28 Prior EKG tracings: not available for review Interpretation: Sinus rhythm with PVCs. Heart rate 71 bpm. Intraventricular conduction delay. Discharge Plan Discharge Patient Disposition: Rehab Fac w Plan Readm Clinical Impression: Hallucinations, visual Condition: Stable Prescriptions: Continued Adult Low Dose Aspirin 81 mg Tablet,Delayed Release (Dr/Ec) 81 mg PO DAILY RF: 0 clopidogrel 75 mg Tablet 75 mg PO DAILY RF: 0 sevelamer HCl 800 mg Tablet 800 mg PO TID RF: 0 tramadol 50 mg Tablet 50 mg PO Q4H PRN (Reason: Pain) RF: 0 isosorbide mononitrate 120 mg Tablet Extended Release 24 Hr 120 mg PO DAILY RF: 0 pravastatin 80 mg Tablet 80 mg PO BEDTIME RF: 0 amlodipine 10 mg Tablet 10 mg PO DAILY RF: 0 naloxone 4 mg/actuation [place],Non-Aerosol 4 mg INTRANASAL UNK RF: 0 Discharge Orders: Discharge Order (Routine); Ordered 07/19/19 Ordered By: Jethro Pinto Activity Restrictions/Additional Instructions: Return for any new or worsening symptoms. 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
--- NOTE | 2019-07-19 16:03 | NMR_ITS ---
PROCEDURE INFORMATION: Exam: CT Lung Ventilation and Perfusion Imaging Exam date and time: 07/19/2019 4:04 PM Age: 68 years old Clinical indication: Shortness of breath; Patient HX: Hypoxia, copd, SOB, fatigue; Additional info: Hypoxia, end-stage renal disease TECHNIQUE: Imaging protocol: Nuclear pulmonary ventilation with aerosol was performed followed by perfusion. Views: Ventilation acquired with multiple projections. Perfusion acquired with multiple projections. Radiopharmaceutical: 31.5 mCi of Tc-99m DTPA, inhaled. 5.1 mCi of Tc-99m MAA, IV. COMPARISON: CR XR chest 1V portable [id number] 07/19/2019 2:57 PM FINDINGS: Ventilation: Mild central clumping of radionuclide tracheobronchial tree on ventilation images. Perfusion: Similar smaller perfusion/ventilation defect in the region of the right major fissure corresponding with chest x-ray. No segmental perfusion defects consistent with low probability for pulmonary embolus. Other findings: Prominent triangular shaped atelectasis or fluid within a fissure extending laterally from the right hilum on chest x-ray. CT/CT pul vent and perfus* [id number] IMPRESSION: 1. Prominent triangular shaped atelectasis or fluid within a fissure extending laterally from the right hilum on chest x-ray. 2. Similar smaller perfusion/ventilation defect in the region of the right major fissure corresponding with chest x-ray. 3. Mild central clumping of radionuclide tracheobronchial tree on ventilation images. 4. No segmental perfusion defects consistent with low probability for pulmonary embolus.
--- NOTE | 2019-07-19 18:22 | PC.NURSE ---
Patient calling for patient update. Updated on plan of care. Expressing concerns regarding patient returning to facility.
== END 2019-07-19 21:45 ==
PROVIDERS: Emergency Provider Family Medicine
DX: R44.1 Visual hallucinations (principal); I25.10 Atherosclerotic heart disease of native coronary artery without angina pectoris; I50.9 Heart failure, unspecified; E11.9 Type 2 diabetes mellitus without complications; Z89.512 Acquired absence of left leg below knee; Z99.81 Dependence on supplemental oxygen
CPT/HCPCS: 36415; 70450; 71045; 78014; 80053; 83605; 85025; 85378; 86140; 87040; 93005; 99282; 99285; A9540; A9567

== ENCOUNTER 2019-08-03 11:29 | Observation (INO) | payer OTHER, SELFPAY ==
[2019-08-03] VITALS (10 sets, daily range): BP systolic 162–218; BP diastolic 83–92; PULSE 66–84; RESP 16–20; TEMP 36.5–37; O2SAT 93–99
--- NOTE | 2019-08-03 11:43 | ED_ITS ---
Entered by Sherry Nick, acting as scribe for Ileana Vicente MD HPI - Psych General: Chief Complaint: Psychiatric Symptoms Stated Complaint: PSYCH EVAL Time Seen by Provider: 08/03/19 11:35 Source: patient Mode of arrival: EMS Limitations: no limitations History of Present Illness: HPI Narrative: 68 yo Male presents to ED with complaint of psychiatric symptoms. Pt states that he is here because he is going home from that [facility]. Pt states that the half-way is like a m[facility]. Pt states that his tailbone hurts. Denies hallucinations denies being suicidal or homicidal. RN states that half-way sent him here for medical clearance [facility] at the [facility]way. complaint: other (psychiatric evaluation) Onset (ago): day(s) Duration: intermittent History of same: Yes Relieving factors: none Exacerbating factors: none Associated symptoms: Deny homicidal ideation or suicidal ideation Treatments prior to arrival: none Review of Systems General: Reports: 10 or more systems reviewed and unremarkable except in HPI and below Const: Denies: fever or chills Eyes: Denies: change in vision ENMT: Denies: throat pain Card: Denies: chest pain Resp: Denies: shortness of breath GI: Denies: abdominal pain, nausea, vomiting or change in bowel habits Musc: Denies: muscle weakness Skin/Breast: Denies: rash Neuro: Denies: headache Psych: Denies: hopelessness, suicidal ideation or homicidal ideation Endo: Denies: excessive urination Segundo/Lymph: Denies: easy bruising or easy bleeding All/Imm: Denies: hives PFS ED PFSH: Medical History CAD (coronary artery disease) CHF (congestive heart failure) CVA (cerebral vascular accident) Diabetes Gout HTN (hypertension) Hyperkalemia Myocardial infarction Osteomyelitis Pneumonia Renal failure Sickle cell disease Surgical History 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 I asked if he had spaghetti today for lunch he tells me he did not have lunch. I asked when his shirt was last changed and he tells me a couple of days ago. HENMT: COMMON NORMALS: normocephalic and external nose normal HEAD & SCALP: normocephalic NOSE: external nose normal MOUTH: no trismus Eye: COMMON NORMALS: EOMs intact bilaterally and conjunctivae normal CONJUNCTIVA: Yes conjunctivae normal Neck/C-Spine: COMMON NORMALS: full ROM, no lymphadenopathy and supple CERVICAL SPINE: Yes cervical ROM normal Lymph: LYMPHATIC: no lymphadenopathy noted Resp: COMMON NORMALS: normal respiratory effort, no retractions, no use of accessory muscles and clear to auscultation bilaterally EFFORT & INSPECTION: Yes able to speak in complete sentences AUSCULTATION: clear to auscultation bilaterally Cardio: COMMON NORMALS: regular rate and regular rhythm RATE: regular rate RHYTHM: regular rhythm GI: COMMON NORMALS: normal to inspection, nondistended, normoactive bowel sounds, soft to palpation, non-tender and no masses INSPECTION: Yes normal to inspection AUSCULTATION: Yes normoactive bowel sounds PALPATION: Yes soft, No guarding and No rigid Back/Pelvis: OTHER: Normal range of motion Extremity: GENERAL: Yes normal exam except as noted Neuro: MARCIA COMA SCALE: other (gcs 15) COMMON NORMALS: CN's II-XII intact bilaterally SENSORIUM/ORIENTATION: Yes alert and Yes oriented to person SPEECH: speech normal Psych: COMMON NORMALS: mental status grossly normal and speech normal APPEARANCE: No well kempt (Pt has food all over his shirt and states he hasn't eaten today) SPEECH: Yes normal speech INSIGHT: fair OTHER: This patient is calm answers all my questions and is cooperative have not witnessed any outbursts yet. Will obtain some labs and urine on him and medically clear to be consented back to the half-way unless something else develops while he is here that necessitates him needing to be transferred to a psychiatric fac ility. Skin: COMMON NORMALS: no rashes or lesions noted GENERAL SKIN EXAM: no rashes or lesions noted MDM - Psych MDM Narrative: Medical decision making narrative: RN just reported to me that she spoke with this patient's who was not happy that the half-way sent him here. The told her that he was sent to [place] for a psychiatric evaluation last week and was ultimately released and told that he had dementia. Patient still is not exhibiting any symptoms that I would need to emergently transfer him against his will to a psychiatric facility. When his urine is back if it is within normal limits will be able to dispel back to the half-way. pt has not displayed any SI, HI, anger, outbursts, not hallucinating. have been working with family welfare social work professor and spent ore htan 30 minutes on the social aspect of this. [facility] and [facility]. She has also spoken with I[facility] the [facility] advocate about all this. pt has a mild uti which could be contaminant. To be on safe side will start on macrobid. He is medically stable. Can return to [place]. Have spent most of the day working on dispo of this patient. Our behavioral health case manager has been in touch with the [place] shank cementer hand and that [facility] sh[facility] hand whose name is Fatoumata will be working to try to find a different half-way to place this patient in tomorrow. There is no safe place for this patient to go at this point since the half-way refuses to take him back. Will put in observation overnight here. Discussed with Dr. Lin the hospitalist who will come down and see the patient. This patient has also been assessed by our psychiatrist Dr. Waddell and please refer to his note but he found no reason for this patient to be transferred to a psych facility he was alert and oriented and appropriate with him. Lab Data: Labs: Lab Results 08/03/19 08/03/19 08/03/19 Range/Units 12:07 12:07 13:53 WBC 4.8 (4.0-10.0) 10^3/ uL RBC 4.26 (4.1-5.3) 10^6/u L Hgb 11.4 L (11.7-16.6) g/dL Hct 37.3 L (42.0-52.0) % MCV 87.6 (80-94) fL MCH 26.8 L (28.0-34.0) pg MCHC 30.6 (30.0-36.0) g/dL RDW 16.5 H (12.1-15.1) % Plt Count 273 (130-400) 10^3/c mm MPV 9.9 (7.4-10.4) fL Neut % (Auto) 73.4 % Lymph % (Auto) 10.6 % Aiken % (Auto) 10.2 % Eos % (Auto) 4.8 % Baso % (Auto) 0.8 % Neut # (Auto) 3.5 (1.8-7.7) 10^3/u L Lymph # (Auto) 0.5 L (0.8-4.8) 10^3/u L Aiken # (Auto) 0.5 (0.2-0.9) 10^3/u L Eos # (Auto) 0.2 (0.0-0.8) 10^3/u L Baso # (Auto) 0.0 (0.0-0.1) 10^3/u L Nucleated RBC % (a uto) 0 % Nucleated RBCs # 0.0 /100WBC Sodium 138 (136-145) mmol/L Potassium 3.0 L (3.5-5.1) mmol/L Chloride 94 L (98-107) mmol/L Carbon Dioxide 34 H (22-29) mmol/L Anion Gap 13.0 (5-19) BUN 8 (8-23) mg/dL Creatinine 3.0 H (0.7-1.2) mg/dL GFR Calculation 20.9 L (90-130) mL/min Glucose 104 (65-115) mg/dL Calcium 9.3 (8.5-10.5) mg/dL Total Bilirubin 0.6 (0.15-1.2) mg/dL AST 12 (0-40) U/L ALT < 5 (0-41) U/L Alkaline Phosphata se 148 H (40-130) IU/L Total Protein 7.9 (6.6-8.7) g/dL Albumin 3.5 (3.5-5.2) g/dL Globulin 4.4 (1.3-4.6) g/dL TSH 4.97 H (0.27-4.20) uIU/ mL Urine Color Brown (Yellow) Urine Appearance Turbid (CLEAR) Urine pH 6.5 (5-7) Ur Specific Gravit y 1.010 (1.005-1.030) Urine Protein 2+ H (Negative) Urine Glucose (UA) Norm (Normal) Urine Ketones Negative (Negative) Urine Blood 3+ H (Negative) Urine Nitrate Negative (Negative) Urine Bilirubin 1+ H (NEGATIVE) Urine Urobilinogen Norm (Negative) mg/dL Ur Leukocyte Lilibeth ase Trace H (Negative) Urine RBC Too numerous to c nt H (0-2) /hpf Urine WBC 5-10 H (0-5) /hpf Ur Squamous Epith Cells None (0-5) Urine Bacteria Trace (NONE) Urine Opiates Scre en (Negative) ng/mL Ur Barbiturates Sc reen (Negative) ng/mL Ur Phencyclidine S crn (Negative) ng/mL Ur Amphetamines Sc reen (Negative) ng/mL U Benzodiazepines Scrn (Negative) ng/mL Urine Cocaine Scre en (Negative) ng/mL U Marijuana (THC) Screen (Negative) ng/mL Ethyl Alcohol < 10 (0-10) mg/dL 08/03/19 Range/Units 13:53 WBC (4.0-10.0) 10^3/ uL RBC (4.1-5.3) 10^6/u L Hgb (11.7-16.6) g/dL Hct (42.0-52.0) % MCV (80-94) fL MCH (28.0-34.0) pg MCHC (30.0-36.0) g/dL RDW (12.1-15.1) % Plt Count (130-400) 10^3/c mm MPV (7.4-10.4) fL Neut % (Auto) % Lymph % (Auto) % Aiken % (Auto) % Eos % (Auto) % Baso % (Auto) % Neut # (Auto) (1.8-7.7) 10^3/u L Lymph # (Auto) (0.8-4.8) 10^3/u L Aiken # (Auto) (0.2-0.9) 10^3/u L Eos # (Auto) (0.0-0.8) 10^3/u L Baso # (Auto) (0.0-0.1) 10^3/u L Nucleated RBC % (a uto) % Nucleated RBCs # /100WBC Sodium (136-145) mmol/L Potassium (3.5-5.1) mmol/L Chloride (98-107) mmol/L Carbon Dioxide (22-29) mmol/L Anion Gap (5-19) BUN (8-23) mg/dL Creatinine (0.7-1.2) mg/dL GFR Calculation (90-130) mL/min Glucose (65-115) mg/dL Calcium (8.5-10.5) mg/dL Total Bilirubin (0.15-1.2) mg/dL AST (0-40) U/L ALT (0-41) U/L Alkaline Phosphata se (40-130) IU/L Total Protein (6.6-8.7) g/dL Albumin (3.5-5.2) g/dL Globulin (1.3-4.6) g/dL TSH (0.27-4.20) uIU/ mL Urine Color (Yellow) Urine Appearance (CLEAR) Urine pH (5-7) Ur Specific Gravit y (1.005-1.030) Urine Protein (Negative) Urine Glucose (UA) (Normal) Urine Ketones (Negative) Urine Blood (Negative) Urine Nitrate (Negative) Urine Bilirubin (NEGATIVE) Urine Urobilinogen (Negative) mg/dL Ur Leukocyte Lilibeth ase (Negative) Urine RBC (0-2) /hpf Urine WBC (0-5) /hpf Ur Squamous Epith Cells (0-5) Urine Bacteria (NONE) Urine Opiates Scre en Positive H (Negative) ng/mL Ur Barbiturates Sc reen Negative (Negative) ng/mL Ur Phencyclidine S crn Negative (Negative) ng/mL Ur Amphetamines Sc reen Negative (Negative) ng/mL U Benzodiazepines Scrn Positive H (Negative) ng/mL Urine Cocaine Scre en Negative (Negative) ng/mL U Marijuana (THC) Screen Negative (Negative) ng/mL Ethyl Alcohol (0-10) mg/dL Discharge Plan Discharge Patient Disposition: Admitted As Inpatient Admit Provider: Nimesh Serna Clinical Impression: Acute UTI Condition: Stable Coding Level of Care Code ED Delivery Associate for Chg Fwd Exam Comprehensive The documentation recorded by the Sandoval hennessy Carmen, accurately reflects the service I personally performed and the decisions made by , Ileana Vicente MD
[2019-08-03 12:16] LABS: Basophils % 0.8 %; Eosinophils # 0.2 10^3/uL (0.0-0.8); Eosinophils % 4.8 %; Hematocrit 37.3 % (42.0-52.0); Hemoglobin 11.4 g/dL (11.7-16.6); Lymphocytes # 0.5 10^3/uL (0.8-4.8); Lymphocytes % 10.6 %; Mean Corpuscular HGB Conc 30.6 g/dL (30.0-36.0); Mean Corpuscular Hemoglobin 26.8 pg (28.0-34.0); Mean Corpuscular Volume 87.6 fL (80-94); Mean Platelet Volume 9.9 fL (7.4-10.4); Monocytes # 0.5 10^3/uL (0.2-0.9); Monocytes % 10.2 %; Neutrophils # 3.5 10^3/uL (1.8-7.7); Neutrophils % 73.4 %; Nucleated Red Blood Cells % 0 %; Platelet Count 273 10^3/cmm (130-400); Red Blood Count 4.26 10^6/uL (4.1-5.3); Red Cell Distribution Width 16.5 % (12.1-15.1); White Blood Count 4.8 10^3/uL (4.0-10.0)
[2019-08-03 12:39] LABS: Alanine Aminotransferase < 5 U/L (0-41); Albumin Level 3.5 g/dL (3.5-5.2); Alkaline Phosphatase 148 IU/L (40-130); Aspartate Amino Transferase 12 U/L (0-40); Blood Urea Nitrogen 8 mg/dL (8-23); Calcium 9.3 mg/dL (8.5-10.5); Carbon Dioxide 34 mmol/L (22-29); Chloride 94 mmol/L (98-107); Globulin 4.4 g/dL (1.3-4.6); Glomerular Filtration Rate 20.9 mL/min (90-130); Glucose 104 mg/dL (65-115); Sodium 138 mmol/L (136-145); Thyroid Stimulating Hormone 4.97 uIU/mL (0.27-4.20); Total Bilirubin 0.6 mg/dL (0.15-1.2); Total Protein 7.9 g/dL (6.6-8.7)
[2019-08-03 12:50] LABS: Alcohol Level < 10 mg/dL (0-10)
[2019-08-03] MEDS: LORazepam 1 mg Tablet 0.5 MG PO (12:52)
--- NOTE | 2019-08-03 13:31 | PC.NURSE ---
Verified with Dr Vicente to give pt Ativan 0.5mg by mouth.
[2019-08-03 14:29] LABS: Urine Appearance Turbid (CLEAR); Urine Color Brown (Yellow); pH Urine 6.5 (5-7)
[2019-08-03 14:30] LABS: Add Urine Microscopic? YES; Bilirubin Urine 1+ (NEGATIVE); Blood Urine 3+ (Negative); Glucose Urine UA Norm (Normal); Ketones Urine Negative (Negative); Leukocyte Esterase Urine Trace (Negative); Nitrate Urine Negative (Negative); Protein Urine 2+ (Negative); Urobilinogen Urine Norm (Negative)
[2019-08-03 14:31] LABS: Add Urine Culture? Yes; Bacteria Urine TRACE; RBC Urine TOO NUMEROUS TO CNT /hpf (0-2)
[2019-08-03 14:37] LABS: Amphetamines Screen Urine Negative (Negative); Barbiturates Screen Urine Negative (Negative); Benzodiazepines Screen Urine Positive (Negative); Cocaine Screen Urine Negative (Negative); Opiate Screen Urine Positive (Negative); PCP Screen Urine Negative (Negative); THC Screen Urine Negative (Negative)
[2019-08-03] MEDS: nitrofurantoin SR (BID) 100 mg Capsule PO (15:29)
--- NOTE | 2019-08-03 17:56 | PC.SOCIAL ---
Addendum entered by Charito Cortés RN 08/03/19 18:11: Touch Up Worker spoken to at [facility] was [place] Original Note: Assisted Tory GUIDRY/ JOSE in ED. Call placed to Chandrika the commercial property administrator at [facility] to question patient being left here and issued an emergent discharge letter from the facility. Per ED provider Dr Vicente and Dr Waddell Psychiatrist patient is not having active hallucinations. Chandrika indicates per State regulations 483.15C4 if patient has been in the facility for less than 30 days (per here he was admitted 07/11/2019) then a 30 day timeframe is not required to find alternate placement. He can be emergently discharged if safety risk, health risk or has improved to where level of care is no longer needed. She indicates she has called the state and notified them as well as the [facility] office per their regulation to update they are issuing the notice. Per Chandrika is not interested in appealing and feels he needs a different level of care. This nurse contacted [facility] to discuss transfer there. Patient would need to sign himself in if not under a 96 hour hold unless he is unable to make decisions for himself and has a POA. This facility is located in [facility]. . This nurse has looked in previous records and no POA form has been located. This nurse went and talked with patient. He was asked if he would be willing to transfer to a [facility] facility and if he usually signs for himself. Patient indicates he has signed documents before, does not have a POA and then states they wont want me to go anywhere else . When asked who they are he indicates the nursing facility. This nurse explained that they are unable to take him back due to him being found on the floor he is a safety risk. Patient then states yes i have been on the floor before more than once and happened yesterday . This nurse asked why he was on the floor and he indicates the water was dripping on me This nursed asked where was the water dripping he indicates from the ceiling this nurse then asked where was he at when the water was dripping from the ceiling and he indicates in the garage at the facility . At this time patient does not appear to be able to sign documents to be admitted to [facility]. The information may related to dementia this nurse is unable to verify this. Tory has gotten approval to place in Observation while Fatoumata from the [facility] works on getting alternate placement for patient. We are hopeful she can find placement with [place] [facility] tomorrow. Provide Dr Vicente was updated on all information listed above.
[2019-08-03] MEDS: LORazepam 1 mg Tablet PO (18:32)
--- NOTE | 2019-08-03 18:48 | PM.HP ---
Providers/Chief Complaint Chief Complaint: PSYCH EVAL History of Present Illness Neel Austin is a 68 year old male with a past medical history of end-stage renal disease hemodialysis Thursday, CHF, hypertension, COPD, type 2 diabetes mellitus not on any medications?, severe peripheral vascular disease, history of right below-knee amputation, recently had a left below-knee amputation with wound dehiscence who presents from [place] care home due to concerns of confusion. The information that I received from [facility] care home was that patient was having episodes of confusion, was seeing things crawling on the wall,, he was seeing bugs, with throw himself on the floor, have episodes of agitation, confusion with care home staff, he wanted to get out of the care home, no episodes of of fevers, no vital abnormalities, no recent changes to his medications, he is on Ativan and Haldol, care home staff was concerned about dementia, concerned about his behaviors, felt that he was no longer suitable under their care, that they cannot care for him anymore due to his episodes of confusion, and they believe that he would be best served in a geriatric memory unit. The information that I received from the patient was that he is here in the emergency room as he does not want to be at a care home anymore, and he wants to go home. Patient states that over there at the care home they were treating him right, he does not want to be at that care home anymore, he states that they were treating him right there, states that he really wants to go home, he has a bilateral BKA, when confronted with this, states that he can walk on his own, he is found able to take care of him. No fevers, no chills, no nausea, vomiting, lightheadedness, dizziness, no chest pain, no shortness of breath, has had a fall with skin breakdown of the left elbow. He also has skin breakdown of his left BKA site which is managed by Dr. Goode. Denies any pain. Patient is alert oriented x2. During my interview patient answers most questions appropriately, at times he was yelling from his room asking for a nurse, he asked me to pray for him and his situation. Patient did not have any major health complaints when I interviewed him Review of Systems Const: Denies: fever, chills, fatigue or malaise Eyes: Denies: change in vision or blurry vision ENMT: Denies: nasal congestion Resp: Denies: shortness of breath, productive cough, non-productive cough or wheezing GI: Denies: abdominal pain, nausea, vomiting, vomiting blood, diarrhea, constipation, blood in stool or black tarry stool : Denies: flank pain, difficulty urinating, painful urination or urinary frequency Musc: Denies: neck pain or back pain Skin/Breast: Denies: rash Neuro: Denies: headache, dizziness or vertigo Psych: Denies: anxiety or depression Endo: Denies: excessive urination or excessive thirst Medications/Allergies Home Medications Medication Instructions Recorded Confirmed Last Taken Type acetaminophen 325 mg PO QID PRN 08/03/19 08/03/19 07/18/19 History bisacodyl [Dulcolax (bisacodyl)] 5 mg PO DAILY PRN 08/03/19 08/03/19 07/13/19 History bisacodyl [Dulcolax (bisacodyl)] 10 mg OR DAILY PRN 08/03/19 08/03/19 Unknown History dextran 70-hypromellose (PF) 1 drp OPHTHALMIC (EYE) QID PRN 08/03/19 08/03/19 Unknown History [Natural Tears (PF)] escitalopram oxalate [Lexapro] 20 mg PO DAILY 08/03/19 08/03/19 08/02/19 History furosemide [Lasix] 20 mg PO BID 08/03/19 08/03/19 08/02/19 History haloperidol 2 mg PO DAILY PRN 08/03/19 08/03/19 08/01/19 History hydrocodone-acetaminophen 1 tab PO Q6H PRN 08/03/19 08/03/19 08/01/19 History ipratropium-albuterol 3 ml INHALATION Q4H PRN 08/03/19 08/03/19 07/19/19 History lorazepam [Ativan] 0.5 mg PO TID 08/03/19 08/03/19 08/02/19 History Allergies Allergy/AdvReac Type Severity Reaction Status Date / Time No Known Allergies Allergy Verified 08/03/19 11:43 PFSH Acute PFSH: Medical History CAD (coronary artery disease) CHF (congestive heart failure) CVA (cerebral vascular accident) Diabetes Gout HTN (hypertension) Hyperkalemia Myocardial infarction Osteomyelitis Pneumonia Renal failure Sickle cell disease Surgical History 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 Social History Smoking and tobacco status: never smoked Vitals/I&O/Wt Last Vital Signs Temp 97.7 F 08/03/19 11:34 Pulse 66 08/03/19 11:34 Resp 18 08/03/19 15:47 BP 162/83 08/03/19 11:34 Pulse Ox 93 08/03/19 11:34 Weight last 48 hrs Weight 77.111 kg Physical Exam Const: COMMON NORMALS: no apparent distress and oriented x3 GENERAL APPEARANCE: cooperative and comfortable HENMT: COMMON NORMALS: normocephalic HEAD & SCALP: normocephalic Eye: COMMON NORMALS: PERRL, EOMs intact bilaterally and no papilledema GENERAL EYE: normal appearance of both eyes PUPIL: Yes PERRL DIRECT OPHTHALMOSCOPY: Yes no papilledema Neck/C-Spine: COMMON NORMALS: full ROM, no lymphadenopathy, no JVD and thyroid normal THYROID: thyroid normal Lymph: LYMPHATIC: no lymphadenopathy noted Resp: COMMON NORMALS: normal respiratory effort, no retractions, no use of accessory muscles and clear to auscultation bilaterally AUSCULTATION: clear to auscultation bilaterally Cardio: COMMON NORMALS: no JVD, regular rate, regular rhythm, S1 normal heart sound, S2 normal heart sound, no gallops, no clicks and no murmurs RATE: regular rate RHYTHM: regular rhythm HEART SOUNDS: S1 normal and S2 normal GI: COMMON NORMALS: normal to inspection, nondistended, normoactive bowel sounds, soft to palpation, non-tender and no hepatosplenomegaly PALPATION: Yes soft and Yes no hepatosplenomegaly Extremity: COMMON NORMALS: normal to inspection, full ROM and no pedal edema Neuro: COMMON NORMALS: CN's II-XII intact bilaterally, moves all extremities and no focal motor deficits SENSORIUM/ORIENTATION: Yes alert, Yes oriented to person and Yes oriented to place Psych: COMMON NORMALS: mental status grossly normal, thought process normal and cooperative THOUGHT PROCESS: normal thought process Data : 08/03/19 12:07 08/03/19 12:07 A&P Assessment and plan (1) Altered mental status: -Patient alert oriented x2, answers most questions appropriately -has some components of early dementia -UA shows evidence of UTI, will start him on Rocephin -I will obtain blood cultures as patient recently had a BKA surgery, is now having ulcerations of mentation, rule out bacteremia -Neurochecks, seizure precautions, Status: Acute Code(s): R41.82 - Altered mental status, unspecified (2) Status post below-knee amputation of left lower extremity: -Wound care for skin breakdown at BKA site Status: Acute Code(s): Z89.512 - Acquired absence of left leg below knee (3) Renal failure: -Nephrology consulted for dialysis Thursday, not sure how long he will stay here as inpatient Status: Acute Code(s): N19 - Unspecified kidney failure (4) Diabetes: -History of type 2 diabetes mellitus -He is not on any medications? -We will check a hemoglobin A1c Status: Chronic Code(s): E11.9 - Type 2 diabetes mellitus without complications (5) CAD (coronary artery disease): Status: Chronic Code(s): I25.10 - Atherosclerotic heart disease of picayune coronary artery without angina pectoris (6) CHF (congestive heart failure): Status: Chronic Code(s): I50.9 - Heart failure, unspecified (7) HTN (hypertension): Status: Chronic Code(s): I10 - Essential (primary) hypertension (8) Elbow wound: -Left elbow wound, stage I Status: Acute Code(s): S51.009A - Unspecified open wound of unspecified elbow, initial encounter Attestations Medical Necessity Statement*: Patient requires hospitalization, outpatient observation, altered mental status secondary to UTI Coding Level of Care Code Acute Hiv Nurse for Angel Winn Diagnoses Altered mental status R41.82 Status post below-knee amputation of left lower extremity Z89.512 Renal failure N19 Diabetes E11.9 CAD (coronary artery disease) I25.10 CHF (congestive heart failure) I50.9 HTN (hypertension) I10 Elbow wound S51.009A
--- NOTE | 2019-08-03 19:22 | PC.NURSE ---
EKG done at 1920 and shown to ER doctor
--- NOTE | 2019-08-03 19:29 | PC.NURSE ---
Repeat EKG done at 1926 and shown to ER doctor
--- NOTE | 2019-08-03 20:52 | PC.NURSE ---
Dialysis Shunts [facility] contacted to ask if either of patient's fistulas are being used for dialysis. Nursing at [facility] is unsure which site is being used. This nurse spoke with dialysis nurse ribbon hanking machine operator [facility] Micaela states that she is familiar with patient and that they are only using his chest catheter for dialysis. Patient does have a fistula around the AC of bilateral arm that are no longer working correctly. This nurse is able to feel a pulse in each fistula but no thrill felt and no bruit heard. Micaela states that it should be okay for IV to be placed in either arm.
--- NOTE | 2019-08-03 21:16 | PC.NURSE ---
SCDs Unable to apply SCDs as patient is a bilateral lower extremity amputee.
[2019-08-03] MEDS: atorvastatin 40 mg Tablet 20 MG PO (23:34)
[2019-08-03] MEDS: LORazepam 0.5 mg Tablet PO (23:35)
[2019-08-03] MEDS: enoxaparin 40 mg/0.4 mL Syringe SUBCUT (23:35)
[2019-08-03] MEDS: cefTRIAXone 1,000 MG in sodium chloride 0.9% (plus) 50 ML 100 MG IV (23:58)
[2019-08-04] VITALS (8 sets, daily range): BP systolic 117–182; BP diastolic 36–84; PULSE 58–89; RESP 15–22; TEMP 36.3–37.1; O2SAT 94–99
[2019-08-04 05:47] LABS: Basophils # 0.1 10^3/uL (0.0-0.1); Basophils % 1.1 %; Eosinophils # 0.2 10^3/uL (0.0-0.8); Eosinophils % 3.4 %; Hematocrit 38.5 % (42.0-52.0); Hemoglobin 11.5 g/dL (11.7-16.6); Lymphocytes # 0.5 10^3/uL (0.8-4.8); Lymphocytes % 11.3 %; Mean Corpuscular HGB Conc 29.9 g/dL (30.0-36.0); Mean Corpuscular Hemoglobin 27.3 pg (28.0-34.0); Mean Corpuscular Volume 91.2 fL (80-94); Mean Platelet Volume 10.3 fL (7.4-10.4); Monocytes # 0.5 10^3/uL (0.2-0.9); Monocytes % 10.4 %; Neutrophils # 3.5 10^3/uL (1.8-7.7); Neutrophils % 73.4 %; Nucleated Red Blood Cells % 0 %; Platelet Count 270 10^3/cmm (130-400); Red Blood Count 4.22 10^6/uL (4.1-5.3); Red Cell Distribution Width 16.7 % (12.1-15.1); White Blood Count 4.7 10^3/uL (4.0-10.0)
[2019-08-04 06:16] LABS: Alanine Aminotransferase < 5 U/L (0-41); Albumin Level 3.3 g/dL (3.5-5.2); Alkaline Phosphatase 149 IU/L (40-130); Anion Gap 17.8 (5-19); Aspartate Amino Transferase 12 U/L (0-40); Blood Urea Nitrogen 16 mg/dL (8-23); Calcium 9.8 mg/dL (8.5-10.5); Carbon Dioxide 30 mmol/L (22-29); Chloride 96 mmol/L (98-107); Glucose 66 mg/dL (65-115); Magnesium 2.1 mg/dL (1.7-2.3); Phosphorus 2.9 mg/dL (2.5-4.5); Potassium 3.8 mmol/L (3.5-5.1); Sodium 140 mmol/L (136-145); Total Bilirubin 0.5 mg/dL (0.15-1.2); Total Protein 7.3 g/dL (6.6-8.7)
[2019-08-04 06:29] LABS: Estmated Average Glucose 100; Hemoglobin A1C 5.1 % (4.0-6.0)
--- NOTE | 2019-08-04 08:30 | PC.OT ---
OT note: Attempted OT evaluation attempted. Pt confused at this time. Alert and oriented to self. Pt unaware of his bilateral BKA and reported I'll stand on my feet. Therapist asked pt to show his feet and he lifted his residual limbs and therapist discussed how pt has bilateral BKA and that at this time he can't walk on his residual limbs and encouraged participation in therapy to work on strengthening. Pt continued to refuse. Asked pt if he would work on sponge bath with therapist and he declined. Will attempt OT evaluation later as able.
--- NOTE | 2019-08-04 09:05 | PM.PN ---
Subjective Subjective: Interval history: Patient is brought into our facility with confusion and dementia that is progressively getting worse. At the SNF where he resides they were unable to take care of him and so he was transferred to our facility for further evaluation. Some evidence of UTI on urinalysis but he denies overt symptoms. He has no recollection of having dialysis yesterday. Communication through telemed was difficult given his hearing and the device volume. No overt fluid overload. Apart from confusion, there is no other uremic Sx. Vitals/I&O/Wt Last Vital Signs Temp 97.8 F 08/04/19 07:54 Pulse 80 08/04/19 07:54 Resp 18 08/04/19 07:54 BP 127/59 08/04/19 07:54 Pulse Ox 99 08/04/19 07:54 Weight last 48 hrs Weight 77.111 kg Physical Exam Const: COMMON NORMALS: no apparent distress and average body habitus HENMT: COMMON NORMALS: normocephalic and head/scalp atraumatic HEAD & SCALP: normocephalic and atraumatic Chest: COMMONS NORMALS: inspection of chest normal and palpation of chest normal Resp: COMMON NORMALS: normal respiratory effort and no retractions Cardio: COMMON NORMALS: regular rate RATE: regular rate GI: INSPECTION: Yes normal to inspection and No abdominal wall ecchymosis Data : 08/04/19 05:15 08/04/19 05:15 Micro: Microbiology 08/03/19 19:18 Blood Culture - Preliminary Blood SPECIMEN COLLECTED 08/03/19 19:18 Blood Culture - Preliminary Blood SPECIMEN COLLECTED A&P Additional A&P Information 1. ESRD - for dialysis tomorrow and will continue MWF schedule for him - 3K, UF 1-2L - dose meds for eGFR < 15 on dialysis 2. Confusion - likely combination of dementia and possibly metabolic encephalopathy - I doubt uremia is playing significant role given Creatinine/BUN and dialysis consistency - empirical therapy for UTI with Rocephin 3. Hemodynamics appear stable 4. Anemia of ESRD appears stable 5. DC planning to geripysche unit Attestations Medical Necessity Statement*: mgmt of ESRD and hemodialysis Coding Level of Care Code Acute Remediation Consultant for Angel Winn
[2019-08-04] MEDS: FUROsemide 20 mg Tablet PO (09:38)
[2019-08-04] MEDS: sevelamer 800 mg Tablet PO ×2 (09:38→16:30)
[2019-08-04] MEDS: escitalopram 10 mg Tablet 20 MG PO (09:38)
[2019-08-04] MEDS: amlodipine 10 mg Tablet PO (09:38)
[2019-08-04] MEDS: isosorbide mononitrate ER 60 mg Tablet PO (09:39)
[2019-08-04] MEDS: aspirin 81 mg EC Tablet PO (09:39)
[2019-08-04] MEDS: clopidogrel 75 mg Tablet PO (09:40)
[2019-08-04] MEDS: LORazepam 0.5 mg Tablet PO ×2 (09:46→16:31)
--- NOTE | 2019-08-04 12:05 | DCPLANNER ---
late entry - 08.03.19 patient access manager was called by Chandrakant Director Of Donor Relations, at [facility] usp around 11:00 before patient arrived at the ED. He stated that the facility was trying to place patient in a [facility]. He stated that they had been working with a second chef by the name of Ivet Mazariegos, a [place] [facility] home health with placement for patient. patient access manager called Ivet at , and was told to call [facility] about placement. patient access manager called [facility], spoke with psych officer instructional technology instructor, was told that they did not have any beds at this time, to call Magdaleno Hardin with the [place]. patient access manager called Magdaleno Anamarianallely was told that they did not have beds at this time. patient access manager reported this to the nurse and the ED Physician, Dr. Vicente. patient access manager was told that patient would be going back to the [facility] facility. patient access manager called Chandrakant at [facility], and stated that patient was going to be sent back to the usp, due to not exhibiting any psych behaviors at this time in the ED. patient access manager did tell Chandrakant that if they felt that patient should held on a 96 hour hold that someone from that facility would need to come to the ED to fill out affidavits on patient. Two different nurses came to the ED to fill out affidavits on patient. Dr. Vicente had Dr. Waddell come to the ER for a consult and a psych evaluation on patient. patient access manager received a phone call from Ivet Mazariegos, stating that the usp was not accepting patient back to the facility. The facility felt that patient was a safety risk and they were issuing an emergency discharge, and sent patients notice. patient access manager informed patients nurse, and ED physician Dr. Vicente. patient access manager also spoke with direct material handling warehouse supervisor Charito Cortés about situation. patient access manager called [facility] at [phone], trying to speak with Assembly Supervisor of the Day. patient access manager spoke with Mariposa Gomez, Pct instructional technology instructor after hours, explained the situation to Jason, got permission for patient to stay at [facility], so future placement could be obtained by Stacey. Gomez, called telephonic nurse case manager back and stated that she also spoke with the Bromination Equipment Operator and permission was also granted from the Bromination Equipment Operator for patient to stay of [facility]. patient access manager informed material handling warehouse supervisor, Charito Cortés, ED physician Dr. Vicente, and nurse. 08.04.19 patient access manager called Ivet Mazariegos, to inquire if she had heard anything on placement for patient. patient access manager was told that patients information had been sent to 4 different [place] facilities, that 1 had denied patient, and the other 3 were reviewing patients information. patient access manager was asked to send patients information from his stay at [facility] what is available. patient access manager sent recent records to Ivet. patient access manager was told that Ivet will keep telephonic nurse case manager updated on placement options for patient.
--- NOTE | 2019-08-04 12:11 | PC.CHAP ---
Pastoral Care Encounter/Spiritual Assessment Type of Contact [] Declined agricultural adviser visit [] Patient/Family/Request visit [] Outpatient visit [] Follow-up visit [] Physician referral [] Code/Alert [x] Routine visit [] Staff referral [] Actively dying [] Patient sleeping [] Family support [] [] Out of room [] Palliative care [] [] Receiving care in room [] Pre-surgical visit [] Trauma [] Long length of stay [] ICU visit [] Other: Relational/Emotional Strength [x] Patient feels connected with others/family/visitors/staff [] Distress [] Loneliness/isolation [] Abandonment Spirituality of Patient [] Person of Polina [] Attends Alevism of their Polina [] Believes in Prayer [] Reads Bible or Anabaptism materials [x] There are Spiritual issues to be addressed Membership Sales Advisor Interventions [x] Prayer [x] Active listening [x] Non-anxious presence [x] Spiritual/emotional support [] Crisis/trauma care [x] Spiritual counseling [] Bereavement support [] Provided bereavement packet [] Provided Bible/devotional materials [] Provided toy/stuffed animal, coloring book to patient or family member [] Provided Communion [] Anointing/Newell [] Salvation [] Completed spiritual assessment [] Other: Impact on Illness or Injury [] Angry [] Fearful [] Anxious [] Often cries [] Exhaustion [x] Unable to work [] Unable to attend shinto [x] Unable to walk/stand [] Unable to read [] Unable to drive [] Unable to eat/drink [] Unable to sleep [] Unable to be with family [] Patient intubated [] Other: Summary Time spent with patient 4 minutes
--- NOTE | 2019-08-04 15:03 | DCPLANNER ---
Addendum entered by Tory Duke 08/04/19 15:46: [facility] from the [facility] called disability case manager, and stated that patient would not be able to go to [facility] and VA pay for it. kitchen manager was told that [facility] is reviewing patients records, needed updated notes from today, and wound care information. kitchen manager spoke with Chantelle Stack and informed her that patient was not able to go to [facility] in [facility] due to VA not being able to have a VA contract with the facility. kitchen manager did inform Chantelle that patient was being reviewed at a different facility and disability case manager needed to fax patients records to the facility. kitchen manager did fax records, and put Chantelle contact information on the front fax sheet for the facility to call with updated information. kitchen manager called Ivet to inform her that disability case manager faxed records to [facility] from today and about his wound care needs. Original Note: kitchen manager spoke with Ivet with [facility] about [facility] placement, disability case manager was told that patient was accepted at [facility] in [place], [place] phone number is and fax number . kitchen manager was told that patient would have to be willing to go, disability case manager went and spoke with patient and his and informed them that patient was accepted at [facility], but patient would have to be willing to go. Patient told disability case manager in front of that he would to go the facility. kitchen manager asked Ivet if the VA would pay for his transportation to the facility. Patients wanted to make sure that the transportation was after his dialysis. kitchen manager informed patients account planner on the in patient side, Chantelle Stack that patient was accepted at [facility] and that patient is willing to go to the facility. kitchen manager also informed Dr. Serna of this as well, kitchen manager told physician that patients wanted patient to have his dialysis treatment before leaving.
--- NOTE | 2019-08-04 17:07 | PM.PN ---
Subjective Subjective: Interval history: Patient has no complaints this morning, no fevers, no chills, no nausea, no vomiting, patient really wants to go home I spoke to nursing tech, patient has been accepted by the [place] [facility], patient was eventually agreeable to go there, likely go there tomorrow but will first require dialysis Vitals/I&O/Wt Last Vital Signs Temp 97.6 F 08/04/19 16:00 Pulse 68 08/04/19 16:00 Resp 16 08/04/19 16:00 BP 158/80 08/04/19 16:00 Pulse Ox 96 08/04/19 16:00 08/04/19 08/04/19 08/04/19 06:59 14:59 22:59 Intake Total 600 / 600 Balance 600 / 600 Weight last 48 hrs Weight 77.111 kg Physical Exam Const: COMMON NORMALS: no apparent distress and alert GENERAL APPEARANCE: cooperative and comfortable ORIENTATION/CONSCIOUSNESS: Yes oriented to person and Yes oriented to place Neck/C-Spine: COMMON NORMALS: full ROM, no lymphadenopathy, no JVD and thyroid normal THYROID: thyroid normal Lymph: LYMPHATIC: no lymphadenopathy noted Resp: COMMON NORMALS: normal respiratory effort, no retractions, no use of accessory muscles and clear to auscultation bilaterally AUSCULTATION: clear to auscultation bilaterally Cardio: COMMON NORMALS: no JVD, regular rate, regular rhythm, S1 normal heart sound, S2 normal heart sound, no gallops, no clicks and no murmurs RATE: regular rate RHYTHM: regular rhythm HEART SOUNDS: S1 normal and S2 normal GI: COMMON NORMALS: normal to inspection, nondistended, normoactive bowel sounds, soft to palpation, non-tender and no hepatosplenomegaly PALPATION: Yes soft and Yes no hepatosplenomegaly Extremity: COMMON NORMALS: normal to inspection, full ROM and no pedal edema Neuro: SENSORIUM/ORIENTATION: Yes alert, Yes oriented to person and Yes oriented to place Psych: COMMON NORMALS: mental status grossly normal, thought process normal and cooperative THOUGHT PROCESS: normal thought process Data : 08/04/19 05:15 08/04/19 05:15 Micro: Microbiology 08/03/19 13:53 Urine Culture - Preliminary Urine,Clean Catch 08/03/19 19:18 Blood Culture - Preliminary Blood SPECIMEN COLLECTED 08/03/19 19:18 Blood Culture - Preliminary Blood SPECIMEN COLLECTED A&P Assessment and plan (1) Altered mental status: -Patient alert oriented x2, answers most questions appropriately -has some components of early dementia -UA shows evidence of UTI, will start him on Rocephin -I will obtain blood cultures as patient recently had a BKA surgery, is now having ulcerations of mentation, rule out bacteremia -Neurochecks, seizure precautions -We will likely be discharged to the correction tomorrow after dialysis Status: Acute Code(s): R41.82 - Altered mental status, unspecified (2) Status post below-knee amputation of left lower extremity: -Wound care for skin breakdown at BKA site Status: Acute Code(s): Z89.512 - Acquired absence of left leg below knee (3) Renal failure: -Nephrology consulted for dialysis Thursday, not sure how long he will stay here as inpatient Status: Acute Code(s): N19 - Unspecified kidney failure (4) Diabetes: -History of type 2 diabetes mellitus -He is not on any medications? -We will check a hemoglobin A1c Status: Chronic Code(s): E11.9 - Type 2 diabetes mellitus without complications (5) CAD (coronary artery disease): Status: Chronic Code(s): I25.10 - Atherosclerotic heart disease of [place] coronary artery without angina pectoris (6) CHF (congestive heart failure): Status: Chronic Code(s): I50.9 - Heart failure, unspecified (7) HTN (hypertension): Status: Chronic Code(s): I10 - Essential (primary) hypertension (8) Elbow wound: -Left elbow wound, stage I Status: Acute Code(s): S51.009A - Unspecified open wound of unspecified elbow, initial encounter Attestations Medical Necessity Statement*: Patient requires hospitalization due to altered mental status Coding Level of Care Code Acute Trailhead Maintenance Worker for [facility] Fwd Diagnoses Altered mental status R41.82 Status post below-knee amputation of left lower extremity Z89.512 Renal failure N19 Diabetes E11.9 CAD (coronary artery disease) I25.10 CHF (congestive heart failure) I50.9 HTN (hypertension) I10 Elbow wound S51.009A
--- NOTE | 2019-08-04 18:55 | PC.NURSE ---
Patient behaviors/mental status Patient has yelled out several times through out the shift while call light was in patients lap, was reminded several times to utilize call button for assistance. Patient stated there was a person in the corner of his room although he was the only person in the room. Patient instructed staff to get him a wheelchair so that he can leave and called nurse an asshole for not getting him a wheelchair. Patient was asked how he was going to get into the wheelchair, he stated he would get up on his feet, not realizing his current physical condition. Patient could not verbally verify his last name or date of during medication administration. Patient has refused all pm medications because he doesn't want to take everything the doctor gives him.
[2019-08-04] MEDS: atorvastatin 40 mg Tablet 20 MG PO (20:29)
[2019-08-04] MEDS: enoxaparin 40 mg/0.4 mL Syringe SUBCUT (20:30)
[2019-08-05] VITALS: BP 157/82; PULSE 71; RESP 18; TEMP 36.6; O2SAT 94
[2019-08-05 03:43] VITALS: BP 151/94; PULSE 67; RESP 16; TEMP 36.3; O2SAT 96
[2019-08-05 07:42] LABS: Basophils % 0.9 %; Eosinophils # 0.2 10^3/uL (0.0-0.8); Eosinophils % 3.8 %; Hematocrit 36.7 % (42.0-52.0); Hemoglobin 10.8 g/dL (11.7-16.6); Lymphocytes # 0.6 10^3/uL (0.8-4.8); Lymphocytes % 13.5 %; Mean Corpuscular HGB Conc 29.4 g/dL (30.0-36.0); Mean Corpuscular Hemoglobin 27.5 pg (28.0-34.0); Mean Corpuscular Volume 93.4 fL (80-94); Mean Platelet Volume 10.4 fL (7.4-10.4); Monocytes # 0.5 10^3/uL (0.2-0.9); Monocytes % 10.1 %; Neutrophils # 3.2 10^3/uL (1.8-7.7); Neutrophils % 71.2 %; Nucleated Red Blood Cells % 0 %; Platelet Count 225 10^3/cmm (130-400); Red Blood Count 3.93 10^6/uL (4.1-5.3); Red Cell Distribution Width 16.6 % (12.1-15.1); White Blood Count 4.4 10^3/uL (4.0-10.0)
[2019-08-05 08:00] VITALS: BP 161/78; PULSE 69; RESP 16; TEMP 36.5
[2019-08-05 08:07] LABS: Alanine Aminotransferase < 5 U/L (0-41); Albumin Level 2.9 g/dL (3.5-5.2); Alkaline Phosphatase 131 IU/L (40-130); Anion Gap 17.7 (5-19); Aspartate Amino Transferase 10 U/L (0-40); Blood Urea Nitrogen 25 mg/dL (8-23); Calcium 9.6 mg/dL (8.5-10.5); Carbon Dioxide 28 mmol/L (22-29); Chloride 96 mmol/L (98-107); Globulin 4.3 g/dL (1.3-4.6); Glomerular Filtration Rate 9.7 mL/min (90-130); Glucose 93 mg/dL (65-115); Magnesium 2.2 mg/dL (1.7-2.3); Phosphorus 4.4 mg/dL (2.5-4.5); Potassium 3.7 mmol/L (3.5-5.1); Sodium 138 mmol/L (136-145); Total Bilirubin 0.5 mg/dL (0.15-1.2); Total Protein 7.2 g/dL (6.6-8.7)
--- NOTE | 2019-08-05 08:57 | DCPLANNER ---
manager social work spoke with Librado at [facility] this morning about patient . manager social work wanted to confirm that facility did receive patients information. manager social work was told that the facility did receive information, the facility would review this morning to determine if they would accept patient. If the facility did need more information, they will call counter caser and inform counter caser what they need.
--- NOTE | 2019-08-05 10:00 | DCPLANNER ---
Ivet from the [place] called patient case coordinator and informed that the [facility] would not be able to take patient at this time. assistant store manager operations had Ivet call Chantelle, the c4 planner that is working with patient on the floor to give her an update and discuss other options for patient.
[2019-08-05] MEDS: aspirin 81 mg EC Tablet PO (11:06)
[2019-08-05] MEDS: sevelamer 800 mg Tablet PO ×3 (11:06→20:05)
[2019-08-05] MEDS: FUROsemide 20 mg Tablet PO ×2 (11:07→18:08)
[2019-08-05] MEDS: escitalopram 10 mg Tablet 20 MG PO (11:07)
[2019-08-05] MEDS: isosorbide mononitrate ER 60 mg Tablet PO (11:07)
[2019-08-05] MEDS: clopidogrel 75 mg Tablet PO (11:08)
[2019-08-05] MEDS: amlodipine 10 mg Tablet PO (11:08)
[2019-08-05] MEDS: LORazepam 0.5 mg Tablet PO ×3 (11:09→20:05)
[2019-08-05] MEDS: haloperidol 1 mg Tablet 2 MG PO (11:11)
[2019-08-05 12:00] VITALS: BP 161/78; PULSE 69; RESP 16; TEMP 36.5; O2SAT 92
--- NOTE | 2019-08-05 12:01 | P.PN_ITS ---
Subjective Subjective: Interval history: Wanted to come off dialysis early today but he remains confused. Otherwise dialysis went well. No other acute issues today Vitals/I&O/Wt Last Vital Signs Temp 97.4 F L 08/05/19 03:43 Pulse 67 08/05/19 03:43 Resp 16 08/05/19 03:43 BP 151/94 08/05/19 03:43 Pulse Ox 96 08/05/19 03:43 08/04/19 08/05/19 08/05/19 22:59 06:59 14:59 Intake Total 360 / 960 Balance 360 / 960 Physical Exam Const: COMMON NORMALS: no apparent distress and average body habitus HENMT: COMMON NORMALS: normocephalic and head/scalp atraumatic HEAD & SCALP: normocephalic and atraumatic Chest: COMMONS NORMALS: inspection of chest normal and palpation of chest normal Resp: COMMON NORMALS: normal respiratory effort and no retractions Cardio: COMMON NORMALS: regular rate RATE: regular rate GI: INSPECTION: Yes normal to inspection and No abdominal wall ecchymosis Data : 08/05/19 07:09 08/05/19 07:09 Micro: Microbiology 08/03/19 19:18 Blood Culture - Preliminary Blood NEGATIVE TO DATE 08/03/19 19:18 Blood Culture - Preliminary Blood NEGATIVE TO DATE 08/03/19 13:53 Urine Culture - Preliminary Urine,Clean Catch A&P Additional A&P Information 1. ESRD - for dialysis Thursday if he remains in house and will continue MWF schedule for him - 3K, UF 1-2L - dose meds for eGFR < 15 on dialysis 2. Confusion - likely combination of dementia and possibly metabolic encephalopathy - I doubt uremia is playing significant role given Creatinine/BUN and dialysis consistency - empirical therapy for UTI with Rocephin 3. Hemodynamics appear stable 4. Anemia of ESRD appears stable [facility] Attestations Medical Necessity Statement*: eval and mgmt of ESRD Coding Level of Care Code Acute Lead Driver for Angel Winn
[2019-08-05] MEDS: HYDROcodone-acetaminophen 5-325 mg Tablet 1 TAB PO (13:35)
[2019-08-05 16:00] VITALS: BP 132/69; PULSE 60; RESP 16; TEMP 36.6; O2SAT 95
--- NOTE | 2019-08-05 18:35 | P.PN_ITS ---
Subjective Subjective: Interval history: Patient has no complaints this morning, patient refused the end of dialysis this morning Vitals/I&O/Wt Last Vital Signs Temp 97.9 F 08/05/19 16:00 Pulse 60 08/05/19 16:00 Resp 16 08/05/19 16:00 BP 132/69 08/05/19 16:00 Pulse Ox 95 08/05/19 16:00 08/05/19 08/05/19 08/05/19 06:59 14:59 22:59 Intake Total 360 / 360 236 / 596 Balance 360 / 360 236 / 596 Physical Exam Const: COMMON NORMALS: no apparent distress and alert GENERAL APPEARANCE: cooperative and comfortable ORIENTATION/CONSCIOUSNESS: Yes oriented to person and Yes oriented to place HENMT: COMMON NORMALS: normocephalic HEAD & SCALP: normocephalic Eye: COMMON NORMALS: PERRL, EOMs intact bilaterally and no papilledema GENERAL EYE: normal appearance of both eyes PUPIL: Yes PERRL DIRECT OPHTHALMOSCOPY: Yes no papilledema Neck/C-Spine: COMMON NORMALS: full ROM, no lymphadenopathy, no JVD and thyroid normal THYROID: thyroid normal Lymph: LYMPHATIC: no lymphadenopathy noted Resp: COMMON NORMALS: normal respiratory effort, no retractions, no use of accessory muscles and clear to auscultation bilaterally AUSCULTATION: clear to auscultation bilaterally Cardio: COMMON NORMALS: no JVD, regular rate, regular rhythm, S1 normal heart sound, S2 normal heart sound, no gallops, no clicks and no murmurs RATE: regular rate RHYTHM: regular rhythm HEART SOUNDS: S1 normal and S2 normal GI: COMMON NORMALS: normal to inspection, nondistended, normoactive bowel sounds, soft to palpation, non-tender and no hepatosplenomegaly PALPATION: Yes soft and Yes no hepatosplenomegaly Extremity: COMMON NORMALS: normal to inspection, full ROM and no pedal edema Neuro: COMMON NORMALS: CN's II-XII intact bilaterally, moves all extremities and no focal motor deficits SENSORIUM/ORIENTATION: Yes alert, Yes oriented to person and Yes oriented to place Psych: COMMON NORMALS: mental status grossly normal, thought process normal and cooperative THOUGHT PROCESS: normal thought process Data : 08/05/19 07:09 08/05/19 07:09 Micro: Microbiology 08/03/19 13:53 Urine Culture - Final Urine,Clean Catch 08/03/19 19:18 Blood Culture - Preliminary Blood NEGATIVE TO DATE 08/03/19 19:18 Blood Culture - Preliminary Blood NEGATIVE TO DATE A&P Assessment and plan (1) Altered mental status: -Patient alert oriented x2, answers most questions appropriately -has some components of early dementia -UA shows evidence of UTI, will start him on Rocephin -I will obtain blood cultures as patient recently had a BKA surgery, is now having ulcerations of mentation, rule out bacteremia -Neurochecks, seizure precautions -We will likely be discharged to the retirement tomorrow after dialysis Status: Acute Code(s): R41.82 - Altered mental status, unspecified (2) Status post below-knee amputation of left lower extremity: -Wound care for skin breakdown at BKA site Status: Acute Code(s): Z89.512 - Acquired absence of left leg below knee (3) Renal failure: -Nephrology consulted for dialysis Thursday, not sure how long he will stay here as inpatient Status: Acute Code(s): N19 - Unspecified kidney failure (4) Diabetes: -History of type 2 diabetes mellitus -He is not on any medications? -We will check a hemoglobin A1c Status: Chronic Code(s): E11.9 - Type 2 diabetes mellitus without complications (5) CAD (coronary artery disease): Status: Chronic Code(s): I25.10 - Atherosclerotic heart disease of [place] coronary artery without angina pectoris (6) CHF (congestive heart failure): Status: Chronic Code(s): I50.9 - Heart failure, unspecified (7) HTN (hypertension): Status: Chronic Code(s): I10 - Essential (primary) hypertension (8) Elbow wound: -Left elbow wound, stage I Status: Acute Code(s): S51.009A - Unspecified open wound of unspecified elbow, initial encounter Attestations Medical Necessity Statement*: Patient is awaiting retirement placement Coding Level of Care Code Acute Alarm Mechanism Adjuster for Angel Winn Diagnoses Altered mental status R41.82 Status post below-knee amputation of left lower extremity Z89.512 Renal failure N19 Diabetes E11.9 CAD (coronary artery disease) I25.10 CHF (congestive heart failure) I50.9 HTN (hypertension) I10 Elbow wound S51.009A
[2019-08-05] MEDS: acetaminophen 325 mg Tablet PO (19:51)
[2019-08-05] MEDS: enoxaparin 30 mg/0.3 mL Syringe SUBCUT (19:53)
[2019-08-05] MEDS: atorvastatin 40 mg Tablet 20 MG PO (20:05)
[2019-08-05 20:41] VITALS: BP 109/53; PULSE 67; RESP 20; TEMP 36.8; O2SAT 95
[2019-08-06] VITALS (10 sets, daily range): BP systolic 134–166; BP diastolic 60–81; PULSE 66–85; RESP 16–22; TEMP 36.6–37.1; O2SAT 93–98
[2019-08-06 05:53] LABS: Alanine Aminotransferase < 5 U/L (0-41); Albumin Level 3.1 g/dL (3.5-5.2); Alkaline Phosphatase 132 IU/L (40-130); Anion Gap 17.8 (5-19); Aspartate Amino Transferase 11 U/L (0-40); Blood Urea Nitrogen 21 mg/dL (8-23); Calcium 9.6 mg/dL (8.5-10.5); Carbon Dioxide 28 mmol/L (22-29); Chloride 98 mmol/L (98-107); Globulin 4.3 g/dL (1.3-4.6); Glomerular Filtration Rate 11.1 mL/min (90-130); Glucose 96 mg/dL (65-115); Magnesium 2.2 mg/dL (1.7-2.3); Phosphorus 4.2 mg/dL (2.5-4.5); Potassium 3.8 mmol/L (3.5-5.1); Sodium 140 mmol/L (136-145); Total Bilirubin 0.4 mg/dL (0.15-1.2); Total Protein 7.4 g/dL (6.6-8.7)
[2019-08-06] MEDS: clopidogrel 75 mg Tablet PO (10:11)
[2019-08-06] MEDS: amlodipine 10 mg Tablet PO (10:12)
[2019-08-06] MEDS: FUROsemide 20 mg Tablet PO ×2 (10:12→17:24)
[2019-08-06] MEDS: aspirin 81 mg EC Tablet PO (10:13)
[2019-08-06] MEDS: haloperidol 1 mg Tablet 2 MG PO (10:13)
[2019-08-06] MEDS: escitalopram 10 mg Tablet 20 MG PO (10:13)
[2019-08-06] MEDS: sevelamer 800 mg Tablet PO ×3 (10:18→22:13)
[2019-08-06] MEDS: acetaminophen 325 mg Tablet PO (10:18)
[2019-08-06] MEDS: isosorbide mononitrate ER 60 mg Tablet PO (10:20)
[2019-08-06] MEDS: LORazepam 0.5 mg Tablet PO ×3 (10:20→22:13)
[2019-08-06] MEDS: acetaminophen 325 mg Tablet 650 MG PO (10:30)
[2019-08-06] MEDS: HYDROcodone-acetaminophen 5-325 mg Tablet 1 TAB PO ×2 (12:43→19:16)
--- NOTE | 2019-08-06 13:07 | PM.PN ---
Subjective Subjective: Interval history: I am seeing him in follow up for ESRD management and dialysis needs. No chest pain or shortness of breath. No nausea or vomiting Medications: Reviewed: Yes Vitals/I&O/Wt Last Vital Signs Temp 97.9 F 08/06/19 11:59 Pulse 66 08/06/19 11:59 Resp 18 08/06/19 11:59 BP 166/81 08/06/19 11:59 Pulse Ox 93 08/06/19 11:59 08/05/19 08/06/19 08/06/19 22:59 06:59 14:59 Intake Total 296 / 656 840 / 840 Balance 296 / 656 840 / 840 Physical Exam Const: COMMON NORMALS: no apparent distress GENERAL APPEARANCE: cooperative Resp: COMMON NORMALS: clear to auscultation bilaterally AUSCULTATION: clear to auscultation bilaterally Cardio: COMMON NORMALS: S1 normal heart sound and S2 normal heart sound HEART SOUNDS: S1 normal and S2 normal GI: AUSCULTATION: Yes normoactive bowel sounds Extremity: GENERAL: Yes edema Data : 08/05/19 07:09 08/06/19 04:53 Micro: Microbiology 08/03/19 13:53 Urine Culture - Final Urine,Clean Catch A&P Assessment and plan (1) ESRD (end stage renal disease): No acute indication for dialysis today. Will plan HD on thursday if he is still here Status: Acute Code(s): N18.6 - End stage renal disease (2) HTN (hypertension): BP under control Status: Chronic Code(s): I10 - Essential (primary) hypertension (3) Anemia: Hb within goal Status: Acute Code(s): D64.9 - Anemia, unspecified Attestations Medical Necessity Statement*: ESRD Coding Level of Care Code Acute Vp [employer] for [facility] Fwd Diagnoses ESRD (end stage renal disease) N18.6 HTN (hypertension) I10 Anemia D64.9
--- NOTE | 2019-08-06 16:29 | PM.PN ---
Subjective Subjective: Interval history: Patient's is at bedside this morning, states that she cannot care for him at home, [place] [facility] [place], has no significant complaints, is awaiting physical therapy Vitals/I&O/Wt Last Vital Signs Temp 97.9 F 08/06/19 11:59 Pulse 66 08/06/19 11:59 Resp 18 08/06/19 11:59 BP 166/81 08/06/19 11:59 Pulse Ox 93 08/06/19 11:59 08/06/19 08/06/19 08/06/19 06:59 14:59 22:59 Intake Total 840 / 840 Balance 840 / 840 Physical Exam Const: COMMON NORMALS: no apparent distress and oriented x3 HENMT: COMMON NORMALS: normocephalic HEAD & SCALP: normocephalic Neck/C-Spine: COMMON NORMALS: no JVD Resp: COMMON NORMALS: normal respiratory effort, no retractions, no use of accessory muscles and clear to auscultation bilaterally AUSCULTATION: clear to auscultation bilaterally Cardio: COMMON NORMALS: no JVD, regular rate, regular rhythm, S1 normal heart sound and S2 normal heart sound RATE: regular rate RHYTHM: regular rhythm HEART SOUNDS: S1 normal and S2 normal GI: COMMON NORMALS: normal to inspection, nondistended, normoactive bowel sounds, soft to palpation, non-tender, no hepatosplenomegaly, no masses and no bruits PALPATION: Yes soft and Yes no hepatosplenomegaly Extremity: NARRATIVE EXTREMITY EXAM: Bilateral BKA Neuro: COMMON NORMALS: oriented x3 Psych: COMMON NORMALS: mental status grossly normal Data : 08/05/19 07:09 08/06/19 04:53 Micro: Microbiology 08/03/19 13:53 Urine Culture - Final Urine,Clean Catch A&P Assessment and plan (1) Altered mental status: -Patient alert oriented x2, answers most questions appropriately -has some components of early dementia -UA shows evidence of UTI, has been on Rocephin for 3 days, urine cultures negative, afebrile. We will stop antibiotics -I will obtain blood cultures as patient recently had a BKA surgery, is now having ulcerations of mentation, rule out bacteremia, blood cultures have been unremarkable -Neurochecks, seizure precautions -[place] Status: Acute Code(s): R41.82 - Altered mental status, unspecified (2) Status post below-knee amputation of left lower extremity: -Wound care for skin breakdown at BKA site Status: Acute Code(s): Z89.512 - Acquired absence of left leg below knee (3) Renal failure: -Nephrology consulted for dialysis Thursday, not sure how long he will stay here as inpatient Status: Acute Code(s): N19 - Unspecified kidney failure (4) Diabetes: -History of type 2 diabetes mellitus -He is not on any medications? -We will check a hemoglobin A1c Status: Chronic Code(s): E11.9 - Type 2 diabetes mellitus without complications (5) CAD (coronary artery disease): Status: Chronic Code(s): I25.10 - Atherosclerotic heart disease of [place] coronary artery without angina pectoris (6) CHF (congestive heart failure): Status: Chronic Code(s): I50.9 - Heart failure, unspecified (7) HTN (hypertension): Status: Chronic Code(s): I10 - Essential (primary) hypertension (8) Elbow wound: -Left elbow wound, stage I Status: Acute Code(s): S51.009A - Unspecified open wound of unspecified elbow, initial encounter Attestations Medical Necessity Statement*: [place] Coding Level of Care Code Acute Security Police Officer for Chg Fwd Diagnoses Altered mental status R41.82 Status post below-knee amputation of left lower extremity Z89.512 Renal failure N19 Diabetes E11.9 CAD (coronary artery disease) I25.10 CHF (congestive heart failure) I50.9 HTN (hypertension) I10 Elbow wound S51.009A
[2019-08-06] MEDS: enoxaparin 30 mg/0.3 mL Syringe SUBCUT (22:13)
[2019-08-06] MEDS: atorvastatin 40 mg Tablet 20 MG PO (22:13)
[2019-08-07] VITALS (13 sets, daily range): BP systolic 115–159; BP diastolic 45–82; PULSE 36–97; RESP 14–22; TEMP 36.3–36.9; O2SAT 90–98
[2019-08-07] MEDS: HYDROcodone-acetaminophen 5-325 mg Tablet 1 TAB PO ×4 (01:07→20:40)
[2019-08-07 06:24] LABS: Alanine Aminotransferase 6 U/L (0-41); Albumin Level 3.3 g/dL (3.5-5.2); Alkaline Phosphatase 117 IU/L (40-130); Anion Gap 17.2 (5-19); Aspartate Amino Transferase 13 U/L (0-40); Blood Urea Nitrogen 35 mg/dL (8-23); Calcium 9.3 mg/dL (8.5-10.5); Carbon Dioxide 28 mmol/L (22-29); Chloride 96 mmol/L (98-107); Globulin 3.3 g/dL (1.3-4.6); Glomerular Filtration Rate 8.1 mL/min (90-130); Glucose 88 mg/dL (65-115); Potassium 4.2 mmol/L (3.5-5.1); Sodium 137 mmol/L (136-145); Total Bilirubin 0.4 mg/dL (0.15-1.2); Total Protein 6.6 g/dL (6.6-8.7)
[2019-08-07] MEDS: ipratropium-albuterol 3 mL Neb INHALATION ×2 (06:33→19:27)
[2019-08-07] MEDS: clopidogrel 75 mg Tablet PO (08:47)
[2019-08-07] MEDS: amlodipine 10 mg Tablet PO (08:47)
[2019-08-07] MEDS: aspirin 81 mg EC Tablet PO (08:47)
[2019-08-07] MEDS: sevelamer 800 mg Tablet PO ×3 (08:49→20:40)
[2019-08-07] MEDS: haloperidol 1 mg Tablet 2 MG PO (08:51)
[2019-08-07] MEDS: escitalopram 10 mg Tablet 20 MG PO (08:52)
[2019-08-07] MEDS: isosorbide mononitrate ER 60 mg Tablet PO (08:52)
[2019-08-07] MEDS: FUROsemide 20 mg Tablet PO ×2 (08:52→18:51)
[2019-08-07] MEDS: LORazepam 0.5 mg Tablet PO ×3 (08:57→20:40)
--- NOTE | 2019-08-07 11:13 | DCPLANNER ---
Pg 2 of IM explained to and signed by pt. No questions, he comments that he's never heard of this before.
--- NOTE | 2019-08-07 13:09 | ECG_ITS ---
Measurements Intervals [place] Rate: 73 P: 79 MN: 214 QRS: 23 QRSD: 138 T: 0 QT: 467 QTc: 517 SINUS RHYTHM WITH FIRST DEGREE AV BLOCK WITH OCCASIONAL SUPRAVENTRICULAR PREMATURE COMPLEXES INTRAVENTRICULAR CONDUCTION DELAY [130+ ms QRS DURATION] POSSIBLE INFERIOR MYOCARDIAL INFARCTION [30 ms Q WAVE IN II/aVF], PROBABLY OLD WARNING: DATA QUALITY MAY AFFECT INTERPRETATION Compared to ECG 07/19/2019 14:28:49 First degree AV block now present Ventricular premature complex(es) no longer present Myocardial infarct finding still present Electronically Signed On 08-07-2019 19:51:57 CDT by David Arthur M.D. [email or web address]
--- NOTE | 2019-08-07 16:30 | P.PN_ITS ---
Subjective Subjective: Interval history: I am seeing him in follow up for his ESRD management and dialysis needs. No chest pain or shortness of breath Medications: Reviewed: Yes Vitals/I&O/Wt Last Vital Signs Temp 97.9 F 08/07/19 15:49 Pulse 97 08/07/19 15:49 Resp 20 H 08/07/19 15:49 BP 115/77 08/07/19 15:49 Pulse Ox 94 08/07/19 15:49 08/07/19 08/07/19 08/07/19 06:59 14:59 22:59 Intake Total 480 / 480 Balance 480 / 480 Physical Exam Const: COMMON NORMALS: no apparent distress GENERAL APPEARANCE: cooperative Resp: AUSCULTATION: crackles GI: AUSCULTATION: Yes normoactive bowel sounds Extremity: GENERAL: Yes edema Skin: RASHES: no rashes Data : 08/05/19 07:09 08/07/19 04:13 A&P Assessment and plan (1) ESRD (end stage renal disease): No indication for dialysis today. Will plan HD tommorrow for 4 hrs Status: Acute Code(s): N18.6 - End stage renal disease (2) Anemia: Hb within goal Status: Acute Code(s): D64.9 - Anemia, unspecified (3) HTN (hypertension): BP under control Status: Chronic Code(s): I10 - Essential (primary) hypertension Attestations Medical Necessity Statement*: ESRD Coding Level of Care Code Acute Developer Support Engineer for [facility] Fwd Diagnoses ESRD (end stage renal disease) N18.6 Anemia D64.9 HTN (hypertension) I10
--- NOTE | 2019-08-07 16:43 | P.PN_ITS ---
Subjective Subjective: Interval history: Neel reports he is doing okay. No complaints. Medications: Reviewed: Yes Vitals/I&O/Wt Last Vital Signs Temp 97.9 F 08/07/19 15:49 Pulse 97 08/07/19 15:49 Resp 20 H 08/07/19 15:49 BP 115/77 08/07/19 15:49 Pulse Ox 94 08/07/19 15:49 08/07/19 08/07/19 08/07/19 06:59 14:59 22:59 Intake Total 480 / 480 Balance 480 / 480 Physical Exam Narrative: EXAM NARRATIVE: General exam no apparent distress, polite but confused Cardiovascular regular rate and rhythm, 2/6 systolic murmur. Lungs clear Abdomen is soft with positive bowel sounds Extremities no cyanosis clubbing Data : 08/05/19 07:09 08/07/19 04:13 A&P Assessment and plan (1) Altered mental status: I believe he is back to his baseline. Concern of urine culture on admission for which he received 3 days of IV antibiotics. Culture was negative. Rocephin has been discontinued. Awaiting nursing facility placement Status: Acute Code(s): R41.82 - Altered mental status, unspecified (2) Status post below-knee amputation of left lower extremity: Continue wound care Status: Acute Code(s): Z89.512 - Acquired absence of left leg below knee (3) Renal failure: Appreciate nephrology, for ongoing dialysis Status: Acute Code(s): N19 - Unspecified kidney failure (4) Diabetes: Hemoglobin A1c 5.1 Status: Chronic Code(s): E11.9 - Type 2 diabetes mellitus without complications (5) CAD (coronary artery disease): Asymptomatic Status: Chronic Code(s): I25.10 - Atherosclerotic heart disease of [place] coronary artery without angina pectoris (6) CHF (congestive heart failure): Compensated Status: Chronic Code(s): I50.9 - Heart failure, unspecified (7) HTN (hypertension): Controlled Status: Chronic Code(s): I10 - Essential (primary) hypertension (8) Elbow wound: No evidence of infection Status: Acute Code(s): S51.009A - Unspecified open wound of unspecified elbow, initial encounter Attestations Medical Necessity Statement*: Needs continued hospital stay pending placement Coding Level of Care Code Acute Vice President Medical Affairs for Chg Fwd Diagnoses Altered mental status R41.82 Status post below-knee amputation of left lower extremity Z89.512 Renal failure N19 Diabetes E11.9 CAD (coronary artery disease) I25.10 CHF (congestive heart failure) I50.9 HTN (hypertension) I10 Elbow wound S51.009A
--- NOTE | 2019-08-07 19:34 | ECG_ITS ---
Measurements Intervals [place] Rate: 71 P: [place]: 0 QRS: 0 QRSD: 131 T: 213 QT: 395 QTc: 432 ATRIAL FIBRILLATION WITH ABERRANT CONDUCTION OR VENTRICULAR PREMATURE COMPLEXES INTRAVENTRICULAR CONDUCTION DELAY [130+ ms QRS DURATION] INTERPRETATION BASED ON A DEFAULT AGE OF 40 YEARS Compared to ECG 08/07/2019 14:41:25 Ventricular premature complex(es) now present Aberrant conduction of supraventricular beat(s) now present Sinus rhythm no longer present First degree AV block no longer present Myocardial infarct finding no longer present Electronically Signed On 08-08-2019 20:47:19 CDT by David Arthur M.D. [id number]
[2019-08-07] MEDS: enoxaparin 30 mg/0.3 mL Syringe SUBCUT (20:39)
[2019-08-07] MEDS: atorvastatin 40 mg Tablet 20 MG PO (20:40)
[2019-08-08] VITALS: BP 159/54; PULSE 68; RESP 15; TEMP 36.4; O2SAT 99
[2019-08-08 03:41] VITALS: BP 121/45; PULSE 62; RESP 16; TEMP 36.3; O2SAT 95
[2019-08-08 04:00] VITALS: BP 121/45; PULSE 62; RESP 16; TEMP 36.3
--- NOTE | 2019-08-08 05:16 | PC.NURSE ---
Respiratory performed EKG.
[2019-08-08] MEDS: ondansetron 2 mg/ML SDV 2 mL 4 MG IVP (05:19)
[2019-08-08 06:36] LABS: Alanine Aminotransferase < 5 U/L (0-41); Albumin Level 3.2 g/dL (3.5-5.2); Alkaline Phosphatase 123 IU/L (40-130); Anion Gap 20.1 (5-19); Aspartate Amino Transferase 10 U/L (0-40); Blood Urea Nitrogen 41 mg/dL (8-23); Calcium 9.5 mg/dL (8.5-10.5); Carbon Dioxide 25 mmol/L (22-29); Chloride 97 mmol/L (98-107); Globulin 4.1 g/dL (1.3-4.6); Glomerular Filtration Rate 6.7 mL/min (90-130); Glucose 92 mg/dL (65-115); Osmolality Calculated 283 mOsm/kg (285-295); Potassium 4.1 mmol/L (3.5-5.1); Sodium 138 mmol/L (136-145); Total Bilirubin 0.3 mg/dL (0.15-1.2); Total Protein 7.3 g/dL (6.6-8.7)
--- NOTE | 2019-08-08 07:31 | PM.PN ---
Subjective Subjective: Interval history: NO COMPLAINTS. WEAK, LETHARGIC Medications: Medication Review Details: Current Medications Acetaminophen (Tylenol) 650 mg PO Q6H PRN PRN Reason: Mild/Mod Pain Or Temp >/= 101 Last Admin: 08/06/19 10:30 Dose: 650 mg Documented by: Hydrocodone Bitart/Acetaminophen ([place] 5-325 Mg) 1 tab PO Q6H PRN PRN Reason: pain Last Admin: 08/07/19 20:40 Dose: 1 tab Documented by: Albuterol/Ipratropium (Duoneb) 3 ml INHALATION Q4H.RESPIRATORY PRN PRN Reason: Shortness Of Breath Last Admin: 08/07/19 19:27 Dose: 3 ml Documented by: Amlodipine Besylate (Norvasc) 10 mg PO DAILY [facility] Last Admin: 08/07/19 08:47 Dose: 10 mg Documented by: Aspirin (Aspirin Ec) 81 mg PO DAILY [facility] Last Admin: 08/07/19 08:47 Dose: 81 mg Documented by: Atorvastatin Calcium (Lipitor) 20 mg PO BEDTIME [facility] Last Admin: 08/07/19 20:40 Dose: 20 mg Documented by: Bisacodyl (Bisac-Evac) 10 mg [place] DAILY PRN PRN Reason: Constipation Bisacodyl (Dulcolax) 5 mg PO DAILY PRN PRN Reason: Constipation Clopidogrel Bisulfate (Plavix) 75 mg PO DAILY [facility] Last Admin: 08/07/19 08:47 Dose: 75 mg Documented by: Enoxaparin Sodium (Lovenox) 30 mg SUBCUT Q24H [facility] Last Admin: 08/07/19 20:39 Dose: 30 mg Documented by: Escitalopram Oxalate (Lexapro) 20 mg PO DAILY [facility] Last Admin: 08/07/19 08:52 Dose: 20 mg Documented by: Furosemide (Lasix) 20 mg PO BID [facility] Last Admin: 08/07/19 18:51 Dose: 20 mg Documented by: Haloperidol (Haldol) 2 mg PO DAILY PRN PRN Reason: behavior Last Admin: 08/07/19 08:51 Dose: 2 mg Documented by: Isosorbide Mononitrate (Imdur) 60 mg PO DAILY [facility] Last Admin: 08/07/19 08:52 Dose: 60 mg Documented by: Lorazepam (Ativan) 0.5 mg PO TID [facility] Last Admin: 08/07/19 20:40 Dose: 0.5 mg Documented by: Non-Formulary Medication (Dextran 70-Hypromellose (Pf) [Natural Tears (Pf)]) 1 drop EYEAFF QID PRN PRN Reason: itchy eyes Ondansetron HCl (Zofran) 4 mg IVP Q8H PRN PRN Reason: vomiting, or N/V if npo Last Admin: 08/08/19 05:19 Dose: 4 mg Documented by: Sevelamer Carbonate (Renvela) 800 mg PO TID [facility] Last Admin: 08/07/19 20:40 Dose: 800 mg Documented by: Vitals/I&O/Wt Last Vital Signs Temp 97.3 F L 08/08/19 04:00 Pulse 62 08/08/19 04:00 Resp 16 08/08/19 04:00 BP 121/45 08/08/19 04:00 Pulse Ox 95 08/08/19 03:41 08/07/19 08/08/19 08/08/19 22:59 06:59 14:59 Intake Total 120 / 600 120 / 720 Balance 120 / 600 120 / 720 Physical Exam Narrative: EXAM NARRATIVE: COMFORTABLE IN BED, nard. vss heent- nc/at- eomi, anicteric necvk supple lungs -clear b/l heart reg no rub abd soft, nt,nd, +BS ext- no edema, b/l BKA neuro- responsive and interactive rt ant chest wall catheter Data : 08/05/19 07:09 08/08/19 05:17 A&P Additional A&P Information 68 yr old man ESRD- dm care per PMD =htn controled anemia okay -monitor phos ESRD- hd now- 3.5 hrs, 3k remove 1.5- 2l Attestations Medical Necessity Statement*: per pmd Time Spent in Patient Care: 16 - 35 minutes (>than 50% of time spent in counselling and/or direct pt care on unit). Coding Level of Care Code Acute University Archivist for Angel Winn
--- NOTE | 2019-08-08 12:40 | P.PN_ITS ---
Subjective Subjective: Interval history: Neel was without complaints this morning when I saw him. He was undergoing dialysis. Medications: Reviewed: Yes Vitals/I&O/Wt Last Vital Signs Temp 97.3 F L 08/08/19 04:00 Pulse 62 08/08/19 04:00 Resp 16 08/08/19 04:00 BP 121/45 08/08/19 04:00 Pulse Ox 95 08/08/19 03:41 08/07/19 08/08/19 08/08/19 22:59 06:59 14:59 Intake Total 120 / 600 120 / 720 Balance 120 / 600 120 / 720 Physical Exam Narrative: EXAM NARRATIVE: General exam no apparent distress, polite but confused Cardiovascular regular rate and rhythm, 2/6 systolic murmur. Right chest dialysis catheter noted Lungs clear Abdomen is soft with positive bowel sounds Extremities no cyanosis clubbing Data : 08/05/19 07:09 08/08/19 05:17 A&P Assessment and plan (1) Altered mental status: I believe he is back to his baseline. Concern of urine culture on admission for which he received 3 days of IV antibiotics. Culture was negative. Rocephin has been discontinued. Awaiting nursing facility placement Status: Acute Code(s): R41.82 - Altered mental status, unspecified (2) Status post below-knee amputation of left lower extremity: Continue wound care Status: Acute Code(s): Z89.512 - Acquired absence of left leg below knee (3) Renal failure: Appreciate nephrology, for ongoing dialysis Status: Acute Code(s): N19 - Unspecified kidney failure (4) Diabetes: Hemoglobin A1c 5.1 Status: Chronic Code(s): E11.9 - Type 2 diabetes mellitus without complications (5) CAD (coronary artery disease): Asymptomatic Status: Chronic Code(s): I25.10 - Atherosclerotic heart disease of [place] coronary artery without angina pectoris (6) CHF (congestive heart failure): Compensated Status: Chronic Code(s): I50.9 - Heart failure, unspecified (7) HTN (hypertension): Controlled Status: Chronic Code(s): I10 - Essential (primary) hypertension (8) Elbow wound: No evidence of infection Status: Acute Code(s): S51.009A - Unspecified open wound of unspecified elbow, initial encounter Attestations Medical Necessity Statement*: Needs continued hospitalization awaiting placement Coding Level of Care Code Acute Supervisor Pre Wave for [facility] Fwd Diagnoses Altered mental status R41.82 Status post below-knee amputation of left lower extremity Z89.512 Renal failure N19 Diabetes E11.9 CAD (coronary artery disease) I25.10 CHF (congestive heart failure) I50.9 HTN (hypertension) I10 Elbow wound S51.009A
[2019-08-08] MEDS: escitalopram 10 mg Tablet 20 MG PO (13:28)
[2019-08-08] MEDS: aspirin 81 mg EC Tablet PO (13:28)
[2019-08-08] MEDS: isosorbide mononitrate ER 60 mg Tablet PO (13:29)
[2019-08-08] MEDS: clopidogrel 75 mg Tablet PO (13:29)
[2019-08-08] MEDS: FUROsemide 20 mg Tablet PO (13:29)
[2019-08-08] MEDS: amlodipine 10 mg Tablet PO (13:29)
--- NOTE | 2019-08-08 14:45 | PC.SOCIAL ---
IMM Updated Page 2 of IMM updated and given to patient. Initialed, dated, and timed and placed back in chart.
[2019-08-08 15:20] VITALS: BP 90/30; PULSE 53; RESP 16; TEMP 36.7; O2SAT 97
[2019-08-08] MEDS: LORazepam 0.5 mg Tablet PO ×2 (15:46→20:53)
[2019-08-08] MEDS: sevelamer 800 mg Tablet PO ×2 (15:46→20:52)
[2019-08-08] MEDS: HYDROcodone-acetaminophen 5-325 mg Tablet 1 TAB PO ×2 (15:49→22:34)
--- NOTE | 2019-08-08 18:48 | PC.NURSE ---
THIS NURSE WENT INTO TO DO PT MEDICATIONS, CHECKED VITALS BEFORE GIVING LASIX AND BLOOD PRESSURE READ 78/28, WHEN CHECKED MANUALLY BLOOD PRESSURE 80/50 HEART RATE AT 92, DR NOTIFIED OF BLOOD PRESSURE AND PT BEING ASYMPTOMATIC SO THE PT IS TO HAVE VITALS TAKEN IN 1 HOUR.
[2019-08-08 20:00] VITALS: BP 125/65; PULSE 57; RESP 20; TEMP 36.7; O2SAT 95
[2019-08-08] MEDS: enoxaparin 30 mg/0.3 mL Syringe SUBCUT (20:52)
[2019-08-08] MEDS: atorvastatin 40 mg Tablet 20 MG PO (20:52)
[2019-08-09] VITALS (10 sets, daily range): BP systolic 92–143; BP diastolic 46–82; PULSE 48–66; RESP 16–24; TEMP 36.3–36.9; O2SAT 86–97
--- NOTE | 2019-08-09 06:54 | P.PN_ITS ---
Subjective Subjective: Interval history: pt seen and examined. no complaints. did well on dialysis yesterday. Medications: Reviewed: Yes Medication Review Details: Current Medications Acetaminophen (Tylenol) 650 mg PO Q6H PRN PRN Reason: Mild/Mod Pain Or Temp >/= 101 Last Admin: 08/06/19 10:30 Dose: 650 mg Documented by: Hydrocodone Bitart/Acetaminophen ([place] 5-325 Mg) 1 tab PO Q6H PRN PRN Reason: pain Last Admin: 08/08/19 22:34 Dose: 1 tab Documented by: Albuterol/Ipratropium (Duoneb) 3 ml INHALATION Q4H.RESPIRATORY PRN PRN Reason: Shortness Of Breath Last Admin: 08/07/19 19:27 Dose: 3 ml Documented by: Amlodipine Besylate (Norvasc) 10 mg PO DAILY [facility] Last Admin: 08/08/19 13:29 Dose: 10 mg Documented by: Aspirin (Aspirin Ec) 81 mg PO DAILY [facility] Last Admin: 08/08/19 13:28 Dose: 81 mg Documented by: Atorvastatin Calcium (Lipitor) 20 mg PO BEDTIME [facility] Last Admin: 08/08/19 20:52 Dose: 20 mg Documented by: Bisacodyl (Bisac-Evac) 10 mg [place] DAILY PRN PRN Reason: Constipation Bisacodyl (Dulcolax) 5 mg PO DAILY PRN PRN Reason: Constipation Clopidogrel Bisulfate (Plavix) 75 mg PO DAILY [facility] Last Admin: 08/08/19 13:29 Dose: 75 mg Documented by: Enoxaparin Sodium (Lovenox) 30 mg SUBCUT Q24H [facility] Last Admin: 08/08/19 20:52 Dose: 30 mg Documented by: Escitalopram Oxalate (Lexapro) 20 mg PO DAILY [facility] Last Admin: 08/08/19 13:28 Dose: 20 mg Documented by: Furosemide (Lasix) 20 mg PO BID [facility] Last Admin: 08/08/19 18:35 Dose: Not Given Documented by: Haloperidol (Haldol) 2 mg PO DAILY PRN PRN Reason: behavior Last Admin: 08/07/19 08:51 Dose: 2 mg Documented by: Isosorbide Mononitrate (Imdur) 60 mg PO DAILY [facility] Last Admin: 08/08/19 13:29 Dose: 60 mg Documented by: Lorazepam (Ativan) 0.5 mg PO TID [facility] Last Admin: 08/08/19 20:53 Dose: 0.5 mg Documented by: Non-Formulary Medication (Dextran 70-Hypromellose (Pf) [Natural Tears (Pf)]) 1 drop EYEAFF QID PRN PRN Reason: itchy eyes Ondansetron HCl (Zofran) 4 mg IVP Q8H PRN PRN Reason: vomiting, or N/V if npo Last Admin: 08/08/19 05:19 Dose: 4 mg Documented by: Sevelamer Carbonate (Renvela) 800 mg PO TID [facility] Last Admin: 08/08/19 20:52 Dose: 800 mg Documented by: Vitals/I&O/Wt Last Vital Signs Temp 98.0 F 08/09/19 04:00 Pulse 64 08/09/19 04:00 Resp 18 08/09/19 04:00 BP 136/52 08/09/19 04:00 Pulse Ox 94 08/09/19 04:00 08/08/19 08/08/19 08/09/19 14:59 22:59 06:59 Intake Total 360 / 360 490 / 850 Output Total 251 / 251 Balance 360 / 360 490 / 850 -251 / 599 Physical Exam Narrative: EXAM NARRATIVE: COMFORTABLE IN BED, nard. vss heent- nc/at- eomi, anicteric necvk supple lungs -clear b/l heart reg no rub abd soft, nt,nd, +BS ext- no edema, b/l BKA neuro- responsive and interactive rt ant chest wall catheter Data : 08/05/19 07:09 08/08/19 05:17 Micro: Microbiology 08/03/19 19:18 Blood Culture - Final Blood NO GROWTH AFTER 5 DAYS 08/03/19 19:18 Blood Culture - Final Blood NO GROWTH AFTER 5 DAYS A&P Assessment and plan (1) ESRD (end stage renal disease): No indication for dialysis today. Will plan HD tommorow for 3.5 hrs Status: Acute Code(s): N18.6 - End stage renal disease (2) Anemia: Hb within goal Status: Acute Code(s): D64.9 - Anemia, unspecified (3) HTN (hypertension): BP under control Status: Chronic Code(s): I10 - Essential (primary) hypertension Additional A&P Information 68yr old man ESRD. s/p abx. cont hd MWF. cont rehab ESRD- hd MWF- 3.5 hrs, 3k remove 1.5- 2l Attestations Medical Necessity Statement*: per hospitalist Time Spent in Patient Care: 16 - 35 minutes Coding Level of Care Code Acute Development Officer for [facility] Fwd Diagnoses ESRD (end stage renal disease) N18.6 Anemia D64.9 HTN (hypertension) I10
[2019-08-09 07:37] LABS: Basophils # 0.1 10^3/uL (0.0-0.1); Eosinophils # 0.2 10^3/uL (0.0-0.8); Eosinophils % 4.7 %; Hemoglobin 10.2 g/dL (11.7-16.6); Lymphocytes # 0.6 10^3/uL (0.8-4.8); Lymphocytes % 11.2 %; Mean Corpuscular HGB Conc 29.1 g/dL (30.0-36.0); Mean Corpuscular Hemoglobin 26.3 pg (28.0-34.0); Mean Corpuscular Volume 90.2 fL (80-94); Mean Platelet Volume 11.4 fL (7.4-10.4); Monocytes # 0.5 10^3/uL (0.2-0.9); Monocytes % 10.4 %; Neutrophils # 3.6 10^3/uL (1.8-7.7); Neutrophils % 72.5 %; Nucleated Red Blood Cells % 0 %; Platelet Count 164 10^3/cmm (130-400); Red Blood Count 3.88 10^6/uL (4.1-5.3); Red Cell Distribution Width 16.5 % (12.1-15.1); White Blood Count 4.9 10^3/uL (4.0-10.0)
[2019-08-09 08:15] LABS: Alanine Aminotransferase 6 U/L (0-41); Albumin Level 3.2 g/dL (3.5-5.2); Alkaline Phosphatase 126 IU/L (40-130); Anion Gap 18.7 (5-19); Aspartate Amino Transferase 14 U/L (0-40); Blood Urea Nitrogen 24 mg/dL (8-23); Calcium 9.2 mg/dL (8.5-10.5); Carbon Dioxide 24 mmol/L (22-29); Chloride 96 mmol/L (98-107); Globulin 3.8 g/dL (1.3-4.6); Glomerular Filtration Rate 11.6 mL/min (90-130); Glucose 77 mg/dL (65-115); Osmolality Calculated 274 mOsm/kg (285-295); Parathyroid Hormone 147.8 pg/mL (15-65); Phosphorus 4.3 mg/dL (2.5-4.5); Potassium 4.7 mmol/L (3.5-5.1); Sodium 134 mmol/L (136-145); Total Bilirubin 0.4 mg/dL (0.15-1.2)
[2019-08-09] MEDS: amlodipine 10 mg Tablet PO (08:25)
[2019-08-09] MEDS: LORazepam 0.5 mg Tablet PO ×3 (08:25→19:58)
[2019-08-09] MEDS: FUROsemide 20 mg Tablet PO (08:25)
[2019-08-09] MEDS: clopidogrel 75 mg Tablet PO (08:25)
[2019-08-09] MEDS: sevelamer 800 mg Tablet PO ×3 (08:25→19:57)
[2019-08-09] MEDS: aspirin 81 mg EC Tablet PO (08:25)
[2019-08-09] MEDS: isosorbide mononitrate ER 60 mg Tablet PO (08:25)
[2019-08-09] MEDS: escitalopram 10 mg Tablet 20 MG PO (08:25)
[2019-08-09] MEDS: HYDROcodone-acetaminophen 5-325 mg Tablet 1 TAB PO ×2 (08:33→19:57)
--- NOTE | 2019-08-09 13:12 | P.PN_ITS ---
Subjective Subjective: Interval history: Neel reports he is doing okay. No complaints. Medications: Reviewed: Yes Vitals/I&O/Wt Last Vital Signs Temp 97.5 F L 08/09/19 11:08 Pulse 63 08/09/19 11:08 Resp 16 08/09/19 11:08 BP 116/46 08/09/19 11:08 Pulse Ox 92 08/09/19 11:08 08/08/19 08/09/19 08/09/19 22:59 06:59 14:59 Intake Total 490 / 850 360 / 360 Output Total 251 / 251 Balance 490 / 850 -251 / 599 360 / 360 Physical Exam Narrative: EXAM NARRATIVE: General exam no apparent distress, polite but confused Cardiovascular regular rate and rhythm, 2/6 systolic murmur. Right chest dialysis catheter noted Lungs clear Abdomen is soft with positive bowel sounds Extremities no cyanosis clubbing Data : 08/09/19 07:11 08/09/19 07:11 Micro: Microbiology 08/03/19 19:18 Blood Culture - Final Blood NO GROWTH AFTER 5 DAYS 08/03/19 19:18 Blood Culture - Final Blood NO GROWTH AFTER 5 DAYS A&P Assessment and plan (1) Altered mental status: I believe he is back to his baseline. Concern of urine culture on admission for which he received 3 days of IV antibiotics. Culture was negative. Rocephin has been discontinued. Awaiting nursing facility placement Status: Acute Code(s): R41.82 - Altered mental status, unspecified (2) Status post below-knee amputation of left lower extremity: Continue wound care Status: Acute Code(s): Z89.512 - Acquired absence of left leg below knee (3) Renal failure: Appreciate nephrology, for ongoing dialysis Status: Acute Code(s): N19 - Unspecified kidney failure (4) Diabetes: Hemoglobin A1c 5.1 Status: Chronic Code(s): E11.9 - Type 2 diabetes mellitus without complications (5) CAD (coronary artery disease): Asymptomatic Status: Chronic Code(s): I25.10 - Atherosclerotic heart disease of [place] coronary artery without angina pectoris (6) CHF (congestive heart failure): Compensated Status: Chronic Code(s): I50.9 - Heart failure, unspecified (7) HTN (hypertension): Controlled Status: Chronic Code(s): I10 - Essential (primary) hypertension (8) Elbow wound: No evidence of infection Status: Acute Code(s): S51.009A - Unspecified open wound of unspecified elbow, initial encounter Attestations Medical Necessity Statement*: Awaiting placement Coding Level of Care Code Acute Floor Finisher Helper for [facility] Fwd Diagnoses Altered mental status R41.82 Status post below-knee amputation of left lower extremity Z89.512 Renal failure N19 Diabetes E11.9 CAD (coronary artery disease) I25.10 CHF (congestive heart failure) I50.9 HTN (hypertension) I10 Elbow wound S51.009A
[2019-08-09] MEDS: enoxaparin 30 mg/0.3 mL Syringe SUBCUT (19:56)
[2019-08-09] MEDS: atorvastatin 40 mg Tablet 20 MG PO (19:57)
--- NOTE | 2019-08-09 22:35 | PHA.FALL ---
A Pharmacy Consult Was Conducted For Neel Austin Due To: [place] Fall Scale Risk Level: High Fall Risk On 08/09/19 20:00 And A Medication Fall Risk Score Greater Than 10. The Recommendations Are As Follows: Amlodipine may cause Orthostatic hypotension, dizziness, syncope, bradycardia, or impaired cerebral perfusion
[2019-08-09] MEDS: ipratropium-albuterol 3 mL Neb INHALATION (23:09)
[2019-08-10] VITALS (8 sets, daily range): BP systolic 106–155; BP diastolic 44–74; PULSE 35–66; RESP 16–20; TEMP 36.2–36.8; O2SAT 92–98
[2019-08-10] MEDS: HYDROcodone-acetaminophen 5-325 mg Tablet 1 TAB PO ×3 (02:23→14:37)
[2019-08-10] MEDS: haloperidol 1 mg Tablet 2 MG PO (06:15)
[2019-08-10 06:36] LABS: Basophils # 0.1 10^3/uL (0.0-0.1); Basophils % 1.3 %; Eosinophils # 0.2 10^3/uL (0.0-0.8); Eosinophils % 4.2 %; Hemoglobin 10.2 g/dL (11.7-16.6); Lymphocytes # 0.6 10^3/uL (0.8-4.8); Lymphocytes % 13.5 %; Mean Corpuscular Hemoglobin 26.6 pg (28.0-34.0); Mean Corpuscular Volume 88.8 fL (80-94); Mean Platelet Volume 11.1 fL (7.4-10.4); Monocytes # 0.5 10^3/uL (0.2-0.9); Monocytes % 10.8 %; Neutrophils # 3.2 10^3/uL (1.8-7.7); Nucleated Red Blood Cells % 0 %; Platelet Count 163 10^3/cmm (130-400); Red Blood Count 3.83 10^6/uL (4.1-5.3); Red Cell Distribution Width 16.6 % (12.1-15.1); White Blood Count 4.5 10^3/uL (4.0-10.0)
[2019-08-10 06:39] LABS: Alanine Aminotransferase 7 U/L (0-41); Albumin Level 3.3 g/dL (3.5-5.2); Alkaline Phosphatase 124 IU/L (40-130); Anion Gap 17.7 (5-19); Aspartate Amino Transferase 11 U/L (0-40); Blood Urea Nitrogen 41 mg/dL (8-23); Calcium 9.5 mg/dL (8.5-10.5); Carbon Dioxide 25 mmol/L (22-29); Chloride 96 mmol/L (98-107); Globulin 3.8 g/dL (1.3-4.6); Glomerular Filtration Rate 8.4 mL/min (90-130); Glucose 80 mg/dL (65-115); Magnesium 2.3 mg/dL (1.7-2.3); Osmolality Calculated 275 mOsm/kg (285-295); Potassium 4.7 mmol/L (3.5-5.1); Sodium 134 mmol/L (136-145); Total Bilirubin 0.4 mg/dL (0.15-1.2); Total Protein 7.1 g/dL (6.6-8.7)
--- NOTE | 2019-08-10 08:41 | P.PN_ITS ---
Subjective Subjective: Interval history: thins he is going home and refusing dialysis. somewhat confused. no complaints Medications: Reviewed: Yes Medication Review Details: Current Medications Acetaminophen (Tylenol) 650 mg PO Q6H PRN PRN Reason: Mild/Mod Pain Or Temp >/= 101 Last Admin: 08/06/19 10:30 Dose: 650 mg Documented by: Hydrocodone Bitart/Acetaminophen ([place] 5-325 Mg) 1 tab PO Q6H PRN PRN Reason: pain Last Admin: 08/10/19 02:23 Dose: 1 tab Documented by: Albuterol/Ipratropium (Duoneb) 3 ml INHALATION Q4H.RESPIRATORY PRN PRN Reason: Shortness Of Breath Last Admin: 08/09/19 23:09 Dose: 3 ml Documented by: Amlodipine Besylate (Norvasc) 10 mg PO DAILY [facility] Last Admin: 08/09/19 08:25 Dose: 10 mg Documented by: Aspirin (Aspirin Ec) 81 mg PO DAILY [facility] Last Admin: 08/09/19 08:25 Dose: 81 mg Documented by: Atorvastatin Calcium (Lipitor) 20 mg PO BEDTIME [facility] Last Admin: 08/09/19 19:57 Dose: 20 mg Documented by: Bisacodyl (Bisac-Evac) 10 mg [place] DAILY PRN PRN Reason: Constipation Bisacodyl (Dulcolax) 5 mg PO DAILY PRN PRN Reason: Constipation Clopidogrel Bisulfate (Plavix) 75 mg PO DAILY [facility] Last Admin: 08/09/19 08:25 Dose: 75 mg Documented by: Enoxaparin Sodium (Lovenox) 30 mg SUBCUT Q24H [facility] Last Admin: 08/09/19 19:56 Dose: 30 mg Documented by: Escitalopram Oxalate (Lexapro) 20 mg PO DAILY [facility] Last Admin: 08/09/19 08:25 Dose: 20 mg Documented by: Furosemide (Lasix) 20 mg PO BID [facility] Last Admin: 08/09/19 17:12 Dose: Not Given Documented by: Haloperidol (Haldol) 2 mg PO DAILY PRN PRN Reason: behavior Last Admin: 08/10/19 06:15 Dose: 2 mg Documented by: Isosorbide Mononitrate (Imdur) 60 mg PO DAILY [facility] Last Admin: 08/09/19 08:25 Dose: 60 mg Documented by: Lorazepam (Ativan) 0.5 mg PO TID [facility] Last Admin: 08/09/19 19:58 Dose: 0.5 mg Documented by: Non-Formulary Medication (Dextran 70-Hypromellose (Pf) [Natural Tears (Pf)]) 1 drop EYEAFF QID PRN PRN Reason: itchy eyes Ondansetron HCl (Zofran) 4 mg IVP Q8H PRN PRN Reason: vomiting, or N/V if npo Last Admin: 08/08/19 05:19 Dose: 4 mg Documented by: Sevelamer Carbonate (Renvela) 800 mg PO TID [facility] Last Admin: 08/09/19 19:57 Dose: 800 mg Documented by: Vitals/I&O/Wt Last Vital Signs Temp 97.4 F L 08/10/19 08:00 Pulse 44 L 08/10/19 08:00 Resp 18 08/10/19 08:00 BP 155/74 08/10/19 08:00 Pulse Ox 98 08/10/19 08:00 08/09/19 08/10/19 08/10/19 22:59 06:59 14:59 Intake Total 100 / 820 120 / 120 Output Total 0 / 0 Balance 0 / 720 100 / 820 120 / 120 Physical Exam Narrative: EXAM NARRATIVE: COMFORTABLE IN BED, nard. vss heent- nc/at- eomi, anicteric necvk supple lungs -clear b/l heart reg no rub abd soft, nt,nd, +BS ext- no edema, b/l BKA neuro- responsive and interactive- confused rt ant chest wall catheter Data : 08/10/19 05:59 08/10/19 05:59 A&P Assessment and plan (1) ESRD (end stage renal disease): pt has HD MWF. recommend hd today. as of now. pt is refusing. hd today or tomorrow. Status: Acute Code(s): N18.6 - End stage renal disease (2) Anemia: Hb within goal Status: Acute Code(s): D64.9 - Anemia, unspecified (3) HTN (hypertension): BP ok- fluid removal w/ HD Status: Chronic Code(s): I10 - Essential (primary) hypertension Additional A&P Information confusion and psych issues per hospitalist and psychiatry awaiting rehab placment Attestations Medical Necessity Statement*: per hospitalist Time Spent in Patient Care: 16 - 35 minutes i discussed w/ him in detail why he needs dialysis, and the risks of skipping dialysis Coding Level of Care Code Acute Outsole Cutter Machine for Chg Fwd Diagnoses ESRD (end stage renal disease) N18.6 Anemia D64.9 HTN (hypertension) I10
[2019-08-10] MEDS: LORazepam 0.5 mg Tablet PO ×2 (09:41→14:36)
[2019-08-10] MEDS: isosorbide mononitrate ER 60 mg Tablet PO (09:41)
[2019-08-10] MEDS: amlodipine 10 mg Tablet PO (09:42)
[2019-08-10] MEDS: escitalopram 10 mg Tablet 20 MG PO (09:42)
[2019-08-10] MEDS: sevelamer 800 mg Tablet PO ×2 (09:42→14:36)
[2019-08-10] MEDS: clopidogrel 75 mg Tablet PO (09:42)
[2019-08-10] MEDS: aspirin 81 mg EC Tablet PO (09:42)
[2019-08-10] MEDS: FUROsemide 20 mg Tablet PO ×2 (09:46→18:20)
[2019-08-10] MEDS: ondansetron 2 mg/ML SDV 2 mL 4 MG IVP (09:46)
--- NOTE | 2019-08-10 11:30 | P.PN_ITS ---
Subjective NPU Subjective: Interval history: Neel presented today essentially unchanged, showing the same mild dementia that would be expected with his circumstance, but without major concerns. He continued to answer questions fairly reasonably with some limited errors in cognition, but without significant holds of his historical data. He continued to deny lethality and denied any issues of c oncern. As he has, since his presentation here, many days ago, he maintains his desire to go home and not go back to the long-term. He does not demonstrate any aggression or difficulties during interview and reports that he is eating and sleeping okay. Mental Status Exam MSE Comments: This is a well-nourished, well-developed, older, white male, with limited dress and grooming, adequate eye contact. No abnormal movements except for mild psychomotor retardation. Cooperative with exam in no acute di stress. Speech was decreased rate and volume. Mood described as tired of being here; affect slightly irritable. Thought process, mostly organized. Thought content: patient denied any suicidal or homicidal ideation, there were no delusions reported or noted, patient denied any auditory or visual de jesus ucinations. Attention and concentration were intermittently intact, and memory had some deficits, but in general was intact. Historically speaking some short- term memory issues. He was alert and oriented times three. Insight and judgment are limited. Impulse control appeared fair. Vitals/I&O/Wt Last Vital Signs Temp 97.1 F L 08/10/19 11:40 Pulse 54 L 08/10/19 11:40 Resp 18 08/10/19 11:40 BP 106/44 08/10/19 11:40 Pulse Ox 98 08/10/19 11:40 Data NPU : 08/11/19 05:50 08/11/19 05:50 A&P Assessment and plan (1) Dementia: This is a 68 year old, white male, who is known to this specification writer through a previous consult earlier in the month, who presents with some cognitive deficits, but no significant psychiatric liabilities needing jose ramon-psychiatric intervention with current concerns as to what is the appropriate discharge. Continue current medication. There is no indication that he needs to have inpatient geriatric psychiatric intervention at this time. Though he shows signs of mild dementia, there is no current need for additional evaluation and treatment in an inpatient setting. If he were uncomfortable with going to a long-term, it would be appropriate, but the ability to force him to go to a facility is truly absent. Certainly, concerns exist about how he ended up here, as there have been no signs of the behaviors that were reported of him lashing out. He certainly has appropriate desire for his autonomy and has some limitations and certainly is overplaying what his ability will be for independent existence, but certainly would be able to manage himself with appropriate assistance. Status: Acute Attestations NPU Medical Necessity Statement*: N/A. Please see primary care/treatment teams note for medical necessity, but no need for inpatient psychiatric or jose ramon- psychiatric care noted. Coding Level of Care Code Acute Equipment Application Specialist for Angel Fwbrittany Diagnoses Dementia F03.90
--- NOTE | 2019-08-10 11:45 | PC.SOCIAL ---
IMM Updated IMM Updated and given to patient. Initialed, dated, and timed and placed back in chart.
--- NOTE | 2019-08-10 12:51 | PM.PN ---
Subjective Subjective: Interval history: Neel reported he was doing okay this morning but was not going to have dialysis. I visited with him again this afternoon, and he reports he is not going to have it. Nephrology had reviewed this with him as well. Medications: Reviewed: Yes Vitals/I&O/Wt Last Vital Signs Temp 97.1 F L 08/10/19 12:00 Pulse 54 L 08/10/19 12:00 Resp 18 08/10/19 12:00 BP 106/44 08/10/19 12:00 Pulse Ox 98 08/10/19 11:40 08/09/19 08/10/19 08/10/19 22:59 06:59 14:59 Intake Total 100 / 820 120 / 120 Output Total 0 / 0 Balance 0 / 720 100 / 820 120 / 120 Physical Exam Narrative: EXAM NARRATIVE: General exam no apparent distress, polite but confused Cardiovascular regular rate and rhythm, 2/6 systolic murmur. Right chest dialysis catheter noted Lungs clear Abdomen is soft with positive bowel sounds Extremities no cyanosis clubbing Data : 08/10/19 05:59 08/10/19 05:59 A&P Assessment and plan (1) Altered mental status: Has significant dementia, with behaviors. Psychiatry will see. Concern of urine culture on admission for which he received 3 days of IV antibiotics. Culture was negative. Rocephin has been discontinued. Awaiting nursing facility placement Status: Acute Code(s): R41.82 - Altered mental status, unspecified (2) Status post below-knee amputation of left lower extremity: Continue wound care Status: Acute Code(s): Z89.512 - Acquired absence of left leg below knee (3) Renal failure: Appreciate nephrology, for ongoing dialysis. He is refused dialysis today. He has a history of intermittently refusing dialysis. Status: Acute Code(s): N19 - Unspecified kidney failure (4) Diabetes: Hemoglobin A1c 5.1 Status: Chronic Code(s): E11.9 - Type 2 diabetes mellitus without complications (5) CAD (coronary artery disease): Asymptomatic Status: Chronic Code(s): I25.10 - Atherosclerotic heart disease of [place] coronary artery without angina pectoris (6) CHF (congestive heart failure): Compensated Status: Chronic Code(s): I50.9 - Heart failure, unspecified (7) HTN (hypertension): Controlled Status: Chronic Code(s): I10 - Essential (primary) hypertension (8) Elbow wound: No evidence of infection Status: Acute Code(s): S51.009A - Unspecified open wound of unspecified elbow, initial encounter Attestations Medical Necessity Statement*: Needs continued hospital stay pending placement. Coding Level of Care Code Acute Relief Driller for g Fwd Diagnoses Altered mental status R41.82 Status post below-knee amputation of left lower extremity Z89.512 Renal failure N19 Diabetes E11.9 CAD (coronary artery disease) I25.10 CHF (congestive heart failure) I50.9 HTN (hypertension) I10 Elbow wound S51.009A
--- NOTE | 2019-08-10 20:25 | PC.NURSE ---
pt taken to dialysis
[2019-08-11] VITALS (10 sets, daily range): BP systolic 90–128; BP diastolic 38–78; PULSE 36–92; RESP 16–24; TEMP 35.7–36.6; O2SAT 93–95
--- NOTE | 2019-08-11 00:37 | PC.NURSE ---
pt back in room from dialysis.
[2019-08-11] MEDS: HYDROcodone-acetaminophen 5-325 mg Tablet 1 TAB PO ×3 (01:04→15:56)
[2019-08-11] MEDS: haloperidol inj 5 mg/mL INJ 1 mL 2 MG IVP (01:11)
[2019-08-11 06:22] LABS: Basophils # 0.1 10^3/uL (0.0-0.1); Basophils % 1.3 %; Eosinophils # 0.2 10^3/uL (0.0-0.8); Eosinophils % 4.9 %; Hematocrit 34.1 % (42.0-52.0); Hemoglobin 10.2 g/dL (11.7-16.6); Lymphocytes # 0.5 10^3/uL (0.8-4.8); Lymphocytes % 13.9 %; Mean Corpuscular HGB Conc 29.9 g/dL (30.0-36.0); Mean Corpuscular Hemoglobin 27.5 pg (28.0-34.0); Mean Corpuscular Volume 91.9 fL (80-94); Mean Platelet Volume 11.5 fL (7.4-10.4); Monocytes # 0.4 10^3/uL (0.2-0.9); Monocytes % 9.8 %; Neutrophils # 2.7 10^3/uL (1.8-7.7); Neutrophils % 69.6 %; Nucleated Red Blood Cells % 0 %; Platelet Count 153 10^3/cmm (130-400); Red Blood Count 3.71 10^6/uL (4.1-5.3); Red Cell Distribution Width 16.5 % (12.1-15.1); White Blood Count 3.9 10^3/uL (4.0-10.0)
[2019-08-11 06:35] LABS: Alanine Aminotransferase 7 U/L (0-41); Albumin Level 3.4 g/dL (3.5-5.2); Alkaline Phosphatase 125 IU/L (40-130); Anion Gap 15.4 (5-19); Aspartate Amino Transferase 10 U/L (0-40); Blood Urea Nitrogen 20 mg/dL (8-23); Calcium 9.2 mg/dL (8.5-10.5); Carbon Dioxide 27 mmol/L (22-29); Chloride 97 mmol/L (98-107); Globulin 3.7 g/dL (1.3-4.6); Glomerular Filtration Rate 14.5 mL/min (90-130); Glucose 76 mg/dL (65-115); Magnesium 2.2 mg/dL (1.7-2.3); Osmolality Calculated 275 mOsm/kg (285-295); Phosphorus 3.4 mg/dL (2.5-4.5); Potassium 4.4 mmol/L (3.5-5.1); Sodium 135 mmol/L (136-145); Total Bilirubin 0.4 mg/dL (0.15-1.2); Total Protein 7.1 g/dL (6.6-8.7)
[2019-08-11] MEDS: sevelamer 800 mg Tablet PO ×2 (09:34→15:56)
[2019-08-11] MEDS: amlodipine 10 mg Tablet PO (09:34)
[2019-08-11] MEDS: aspirin 81 mg EC Tablet PO (09:35)
[2019-08-11] MEDS: clopidogrel 75 mg Tablet PO (09:35)
[2019-08-11] MEDS: ipratropium-albuterol 3 mL Neb INHALATION (09:36)
[2019-08-11] MEDS: isosorbide mononitrate ER 60 mg Tablet PO (09:36)
[2019-08-11] MEDS: haloperidol 1 mg Tablet 2 MG PO (09:36)
[2019-08-11] MEDS: FUROsemide 20 mg Tablet PO (09:37)
[2019-08-11] MEDS: LORazepam 0.5 mg Tablet PO ×2 (09:37→15:56)
[2019-08-11] MEDS: escitalopram 10 mg Tablet 20 MG PO (09:37)
--- NOTE | 2019-08-11 10:33 | P.PN_ITS ---
Subjective Subjective: Interval history: Remains very confused but appears to comfortable. Dialyzed last night. No additional uremic Sx. Ferraro is out. Medications: Reviewed: Yes Medication Review Details: Current Medications Acetaminophen (Tylenol) 650 mg PO Q6H PRN PRN Reason: Mild/Mod Pain Or Temp >/= 101 Last Admin: 08/06/19 10:30 Dose: 650 mg Documented by: Hydrocodone Bitart/Acetaminophen ([place] 5-325 Mg) 1 tab PO Q6H PRN PRN Reason: pain Last Admin: 08/10/19 02:23 Dose: 1 tab Documented by: Albuterol/Ipratropium (Duoneb) 3 ml INHALATION Q4H.RESPIRATORY PRN PRN Reason: Shortness Of Breath Last Admin: 08/09/19 23:09 Dose: 3 ml Documented by: Amlodipine Besylate (Norvasc) 10 mg PO DAILY [facility] BEDS AT [facility] Last Admin: 08/09/19 08:25 Dose: 10 mg Documented by: Aspirin (Aspirin Ec) 81 mg PO DAILY [facility] BEDS [facility] Last Admin: 08/09/19 08:25 Dose: 81 mg Documented by: Atorvastatin Calcium (Lipitor) 20 mg PO BEDTIME [facility] 234 BEDS AT [facility] Last Admin: 08/09/19 19:57 Dose: 20 mg Documented by: Bisacodyl (Bisac-Evac) 10 mg [place] DAILY PRN PRN Reason: Constipation Bisacodyl (Dulcolax) 5 mg PO DAILY PRN PRN Reason: Constipation Clopidogrel Bisulfate (Plavix) 75 mg PO DAILY [facility] 234 BEDS AT [facility] Last Admin: 08/09/19 08:25 Dose: 75 mg Documented by: Enoxaparin Sodium (Lovenox) 30 mg SUBCUT Q24H [facility] 234 BEDS AT [facility] Last Admin: 08/09/19 19:56 Dose: 30 mg Documented by: Escitalopram Oxalate (Lexapro) 20 mg PO DAILY [facility] 234 BEDS AT [facility] Last Admin: 08/09/19 08:25 Dose: 20 mg Documented by: Furosemide (Lasix) 20 mg PO BID [facility] 234 BEDS AT [facility] Last Admin: 08/09/19 17:12 Dose: Not Given Documented by: Haloperidol (Haldol) 2 mg PO DAILY PRN PRN Reason: behavior Last Admin: 08/10/19 06:15 Dose: 2 mg Documented by: Isosorbide Mononitrate (Imdur) 60 mg PO DAILY [facility] 234 BEDS AT [facility] Last Admin: 08/09/19 08:25 Dose: 60 mg Documented by: Lorazepam (Ativan) 0.5 mg PO TID [facility] 234 BEDS AT [facility] Last Admin: 08/09/19 19:58 Dose: 0.5 mg Documented by: Non-Formulary Medication (Dextran 70-Hypromellose (Pf) [Natural Tears (Pf)]) 1 drop EYEAFF QID PRN PRN Reason: itchy eyes Ondansetron HCl (Zofran) 4 mg IVP Q8H PRN PRN Reason: vomiting, or N/V if npo Last Admin: 08/08/19 05:19 Dose: 4 mg Documented by: Sevelamer Carbonate (Renvela) 800 mg PO TID [facility] 234 BEDS AT [facility] Last Admin: 08/09/19 19:57 Dose: 800 mg Documented by: Vitals/I&O/Wt Last Vital Signs Temp 96.3 F L 08/11/19 08:00 Pulse 63 08/11/19 09:38 Resp 18 08/11/19 09:38 BP 110/60 08/11/19 08:35 Pulse Ox 93 08/11/19 09:38 08/10/19 08/11/19 08/11/19 22:59 06:59 14:59 Intake Total 240 / 360 50 / 410 Balance 240 / 360 50 / 410 Physical Exam Const: COMMON NORMALS: no apparent distress and average body habitus HENMT: COMMON NORMALS: normocephalic and head/scalp atraumatic HEAD & SC ALP: normocephalic and atraumatic Chest: COMMONS NORMALS: inspection of chest normal and palpation of chest normal Resp: COMMON NORMALS: normal respiratory effort and no retractions Cardio: COMMON NORMALS: regular rate RATE: regular rate GI: INSPECTION: Yes normal to inspection and No abdominal wall ecchymosis Data : 08/11/19 05:50 08/11/19 05:50 A&P Additional A&P Information 1. ESRD - plan for dialysis tomorrow and cont MWF schedule - 2K, UF 2-3L, 3.5hrs 2. AMS - due to dementia; some degree of acute metabolic encephalopathy 3. UTI s/p treatment 4. Lytes look good 5. Hemodynamics stable 6. Discharge placement is pending Attestations Medical Necessity Statement*: esrd mgmt Coding Level of Care Code Acute Quality Liaison for Chg Fwd Exam Detailed
--- NOTE | 2019-08-11 11:59 | PC.CHAP ---
Pastoral Care Encounter/Spiritual Assessment Type of Contact [] Declined metal rivet machine operator visit [] Patient/Family/Request visit [] Outpatient visit [] Follow-up visit [] Physician referral [] Code/Alert [x] Routine visit [] Staff referral [] Actively dying [] Patient sleeping [] Family support [] [] Out of room [] Palliative care [] [] Receiving care in room [] Pre-surgical visit [] Trauma [] Long length of stay [] ICU visit [] Other: Relational/Emotional Strength [] Patient feels connected with others/family/visitors/staff [] Distress [] Loneliness/isolation [] Abandonment Spirituality of Patient [] Person of Polina [] Attends Voodoo of their Polina [] Believes in Prayer [] Reads Bible or Jainism materials [x] There are Spiritual issues to be addressed Woodworking 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 Interventions [x] Prayer [] Active listening [] Non-anxious presence [] Spiritual/emotional support [] Crisis/trauma care [] Spiritual counseling [] Bereavement support [] Provided bereavement packet [] Provided Bible/devotional materials [] Provided toy/stuffed animal, coloring book to patient or family member [] Provided Communion [] Anointing/[place] [] Salvation [] Completed spiritual assessment [] Other: Impact on Illness or Injury [] Angry [] Fearful [] Anxious [] Often cries [] Exhaustion [] Unable to work [] Unable to attend temple [] Unable to walk/stand [] Unable to read [] Unable to drive [] Unable to eat/drink [] Unable to sleep [] Unable to be with family [] Patient intubated [] Other: Summary Patient demonstrated mental issues in comprehension. Time spent with patient: 3 minutes
--- NOTE | 2019-08-11 14:59 | P.DS_ITS ---
Discharge Providers Date of Admission: 08/03/19 18:08 Date of Discharge: August 11, 2019 Attending Provider at Admission: Nimesh Serna MD Attending Provider at Discharge: Terry Pereyra MD Primary Care Provider: [facility] Diagnoses at Discharge Discharge Diagnosis (1) Altered mental status: Status: Acute Problem details: Resolved, but patient with underlying dementia with behaviors (2) Status post below-knee amputation of left lower extremity: Status: Acute (3) Renal failure: Status: Acute Problem details: On dialysis (4) Diabetes: Status: Chronic Problem details: Sugar is normal, on no current medicines (5) CAD (coronary artery disease): Status: Chronic Problem details: Asymptomatic (6) CHF (congestive heart failure): Status: Chronic Problem details: Compensated on dialysis (7) HTN (hypertension): Status: Chronic Problem details: Controlled (8) Elbow wound: Status: Acute Reason for Visit Reason for Visit: Reason For Visit: PSYCH EVAL Hospital Course Hospital Course: Neel is a 68-year-old white male who presented to the hospital with increasing behaviors. The [facility] did not believe they could take him back. Concerns of urinary tract infection were noted on urinalysis. Loli quinonez was placed on Rocephin. Urine culture eventually came back without any growth. The rest of his hospital stay was spent in trying to treat placement, and providing dialysis when he would allow it. Behavior the hospital is overall well controlled with no significant concerning outbursts. After multiple placement options were entertained by discharge planning it was apparent the patient would need to go home. Family reported they would take him home on hospice, but continue his dialysis. This was arranged and he was discharged on August 10. Physical Exam Narrative: EXAM NARRATIVE: General exam no distress Cardiovascular regular rate and rhythm Lungs clear Abdomen is soft with positive bowel sounds Extremities no edema Discharge Data Data Completed and Pending: Pending at discharge Category Date Time Status Complete Blood Co unt w/Auto AM LABS Lab 08/12/19 04:00 Ordered Complete Blood Co unt w/Auto AM LABS Lab 08/12/19 04:00 Ordered Complete Blood Co unt w/Auto AM LABS Lab 08/13/19 04:00 Ordered Comprehensive Met abolic Panel AM LA BS Lab 08/12/19 04:00 Ordered Comprehensive Met abolic Panel AM LA BS Lab 08/12/19 04:00 Ordered Comprehensive Met abolic Panel AM LA BS Lab 08/13/19 04:00 Ordered Magnesium AM LABS Lab 08/12/19 04:00 Ordered Magnesium AM LABS Lab 08/12/19 04:00 Ordered Magnesium AM LABS Lab 08/13/19 04:00 Ordered Phosphorus AM LAB S Lab 08/12/19 04:00 Ordered Phosphorus AM LAB S Lab 08/12/19 04:00 Ordered Phosphorus AM LAB S Lab 08/13/19 04:00 Ordered Labs from last 24 hours 08/11/19 08/11/19 05:50 05:50 WBC 3.9 L RBC 3.71 L Hgb 10.2 L Hct 34.1 L MCV 91.9 MCH 27.5 L MCHC 29.9 L RDW 16.5 H Plt Count 153 MPV 11.5 H Neut % (Auto) 69.6 Lymph % (Auto) 13.9 [place] % (Auto) 9.8 Eos % (Auto) 4.9 Baso % (Auto) 1.3 Neut # (Auto) 2.7 Lymph # (Auto) 0.5 L [place] # (Auto) 0.4 Eos # (Auto) 0.2 Baso # (Auto) 0.1 Nucleated RBC % (a uto) 0 Nucleated RBCs # 0.0 Sodium 135 L Potassium 4.4 Chloride 97 L Carbon Dioxide 27 Anion Gap 15.4 BUN 20 Creatinine 4.1 H GFR Calculation 14.5 L Glucose 76 Calculated Osmolal ity 275 L Calcium 9.2 Phosphorus 3.4 Magnesium 2.2 Total Bilirubin 0.4 AST 10 ALT 7 Alkaline Phosphata se 125 Total Protein 7.1 Albumin 3.4 L Globulin 3.7 Vitals: Last Vital Signs Temp 97.0 F L 08/11/19 12:00 Pulse 92 08/11/19 12:00 Resp 17 08/11/19 12:00 BP 110/50 08/11/19 12:00 Pulse Ox 95 08/11/19 12:00 Discharge Plan Discharge Patient Disposition: Hospice - Home Condition: Stable Prescriptions: Continued aspirin [Adult Low Dose Aspirin] 81 mg Tablet,Delayed Release (Dr/Ec) 81 mg PO DAILY RF: 0 clopidogrel 75 mg Tablet 75 mg PO DAILY RF: 0 sevelamer HCl 800 mg Tablet 800 mg PO TID RF: 0 isosorbide mononitrate 120 mg Tablet Extended Release 24 Hr 60 mg PO DAILY RF: 0 pravastatin 80 mg Tablet 80 mg PO BEDTIME RF: 0 amlodipine 10 mg Tablet 10 mg PO DAILY RF: 0 acetaminophen 325 mg Tablet 325 mg PO QID PRN (Reason: Pain) RF: 0 ipratropium-albuterol 0.5 mg-3 mg(2.5 mg base)/3 mL Solution For Nebulization 3 ml INHALATION Q4H PRN (Reason: Shortness Of Breath) RF: 0 hydrocodone-acetaminophen 5-325 mg Tablet 1 tab PO Q6H PRN (Reason: pain) RF: 0 Dulcolax (bisacodyl) 10 mg Suppository 10 mg [place] DAILY PRN (Reason: Constipation) RF: 0 Dulcolax (bisacodyl) 5 mg Tablet,Delayed Release (Dr/Ec) 5 mg PO DAILY PRN (Reason: Constipation) RF: 0 Lasix 20 mg Tablet 20 mg PO BID RF: 0 haloperidol 2 mg Tablet 2 mg PO DAILY PRN (Reason: behavior) RF: 0 Lexapro 20 mg Tablet 20 mg PO DAILY RF: 0 Natural Tears (PF) 0.1-0.3 % Dropperette 1 drp OPHTHALMIC (EYE) QID PRN (Reason: itchy eyes) RF: 0 Ativan 0.5 mg Tablet 0.5 mg PO TID RF: 0 Discharge Orders: Discharge Order (Routine); Ordered 08/11/19 Ordered By: Terry Pereyra Discharge Diet: Usual diet Discharge Activity: Resume usual activity Patient Instructions: Urinary Tract Infection in Men (ED) Activity Restrictions/Additional Instructions: Home with hospice. Keep regular follow-up for your hemodialysis which is continuing. Follow-up with your primary care provider in 3 to 5 days or hospice physician provider. Continue to follow-up with nephrology. Discharge Attestations Time Spent in Discharge Care*: greater than 30 min Status at Discharge: Cognitive status at discharge: cognitively intact , Behavioral status at discharge: cooperative , Quality Metrics Clinical Quality Measures During this hospital stay, did patient experience: None Coding Level of Care Code Acute Paramedic for Angel Fwd Diagnoses Altered mental status R41.82 Status post below-knee amputation of left lower extremity Z89.512 Renal failure N19 Diabetes E11.9 CAD (coronary artery disease) I25.10 CHF (congestive heart failure) I50.9 HTN (hypertension) I10 Elbow wound S51.009A
--- NOTE | 2019-09-06 07:33 | PM.PSYCN ---
Providers/Reason for Consult Consulting Physican/Specialty*: Rodriguez Waddell MD. Psychiatry. Reason for Consult*: Mental status evaluation Requesting Physcian: Nimesh Serna Attending Physician: Terry Pereyra MD Primary Care Provider: [facility] Psych Consult HPI History of Present Illness Neel Austin is a 68 year old male [facility] NPU PFSH: Medical History (Updated 09/12/19 @ 08:00 by Hardy Morales DO) Anemia CAD (coronary artery disease) Asymptomatic CHF (congestive heart failure) Compensated on dialysis CVA (cerebral vascular accident) Diabetes Sugar is normal, on no current medicines ESRD (end stage renal disease) Gout HTN (hypertension) Controlled Hyperkalemia Myocardial infarction Osteomyelitis Pneumonia Renal failure Sickle cell disease Surgical History 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 Social History Smoking and tobacco status: never smoked Vitals/I&O/Wt Last Vital Signs Temp 97.3 F L 08/11/19 16:39 Pulse 44 L 08/11/19 16:39 Resp 16 08/11/19 16:39 BP 114/65 08/11/19 16:39 Pulse Ox 94 08/11/19 15:41 Attestations NPU Medical Necessity Statement*: N/A. Please see primary team note for medical necessity. No current inpatient psychiatric services indicated. Coding Level of Care Code Acute Individual Small Group Instructor for Angel Winn
== END 2019-08-11 16:40 | disposition hospice, home (50) ==
LOC: ER 18:06 → MEDSURG 19:03
PROVIDERS: Internal Medicine Nephrology; Admitting Provider Family Medicine; Emergency Provider Emergency Medicine; Visit Provider Internal Medicine
DX: R41.82 Altered mental status, unspecified (principal); Z89.512 Acquired absence of left leg below knee; I25.10 Atherosclerotic heart disease of native coronary artery without angina pectoris; S51.009A Unspecified open wound of unspecified elbow, initial encounter; W19.XXXA Unspecified fall, initial encounter; E11.22 Type 2 diabetes mellitus with diabetic chronic kidney disease; I13.2 Hypertensive heart and chronic kidney disease with heart failure and with stage 5 chronic kidney disease, or end stage renal disease; I50.9 Heart failure, unspecified; N18.6 End stage renal disease; Z86.73 Personal history of transient ischemic attack (TIA), and cerebral infarction without residual deficits; I25.2 Old myocardial infarction; D64.9 Anemia, unspecified; Z91.15 Patient's noncompliance with renal dialysis; Z99.2 Dependence on renal dialysis
CPT/HCPCS: 12345; 36415; 80053; 80307; 81001; 82310; 83036; 83735; 83970; 84100; 84443; 85025; 87040; 87086; 90935; 93005; 94640; 96372; 96375; 97110; 97162; 97167; 97530; 99284; 99285; G0378; J0696; J1630; J1650; J2405; Q3014

== ENCOUNTER 2019-09-12 06:32 | Emergency (ER) | payer OTHER, SELFPAY ==
--- NOTE | 2019-09-12 06:34 | W.ED.FALL ---
HPI - Fall General: Chief Complaint: Fall Stated Complaint: fall Time Seen by Provider: 09/12/19 06:34 History of Present Illness: HPI Narrative: 68-year-old male presents emergency room via EMS with a complaint of fall. He was at dialysis in the waiting room and essentially slid out of the wheelchair and was found on the ground. He is complaining of right hip pain. He is aware he was plus go to dialysis and that he is now at the hospital but is difficult to get much other history form he denies chest pain cough or shortness of breath. He usually gets dialysis Thursday. complaint: fall Onset (ago): minute(s) Fall from: wheelchair Fall witnessed: no Place fall occurred: other (Freestanding dialysis unit) Loss of consciousness: None Prolonged down time: no Symptoms prior to fall: none Context: tripped/slipped (Slipped out of wheelchair) Location of injury: pelvis (Right) Associated symptoms-after fall: Denies abdominal pain or chest pain Review of Systems Const: Denies: fever, chills, body aches, change in appetite, fatigue or malaise ENMT: Denies: throat pain, ear pain, nasal discharge or nasal congestion Card: Denies: chest pain, edema, shortness of breath on exertion or shortness of breath when lying down Resp: Denies: shortness of breath, productive cough or non-productive cough GI: Denies: abdominal pain, nausea, vomiting, vomiting blood, coffee grounds in vomit, diarrhea, constipation, bloating, blood in stool or black tarry stool : Denies: flank pain, painful urination, urinary frequency or urinary urgency Skin/Breast: Denies: rash or itching PFS ED PFSH: Medical History (Updated 09/12/19 @ 08:00 by Hardy Morales DO) Anemia CAD (coronary artery disease) Asymptomatic CHF (congestive heart failure) Compensated on dialysis CVA (cerebral vascular accident) Diabetes Sugar is normal, on no current medicines ESRD (end stage renal disease) Gout HTN (hypertension) Controlled Hyperkalemia Myocardial infarction Osteomyelitis Pneumonia Renal failure Sickle cell disease Surgical History 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 Social History Smoking and tobacco status: never smoked Physical Exam Const: COMMON NORMALS: no apparent distress GENERAL APPEARANCE: cooperative and comfortable ORIENTATION/CONSCIOUSNESS: Yes awake HENMT: COMMON NORMALS: normocephalic, head/scalp atraumatic, external ears normal, EAC's normal, TM's normal bilaterally, nasal mucous membranes and turbinates normal, moist oral mucous membranes and oropharynx normal HEAD & SCALP: normocephalic and atraumatic NOSE: nasal mucous membranes and turbinates normal EXTERNAL EAR: Yes external ears normal EXTERNAL AUDITORY CANAL: EAC's normal TYMPANIC MEMBRANE: TM's normal bilaterally Eye: COMMON NORMALS: PERRL, EOMs intact bilaterally, conjunctivae normal and no scleral icterus CONJUNCTIVA: Yes conjunctivae normal PUPIL: Yes PERRL Neck/C-Spine: COMMON NORMALS: full ROM, no lymphadenopathy, supple and no JVD Lymph: LYMPHATIC: no lymphadenopathy noted and no lymphedema noted Resp: COMMON NORMALS: normal respiratory effort, no retractions, no use of accessory muscles and clear to auscultation bilaterally AUSCULTATION: clear to auscultation bilaterally Cardio: COMMON NORMALS: no JVD, regular rate, regular rhythm and no murmurs RATE: regular rate RHYTHM: regular rhythm GI: COMMON NORMALS: soft to palpation and no hepatosplenomegaly AUSCULTATION: Yes normoactive bowel sounds PALPATION: Yes soft, No tender, No guarding and Yes no hepatosplenomegaly Extremity: COMMON NORMALS: normal to inspection, normal capillary refill and no clubbing, cyanosis or edema NARRATIVE EXTREMITY EXAM: Bilateral below the knee amputations Skin: COMMON NORMALS: no rashes or lesions noted GENERAL SKIN EXAM: no rashes or lesions noted Course Vital Signs: Vital signs: Vital Signs Temperature 98.8 F 09/12/19 08:55 Pulse Rate 67 09/12/19 08:55 Respiratory Rate 16 09/12/19 08:55 Blood Pressure 173/96 09/12/19 08:55 Pulse Oximetry 100 09/12/19 08:55 MDM - Fall MDM Narrative: Medical decision making narrative: Patient presents with complaint of right hip pain. After slipping out of the wheelchair at dialysis. X-rays do not show any fracture exam is unremarkable. A little difficult to get patient to answer questions appropriately. We did contact his she states this has common behavior immediately prior to his dialysis runs. we will go ahead and discharge him back to patient renal dialysis clinic so he can get his dialysis run today. Lab Data: Labs: Lab Results 09/12/19 09/12/19 Range/Units 07:02 07:02 WBC 5.6 (4.0-10.0) 10^3/ uL RBC 4.99 (4.1-5.3) 10^6/u L Hgb 13.9 (11.7-16.6) g/dL Hct 46.4 (42.0-52.0) % MCV 93.0 (80-94) fL MCH 27.9 L (28.0-34.0) pg MCHC 30.0 (30.0-36.0) g/dL RDW 18.8 H (12.1-15.1) % Plt Count 151 (130-400) 10^3/c mm MPV 10.6 H (7.4-10.4) fL Neut % (Auto) 78.5 % Lymph % (Auto) 7.7 % Hutchinson % (Auto) 10.6 % Eos % (Auto) 2.1 % Baso % (Auto) 0.9 % Neut # (Auto) 4.4 (1.8-7.7) 10^3/u L Lymph # (Auto) 0.4 L (0.8-4.8) 10^3/u L Hutchinson # (Auto) 0.6 (0.2-0.9) 10^3/u L Eos # (Auto) 0.1 (0.0-0.8) 10^3/u L Baso # (Auto) 0.1 (0.0-0.1) 10^3/u L Nucleated RBC % (a uto) 0 % Nucleated RBCs # 0.0 /100WBC Sodium 135 L (136-145) mmol/L Potassium 3.2 L (3.5-5.1) mmol/L Chloride 95 L (98-107) mmol/L Carbon Dioxide 24 (22-29) mmol/L Anion Gap 19.2 H (5-19) BUN 24 H (8-23) mg/dL Creatinine 6.4 H* (0.7-1.2) mg/dL GFR Calculation 8.7 L (90-130) mL/min Glucose 98 (65-115) mg/dL Calculated Osmolal ity 277 L (285-295) mOsm/k g Calcium 9.5 (8.5-10.5) mg/dL Discharge Plan Discharge Patient Disposition: Home, Self-Care Clinical Impression: Fall involving wheelchair, Renal failure, Anemia Condition: Stable Prescriptions: No Action aspirin [Adult Low Dose Aspirin] 81 mg Tablet,Delayed Release (Dr/Ec) 81 mg PO DAILY RF: 0 clopidogrel 75 mg Tablet 75 mg PO DAILY RF: 0 sevelamer HCl 800 mg Tablet 800 mg PO TID RF: 0 isosorbide mononitrate 120 mg Tablet Extended Release 24 Hr 60 mg PO DAILY RF: 0 pravastatin 80 mg Tablet 80 mg PO BEDTIME RF: 0 amlodipine 10 mg Tablet 10 mg PO DAILY RF: 0 acetaminophen 325 mg Tablet 325 mg PO QID PRN (Reason: Pain) RF: 0 ipratropium-albuterol 0.5 mg-3 mg(2.5 mg base)/3 mL Solution For Nebulization 3 ml INHALATION Q4H PRN (Reason: Shortness Of Breath) RF: 0 hydrocodone-acetaminophen 5-325 mg Tablet 1 tab PO Q6H PRN (Reason: pain) RF: 0 Dulcolax (bisacodyl) 10 mg Suppository 10 mg CO DAILY PRN (Reason: Constipation) RF: 0 Dulcolax (bisacodyl) 5 mg Tablet,Delayed Release (Dr/Ec) 5 mg PO DAILY PRN (Reason: Constipation) RF: 0 Lasix 20 mg Tablet 20 mg PO BID RF: 0 haloperidol 2 mg Tablet 2 mg PO DAILY PRN (Reason: behavior) RF: 0 Lexapro 20 mg Tablet 20 mg PO DAILY RF: 0 Natural Tears (PF) 0.1-0.3 % Dropperette 1 drp OPHTHALMIC (EYE) QID PRN (Reason: itchy eyes) RF: 0 Ativan 0.5 mg Tablet 0.5 mg PO TID RF: 0 Discharge Orders: Discharge Order (Routine); Ordered 09/12/19 Ordered By: Hardy Morales Discharge Diet: Usual diet Discharge Activity: Increase activity as tolerated Discharge Date/Time: 09/12/19 10:15 Coding Level of Care Code ED [employer] for [employer]g Fwd Exam Comprehensive
[2019-09-12 06:35] VITALS: BP 183/103; PULSE 76; RESP 16; TEMP 35.9; O2SAT 100; BMI 25.1
--- NOTE | 2019-09-12 06:52 | XR_ITS ---
WS: [id number] RIGHT HIP HISTORY: fall/pain COMPARISON: None available. Right hip: No acute fracture or dislocation. Mild degenerative changes at the hip joint. Extensive vascular calcifications. XR/XR hip RT 2-3V wo/w pel* [id number] IMPRESSION: 1. No hip fracture. 2. Osteopenia and severe atherosclerosis. 3. If hip pain persists consider CT evaluation.
[2019-09-12 07:16] LABS: Basophils # 0.1 10^3/uL (0.0-0.1); Basophils % 0.9 %; Eosinophils # 0.1 10^3/uL (0.0-0.8); Eosinophils % 2.1 %; Hematocrit 46.4 % (42.0-52.0); Hemoglobin 13.9 g/dL (11.7-16.6); Lymphocytes # 0.4 10^3/uL (0.8-4.8); Lymphocytes % 7.7 %; Mean Corpuscular Hemoglobin 27.9 pg (28.0-34.0); Mean Platelet Volume 10.6 fL (7.4-10.4); Monocytes # 0.6 10^3/uL (0.2-0.9); Monocytes % 10.6 %; Neutrophils # 4.4 10^3/uL (1.8-7.7); Neutrophils % 78.5 %; Nucleated Red Blood Cells % 0 %; Platelet Count 151 10^3/cmm (130-400); Red Blood Count 4.99 10^6/uL (4.1-5.3); Red Cell Distribution Width 18.8 % (12.1-15.1); White Blood Count 5.6 10^3/uL (4.0-10.0)
[2019-09-12 07:17] VITALS: BP 173/99; PULSE 52; RESP 16; O2SAT 100
[2019-09-12 07:37] LABS: Anion Gap 19.2 (5-19); Blood Urea Nitrogen 24 mg/dL (8-23); Calcium 9.5 mg/dL (8.5-10.5); Carbon Dioxide 24 mmol/L (22-29); Chloride 95 mmol/L (98-107); Glomerular Filtration Rate 8.7 mL/min (90-130); Glucose 98 mg/dL (65-115); Osmolality Calculated 277 mOsm/kg (285-295); Potassium 3.2 mmol/L (3.5-5.1); Sodium 135 mmol/L (136-145)
--- NOTE | 2019-09-12 07:57 | PC.NURSE ---
Nurse Communication This nurse called and spoke with patient's , Nenita. Patient's reports that patient is frequently confused on his normal baseline. Patient's states he is in and out of orientation and this has been his regular at home as well. Patient's states this is often worse on his few days between dialysis. Patient has shown no other signs of illness or issues at home prior to today's incident. Patient is aware he is at the hospital but is not oriented to date and time.
--- NOTE | 2019-09-12 07:59 | PC.NURSE ---
Nurse Communication This nurse called and spoke with dialysis nurseNenita. Nurse states that patient will be able to get dialysis when transport is available to get him back to the clinic.
[2019-09-12 08:08] VITALS: BP 164/104; PULSE 63; RESP 16; O2SAT 95
--- NOTE | 2019-09-12 08:09 | PC.NURSE ---
Transport Request for transport from ED to [facility] faxed to [facility].
[2019-09-12 08:36] VITALS: BP 177/97; PULSE 62; RESP 18; O2SAT 96
[2019-09-12 08:55] VITALS: BP 173/96; PULSE 67; RESP 16; TEMP 37.1; O2SAT 100
== END 2019-09-12 10:15 | disposition home or self-care (01) ==
PROVIDERS: Emergency Provider Family Medicine
DX: M25.551 Pain in right hip (principal); Z91.81 History of falling; I25.10 Atherosclerotic heart disease of native coronary artery without angina pectoris; E11.22 Type 2 diabetes mellitus with diabetic chronic kidney disease; I13.2 Hypertensive heart and chronic kidney disease with heart failure and with stage 5 chronic kidney disease, or end stage renal disease; N18.6 End stage renal disease; Z86.73 Personal history of transient ischemic attack (TIA), and cerebral infarction without residual deficits; I25.2 Old myocardial infarction; Z96.653 Presence of artificial knee joint, bilateral; Z79.82 Long term (current) use of aspirin; Z79.891 Long term (current) use of opiate analgesic; M85.88 Other specified disorders of bone density and structure, other site; I70.91 Generalized atherosclerosis; D64.9 Anemia, unspecified
CPT/HCPCS: 12345; 36415; 73502; 80048; 85025; 99281; 99283